=== PATIENT | male | born 1975 | race Caucasian/White ===

== ENCOUNTER → 2020-11-15 08:43 | Outpatient (BNVA) | payer OTHER, SELFPAY | PROVIDERS: PCP Internal Medicine Pulmonary Disease; Visit Provider Internal Medicine Gastroenterology | DX: Z76.89 Persons encountering health services in other specified circumstances (principal) ==

== ENCOUNTER → 2021-05-26 09:02 | Outpatient (BNVA) | payer OTHER, SELFPAY | PROVIDERS: PCP Internal Medicine Pulmonary Disease; Visit Provider Internal Medicine Gastroenterology ==

== ENCOUNTER 2021-06-03 08:49 | Outpatient (REF) | payer OTHER, SELFPAY ==
--- NOTE | ~2021-06-03 | US_ITS ---
EXAMINATION: US ABDOMEN LIMITED CLINICAL INFORMATION: Alcoholic cirrhosis of liver without ascites. COMPARISON: Ultrasound abdomen complete 08/09/2020 and 05/01/2017. CT abdomen 12/08/2019. TECHNIQUE: Real-time imaging of the right upper quadrant abdominal viscera. FINDINGS: PANCREAS: Pancreas appears echogenic. LIVER: Normal. The liver is normal in size. The liver contour is normal. Parenchymal echogenicity is normal. No focal hepatic lesion. There is no intrahepatic biliary duct dilatation seen. GALLBLADDER: Normal. The gallbladder is physiologically distended without evidence of stones, sludge, polyps, wall thickening or pericholecystic fluid. COMMON BILE DUCT: Normal in caliber measuring 0.3 cm in diameter. RIGHT KIDNEY: There is a 4 cm cyst in the midpole. There is a 2 mm echogenic focus with twinkle artifact in the midpole questionable for a small stone. No hydronephrosis or focal parenchymal lesions. The kidney measures 12.0 cm in maximum dimension. FREE FLUID: None. US/US abdomen limited IMPRESSION: Normal-appearing liver. Echogenic appearing pancreas questionable for fatty infiltration. Right renal cysts and question small right renal stone.
== END 2021-06-03 08:50 | disposition home or self-care (01) ==
LOC: HO.HMGCX 08:49
PROVIDERS: PCP Internal Medicine Pulmonary Disease; Visit Provider Internal Medicine Gastroenterology
DX: K70.30 Alcoholic cirrhosis of liver without ascites (principal)
CPT/HCPCS: 76705

== ENCOUNTER → 2021-08-11 08:20 | Outpatient (BNVA) | payer OTHER, SELFPAY | PROVIDERS: Referring Provider Internal Medicine Pulmonary Disease; Visit Provider Internal Medicine Gastroenterology | DX: Z12.11 Encounter for screening for malignant neoplasm of colon (principal); K70.30 Alcoholic cirrhosis of liver without ascites; K59.09 Other constipation; Z79.01 Long term (current) use of anticoagulants; Z80.0 Family history of malignant neoplasm of digestive organs | CPT/HCPCS: 99212 ==

== ENCOUNTER → 2021-09-20 10:12 | Outpatient (BNVA) | payer OTHER, SELFPAY | PROVIDERS: PCP Internal Medicine Pulmonary Disease; Visit Provider Internal Medicine | DX: Z95.2 Presence of prosthetic heart valve (principal); Z51.81 Encounter for therapeutic drug level monitoring; Z79.01 Long term (current) use of anticoagulants | CPT/HCPCS: 85610; 99202 ==

== ENCOUNTER → 2021-09-28 09:02 | Outpatient (BNVA) | payer OTHER, SELFPAY | PROVIDERS: PCP Internal Medicine Pulmonary Disease; Visit Provider Internal Medicine | DX: Z95.2 Presence of prosthetic heart valve (principal); Z51.81 Encounter for therapeutic drug level monitoring; Z79.01 Long term (current) use of anticoagulants | CPT/HCPCS: 85610; 99211 ==

== ENCOUNTER → 2021-10-03 09:17 | Outpatient (BNVA) | payer OTHER, SELFPAY | PROVIDERS: PCP Internal Medicine Pulmonary Disease; Visit Provider Internal Medicine | DX: Z95.2 Presence of prosthetic heart valve (principal); Z51.81 Encounter for therapeutic drug level monitoring; Z79.01 Long term (current) use of anticoagulants | CPT/HCPCS: 85610; 99211 ==

== ENCOUNTER → 2021-10-13 10:36 | Outpatient (BNVA) | payer OTHER, SELFPAY | PROVIDERS: PCP Internal Medicine Pulmonary Disease; Visit Provider Internal Medicine | DX: Z95.2 Presence of prosthetic heart valve (principal); Z51.81 Encounter for therapeutic drug level monitoring; Z79.01 Long term (current) use of anticoagulants | CPT/HCPCS: 85610; 99211 ==

== ENCOUNTER → 2021-10-19 08:28 | Outpatient (BNVA) | payer OTHER, SELFPAY | PROVIDERS: PCP Internal Medicine Pulmonary Disease; Visit Provider Internal Medicine | DX: Z95.2 Presence of prosthetic heart valve (principal); Z51.81 Encounter for therapeutic drug level monitoring; Z79.01 Long term (current) use of anticoagulants | CPT/HCPCS: 85610; 99211 ==

== ENCOUNTER → 2021-10-27 08:29 | Outpatient (BNVA) | payer OTHER, SELFPAY | PROVIDERS: PCP Internal Medicine Pulmonary Disease; Visit Provider Internal Medicine | DX: Z95.2 Presence of prosthetic heart valve (principal); Z51.81 Encounter for therapeutic drug level monitoring; Z79.01 Long term (current) use of anticoagulants | CPT/HCPCS: 85610; 99211 ==

== ENCOUNTER → 2021-11-03 08:24 | Outpatient (BNVA) | payer OTHER, SELFPAY | PROVIDERS: PCP Internal Medicine Pulmonary Disease; Visit Provider Internal Medicine | DX: Z95.2 Presence of prosthetic heart valve (principal); Z51.81 Encounter for therapeutic drug level monitoring; Z79.01 Long term (current) use of anticoagulants | CPT/HCPCS: 85610; 99211 ==

== ENCOUNTER → 2021-11-17 08:25 | Outpatient (BNVA) | payer OTHER, SELFPAY | PROVIDERS: PCP Internal Medicine Pulmonary Disease; Visit Provider Internal Medicine | DX: Z95.2 Presence of prosthetic heart valve (principal); Z51.81 Encounter for therapeutic drug level monitoring; Z79.01 Long term (current) use of anticoagulants | CPT/HCPCS: 85610; 99211 ==

== ENCOUNTER → 2021-12-01 08:38 | Outpatient (BNVA) | payer OTHER, SELFPAY | PROVIDERS: Visit Provider Internal Medicine | DX: Z95.2 Presence of prosthetic heart valve (principal); Z51.81 Encounter for therapeutic drug level monitoring; Z79.01 Long term (current) use of anticoagulants | CPT/HCPCS: 85610; 99211 ==

== ENCOUNTER → 2021-12-15 08:42 | Outpatient (BNVA) | payer OTHER, SELFPAY | PROVIDERS: Visit Provider Internal Medicine | DX: Z95.2 Presence of prosthetic heart valve (principal); Z51.81 Encounter for therapeutic drug level monitoring; Z79.01 Long term (current) use of anticoagulants | CPT/HCPCS: 85610; 99211 ==

== ENCOUNTER → 2022-01-05 08:39 | Outpatient (BNVA) | payer OTHER, SELFPAY | PROVIDERS: Visit Provider Internal Medicine | DX: Z95.2 Presence of prosthetic heart valve (principal); Z51.81 Encounter for therapeutic drug level monitoring; Z79.01 Long term (current) use of anticoagulants | CPT/HCPCS: 85610; 99211 ==

== ENCOUNTER → 2022-01-26 08:41 | Outpatient (BNVA) | payer OTHER, SELFPAY | PROVIDERS: PCP Registered Nurse; Visit Provider Internal Medicine | DX: Z95.2 Presence of prosthetic heart valve (principal); Z51.81 Encounter for therapeutic drug level monitoring; Z79.01 Long term (current) use of anticoagulants | CPT/HCPCS: 85610; 99211 ==

== ENCOUNTER → 2022-02-16 08:40 | Outpatient (BNVA) | payer OTHER, SELFPAY | PROVIDERS: PCP Registered Nurse; Visit Provider Internal Medicine | DX: Z95.2 Presence of prosthetic heart valve (principal); Z51.81 Encounter for therapeutic drug level monitoring; Z79.01 Long term (current) use of anticoagulants | CPT/HCPCS: 85610; 99211 ==

== ENCOUNTER → 2022-02-24 08:29 | Outpatient (BNVA) | payer OTHER, SELFPAY | PROVIDERS: PCP Registered Nurse; Visit Provider Internal Medicine | DX: Z95.2 Presence of prosthetic heart valve (principal); Z79.01 Long term (current) use of anticoagulants; Z51.81 Encounter for therapeutic drug level monitoring | CPT/HCPCS: 85610; 99211 ==

== ENCOUNTER → 2022-03-03 08:26 | Outpatient (BNVA) | payer OTHER, SELFPAY | PROVIDERS: PCP Registered Nurse; Visit Provider Internal Medicine | DX: Z95.2 Presence of prosthetic heart valve (principal); Z79.01 Long term (current) use of anticoagulants; Z51.81 Encounter for therapeutic drug level monitoring | CPT/HCPCS: 85610; 99211 ==

== ENCOUNTER → 2022-03-10 09:43 | Outpatient (BNVA) | payer OTHER, SELFPAY | PROVIDERS: PCP Registered Nurse; Visit Provider Internal Medicine | DX: Z95.2 Presence of prosthetic heart valve (principal); Z79.01 Long term (current) use of anticoagulants; Z51.81 Encounter for therapeutic drug level monitoring | CPT/HCPCS: 85610; 99211 ==

== ENCOUNTER → 2022-03-16 09:48 | Outpatient (BNVA) | payer OTHER, SELFPAY | PROVIDERS: PCP Registered Nurse; Visit Provider Internal Medicine | DX: Z95.2 Presence of prosthetic heart valve (principal); Z79.01 Long term (current) use of anticoagulants; Z51.81 Encounter for therapeutic drug level monitoring | CPT/HCPCS: 85610; 99211 ==

== ENCOUNTER → 2022-03-24 09:17 | Outpatient (BNVA) | payer OTHER, SELFPAY | PROVIDERS: PCP Registered Nurse; Visit Provider Internal Medicine | DX: Z95.2 Presence of prosthetic heart valve (principal); Z79.01 Long term (current) use of anticoagulants; Z51.81 Encounter for therapeutic drug level monitoring | CPT/HCPCS: 85610; 99211 ==

== ENCOUNTER → 2022-03-31 09:38 | Outpatient (BNVA) | payer OTHER, SELFPAY | PROVIDERS: PCP Internal Medicine Cardiovascular Disease; Visit Provider Internal Medicine | DX: Z95.2 Presence of prosthetic heart valve (principal); Z79.01 Long term (current) use of anticoagulants; Z51.81 Encounter for therapeutic drug level monitoring | CPT/HCPCS: 85610; 99211 ==

== ENCOUNTER → 2022-04-14 09:30 | Outpatient (BNVA) | payer OTHER, SELFPAY | PROVIDERS: PCP Internal Medicine Cardiovascular Disease; Visit Provider Internal Medicine | DX: Z95.2 Presence of prosthetic heart valve (principal); Z79.01 Long term (current) use of anticoagulants; Z51.81 Encounter for therapeutic drug level monitoring | CPT/HCPCS: 85610; 99211 ==

== ENCOUNTER → 2022-04-27 10:19 | Outpatient (BNVA) | payer OTHER, SELFPAY | PROVIDERS: Visit Provider Internal Medicine Gastroenterology | DX: K59.09 Other constipation (principal); K70.30 Alcoholic cirrhosis of liver without ascites; B19.20 Unspecified viral hepatitis C without hepatic coma; Z95.2 Presence of prosthetic heart valve; Z79.01 Long term (current) use of anticoagulants; Z80.0 Family history of malignant neoplasm of digestive organs | CPT/HCPCS: 99212 ==

== ENCOUNTER → 2022-04-28 09:31 | Outpatient (BNVA) | payer OTHER, SELFPAY | PROVIDERS: PCP Internal Medicine Cardiovascular Disease; Visit Provider Internal Medicine | DX: Z95.2 Presence of prosthetic heart valve (principal); Z79.01 Long term (current) use of anticoagulants; Z51.81 Encounter for therapeutic drug level monitoring | CPT/HCPCS: 85610; 99211 ==

== ENCOUNTER → 2022-05-19 09:40 | Outpatient (BNVA) | payer OTHER, SELFPAY | PROVIDERS: PCP Internal Medicine Cardiovascular Disease; Visit Provider Internal Medicine | DX: Z95.2 Presence of prosthetic heart valve (principal); Z79.01 Long term (current) use of anticoagulants; Z51.81 Encounter for therapeutic drug level monitoring | CPT/HCPCS: 85610; 99211 ==

== ENCOUNTER 2022-05-31 08:22 | Outpatient (REF) | payer OTHER, SELFPAY ==
--- NOTE | ~2022-05-31 | US_ITS ---
EXAMINATION: US ABDOMEN LIMITED CLINICAL INFORMATION: Alcoholic cirrhosis of liver without ascites. COMPARISON: Ultrasound abdomen limited dated 06/03/2021. Ultrasound abdomen complete dated 08/09/2020. CT abdomen without and with contrast dated 12/08/2019. TECHNIQUE: Real-time imaging of the right upper quadrant abdominal viscera. FINDINGS: PANCREAS: The pancreas mildly echogenic but no focal lesion seen.. LIVER: There is increased liver echogenicity The liver is normal in size. The liver contour is normal. No focal hepatic lesion. There is no intrahepatic biliary duct dilatation seen. There is no evidence of ascites. GALLBLADDER: Gallbladder wall thickness is 0.38 cm. The gallbladder is physiologically distended without evidence of stones, sludge, polyps, wall thickening or pericholecystic fluid. COMMON BILE DUCT: Normal in caliber measuring 0.36 cm in diameter. RIGHT KIDNEY: There is anechoic cyst in midpole measuring 4.6 x 4.1 x 4.6 cm No hydronephrosis or renal calculi. The kidney measures 10.9 cm in maximum dimension. FREE FLUID: None. US/US abdomen limited IMPRESSION: 4.6 cm cyst midpole right kidney. Previously it measured 4 cm Likely fatty infiltration of pancreas similar to previous study. Hepatic steatosis. New since previous study.
== END 2022-05-31 08:23 | disposition home or self-care (01) ==
LOC: HO.HMGCX 08:22
PROVIDERS: Visit Provider Internal Medicine Gastroenterology
DX: K70.30 Alcoholic cirrhosis of liver without ascites (principal)
CPT/HCPCS: 76705

== ENCOUNTER → 2022-06-02 09:21 | Outpatient (BNVA) | payer OTHER, SELFPAY | PROVIDERS: PCP Internal Medicine Cardiovascular Disease; Visit Provider Internal Medicine | DX: Z95.2 Presence of prosthetic heart valve (principal); Z51.81 Encounter for therapeutic drug level monitoring; Z79.01 Long term (current) use of anticoagulants | CPT/HCPCS: 85610; 99211 ==

== ENCOUNTER → 2022-06-14 09:20 | Outpatient (BNVA) | payer OTHER, SELFPAY | PROVIDERS: PCP Internal Medicine Cardiovascular Disease; Visit Provider Internal Medicine | DX: Z95.2 Presence of prosthetic heart valve (principal); Z79.01 Long term (current) use of anticoagulants; Z51.81 Encounter for therapeutic drug level monitoring | CPT/HCPCS: 85610; 99211 ==

== ENCOUNTER → 2022-07-14 09:29 | Outpatient (BNVA) | payer OTHER, SELFPAY | PROVIDERS: PCP Internal Medicine Cardiovascular Disease; Visit Provider Internal Medicine | DX: Z95.2 Presence of prosthetic heart valve (principal); Z51.81 Encounter for therapeutic drug level monitoring; Z79.01 Long term (current) use of anticoagulants | CPT/HCPCS: 85610; 99211 ==

== ENCOUNTER → 2022-08-04 09:33 | Outpatient (BNVA) | payer OTHER, SELFPAY | PROVIDERS: PCP Internal Medicine Cardiovascular Disease; Visit Provider Internal Medicine | DX: Z95.2 Presence of prosthetic heart valve (principal); Z51.81 Encounter for therapeutic drug level monitoring; Z79.01 Long term (current) use of anticoagulants | CPT/HCPCS: 85610; 99211 ==

== ENCOUNTER → 2022-08-14 09:19 | Outpatient (BNVA) | payer OTHER, SELFPAY | PROVIDERS: PCP Internal Medicine Cardiovascular Disease; Visit Provider Internal Medicine | DX: Z95.2 Presence of prosthetic heart valve (principal); Z79.01 Long term (current) use of anticoagulants; Z51.81 Encounter for therapeutic drug level monitoring | CPT/HCPCS: 85610; 99211 ==

== ENCOUNTER → 2022-08-29 09:34 | Outpatient (BNVA) | payer OTHER, SELFPAY | PROVIDERS: PCP Internal Medicine Cardiovascular Disease; Visit Provider Internal Medicine | DX: Z95.2 Presence of prosthetic heart valve (principal); Z79.01 Long term (current) use of anticoagulants; Z51.81 Encounter for therapeutic drug level monitoring | CPT/HCPCS: 85610; 99212 ==

== ENCOUNTER 2022-09-04 10:23 | Day surgery (SDC) | payer OTHER, SELFPAY ==
[2022-08-29 15:42] VITALS: BMI 27.2
--- NOTE | 2022-09-01 09:38 | HO.ANESPROP2 ---
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 s/p 2003 [facility] mechanical aortic valve, mitral repair, PFO closure (lovenox bridge preop) [facility] Active Problems Active Problems: All Active Problems (Updated 08/29/22 @ 15:35 by Sofia Luna, RN) Type 2 diabetes mellitus (Acute) Hepatitis C virus infection (Acute) Alcoholic cirrhosis of liver without ascites (Acute) Chronic anticoagulation (Acute) Family history of colon cancer (Acute) Colon cancer screening (Acute) Chronic constipation (Acute) Current use of anticoagulant therapy (Acute) Past Medical History Medical History (Updated 08/29/22 @ 15:35 by Sofia Luna, SHERRIE) Aortic valve insufficiency Cirrhosis Hepatitis C History of intravenous drug abuse Mitral valve stenosis, non-rheumatic On anticoagulant therapy On beta andreas at home Family History Family History Father Alive and well Mother Hx of type 2 diabetes mellitus Surgical History Surgical History (Updated 08/29/22 @ 15:33 by Sofia Luna RN) H/O aortic valve replacement H/O skin graft History of liver biopsy Social History Social History Alcohol intake: former Year quit: 2017 Substance Use Type: Marijuana Substance Use Type Other:: clean for 10 years Are you DNR?: No Advance Directives: No Advance Directives Information Provided: Yes Recently lost weight without trying: No Nutrition Risks: No Nutritional Risk Poor oral hygiene: No Meds Allergies Allergy/AdvReac Type Severity Reaction Status Date / Time No Known Allergies Allergy Verified 08/29/22 15:36 Home Medications Medication Instructions Recorded Confirmed Last Taken Type blood sugar diagnostic #10 ea 11/15/20 08/04/22 Unknown History metformin 500 mg tablet 500 mg PO BID 11/15/20 09/04/22 09/03/22 History metoprolol succinate 50 mg 50 mg PO DAILY 11/15/20 08/29/22 09/04/22 History tablet,extended release 24 hr simvastatin 40 mg tablet 40 mg PO BEDTIME 11/15/20 08/29/22 09/03/22 History warfarin 1 mg tablet 1 mg PO 2XW 11/15/20 08/29/22 08/29/22 History warfarin 4 mg tablet mg PO 11/15/20 08/29/22 08/29/22 History dulaglutide 1.5 mg/0.5 mL 1.5 mg subcut QWEEK 02/16/22 08/29/22 09/03/22 History subcutaneous pen injector (Trulicity) Exam Exam Date and Time: September 01, 2022 0938 Height,Weight and Vital Signs: Height 6 ft Weight 91.172 kg Narrative Narrative: EKG 04/2022 (per cardiology note) NSR with borderline LVH criteria good r wave progression and no ST-T wave changes ECHO 03/2022 LV systolic function is hyperdynamic with EF >70 Nml diastolic function LA size is normal RV systolic function is normal RA is nml size Mild AR Trace MR No pulmonary htn Asc aorta dilated to 3.5cm No change from 02/2021 Assessment and Plan Assessment Anesthesia Assessment: Chart Reviewed Documented by User: Danette Whittington MD 09/04/22 10:52 [facility] Past Medical History Medical History (Updated 08/29/22 @ 15:35 by Sofia Luna, RN) Aortic valve insufficiency Cirrhosis Hepatitis C History of intravenous drug abuse Mitral valve stenosis, non-rheumatic On anticoagulant therapy On beta andreas at home Family History Family History Father Alive and well Mother Hx of type 2 diabetes mellitus Family history of problems with anesthesia: No Surgical History Surgical History (Updated 08/29/22 @ 15:33 by Sofia Luna, RN) H/O aortic valve replacement H/O skin graft History of liver biopsy History of Problems with Anesthesia: No Social History Social History Alcohol intake: former Year quit: 2017 Substance Use Type: Marijuana Substance Use Type Other:: clean for 10 years Are you DNR?: No Advance Directives: No Advance Directives Information Provided: Yes Recently lost weight without trying: No Nutrition Risks: No Nutritional Risk Poor oral hygiene: No Meds Allergies Allergy/AdvReac Type Severity Reaction Status Date / Time No Known Allergies Allergy Verified 08/29/22 15:36 Home Medications Medication Instructions Recorded Confirmed Last Taken Type blood sugar diagnostic #10 ea 11/15/20 08/04/22 Unknown History metformin 500 mg tablet 500 mg PO BID 11/15/20 09/04/22 09/03/22 History metoprolol succinate 50 mg 50 mg PO DAILY 11/15/20 08/29/22 09/04/22 History tablet,extended release 24 hr simvastatin 40 mg tablet 40 mg PO BEDTIME 11/15/20 08/29/22 09/03/22 History warfarin 1 mg tablet 1 mg PO 2XW 11/15/20 08/29/22 08/29/22 History warfarin 4 mg tablet mg PO 11/15/20 08/29/22 08/29/22 History dulaglutide 1.5 mg/0.5 mL 1.5 mg subcut QWEEK 02/16/22 08/29/22 09/03/22 History subcutaneous pen injector (Trulicity) Exam Airway Mallampati Class: II TM Dist: >3cm Neck ROM: Full Heart: rrr Lungs: cta Assessment and Plan Assessment Anesthesia Assessment: Anesthesia Plan Discussed Final Anesthetic Review Family History of Problems with Anesthesia: No History of Problems with Anesthesia: No NPO: Yes ASA Class: III Final Preanesthetic Review: No Changes in Pt Med Stat, Meds/Allgs Chart Reviewed and Consent Obtained/Reviewed Patient Risk: Intermediate Procedure Risk: Intermediate Anesthetic Plan Anesthetic Plan: MAC: Disposition: Standard PACU
[2022-09-04 10:34] VITALS: BP 124/78; PULSE 91; RESP 18; TEMP 36.1; O2SAT 95
[2022-09-04 10:36] LABS: Glucose, Whole Blood 107 mg/dL (60-115)
[2022-09-04] MEDS: Sodium Phosphate,Mono-Dibasic 133 ML ENEMA PR (10:40)
--- NOTE | 2022-09-04 11:00 | MHC.SHP ---
Pre-Procedural Eval Section A Date of Service: 09/04/22 The patient is an INPATIENT: No Section B Chief Complaint: screening,constipation,hx malignant neoplasm Details of Present Illness: colon cancer screening, cirrhosis - screen for varices Relevant Family History (Specify if Yes): Yes Relevant Social History: Tobacco Use ( former smoker) Present Medications: see Short Stay Collaborative assessment Medical History: Significant History (H/O aortic valve replacement H/O skin graft History of liver biopsy) History of Previous Operations: Relevant previous surgery/procedure and date(s) ( history of aortic valve replaced, history of liver biopsy) Allergies: Allergies Allergy/AdvReac Type Severity Reaction Status Date / Time No Known Allergies Allergy Verified 08/29/22 15:36 Review of Systems Sugical H&P ROS: Negative: Constitution, Cardiovascular, Respiratory and Gastrointestinal Exam Surgical H&P Exam: Normal: Lungs and Normal: Abdomen and Significant Findings: Heart (Mechanical HS) Plan Diagnosis/Plan: Unchanged I have reviewed the history and physical and performed a pertinent physical examination on my patient. No changes have occurred unless specified.
--- NOTE | 2022-09-04 11:04 | PC.NURSE ---
garcia result from [facility]
[2022-09-04 11:05] LABS: Prothrombin Time 11.6 SEC (10.0-13.1)
[2022-09-04 11:06] LABS: Amphetamine Screen Urine Not Detected (Not Detect); Barbiturates, Urine Not Detected (Not Detect); Benzodiazepines Screen Urine Not Detected (Not Detect); Cannabinoid Screen Urine POSITIVE (Not Detect); Cocaine Screen Urine Not Detected (Not Detect); Fentanyl, urine Not Detected (Not Detect); Opiate Screen Urine Not Detected (Not Detect); Phencyclidine Screen Urine Not Detected (Not Detect)
[2022-09-04] MEDS: Lactated Ringers 1,000 ML 50 ML IVCONT (11:18)
--- NOTE | 2022-09-04 11:47 | PM.OP ---
Brief Operative Note Date of Service: 09/04/22 Pre-op diagnosis: colon cancer screening, cirrhosis screen for varices Post-op diagnosis: other (hiatal hernia, gastric polyps, gastritis, colon polyps, diverticulosis, hemorrhoids) Procedure: FLEXIBLE TRANSORAL UPPER GASTROINTESTINAL ENDOSCOPY WITH BIOPSIES AND COLONOSCOPY TILL CECUM WITH SNARE POLYPECTOMY UPPER ENDOSCOPY Consent: Indications for the procedure and potential complications of bleeding, perforation, reaction to medications and missed diagnosis were discussed with the patient and informed consent was obtained. Instrument: Olympus GIF H 190 mid size upper endoscope Monitoring: Vital signs and clinical assessment, continuous EKG monitoring, Pulse oximetry, Carbon Dioxide monitoring and blood pressure monitoring were done throughout the procedure. Procedure: The patient was placed in the left lateral decubitis position and pre-procedure medications were administered and a bite block was placed. The endoscope was inserted into the mouth and advanced under direct vision to the third part of duodenum. A careful inspection was made as the upper endoscope was withdrawn including a retroflexed examination of the proximal stomach; Findings and interventions are described below. Findings: Larynx: Normal Esophagus: GE junction at 36 cms, small hiatal hernia 36 to 38 cms. No varices, esophagitis or Saleem's. Stomach: Mild portal gastropathy and a few 5-8 mm benign appearing polyps in the body of the stomach - biopsied. Mild gastric erythema with a few superficial erosions - biopsies were obtained. Grade 2 flap valve and no gastric varices on retroflexed examination of the cardia. Duodenum: Normal bulb and descending duodenum Intervention: Biopsies as noted above COLONOSCOPY PROCEDURE NOTE Consent: Indications for the procedure and potential complications of bleeding, perforation, reaction to medications and missed diagnosis were discussed with the patient and informed consent was obtained. Instrument: Olympus PCF H 190 L variable stiffness pediatric colonoscope Monitoring: Vital signs and clinical assessment, intermittent blood pressure monitoring, continuous EKG monitoring, Pulse oximetry and Carbon Dioxide monitoring were done throughout the procedure. Colon withdrawl time was 25 minutes. Procedure: The patient was placed in the left lateral decubitis position and pre-procedure medications were administered. After a digital rectal examination of the ano-rectum, the video colonoscope was inserted into the rectum and advanced through the colon to the cecum. The colonoscope was slowly withdrawn in a retrograde panoramic fashion and the colon mucosa was carefully examined including a retroflexed view of the rectum. Findings and interventions are described below. Procedure Difficulty: : Without difficulty Findings: Terminal Ileum: Not evaluated Cecum: Normal Ascending Colon: Normal Transverse Colon: A 10 mm sessile polyp removed with a cold snare. Descending Colon: Normal Sigmoid Colon: Moderate diverticulosis Rectum: Normal Ano-rectum: Moderate internal hemorrhoids Colon preparation: Good after copious irrigation Impression and Post Procedure Diagnosis: Endoscopy Findings: ESOPHAGUS: GE junction at 36 cms, small hiatal hernia 36 to 38 cms. No varices, esophagitis or Saleem's. STOMACH: Mild portal gastropathy and a few 5-8 mm benign appearing polyps in the body of the stomach - biopsied. Mild gastric erythema with a few superficial erosions - biopsies were obtained. Grade 2 flap valve and no gastric varices on retroflexed examination of the cardia. Colonoscopy Findings: One medium sized polyp removed Moderate diverticulosis seen in the sigmoid colon Moderate hemorrhoids on retroflexed exam. Plan: Await pathology results Patient has an appointment on 10/19/22 in the GI Clinic with Gary Soliman M.D.. Repeat Colonoscopy interval based on path results - in 3-5 years if polyps are adenomatous and 10 years if polyps are hyperplastic. Above findings were reviewed with the patient and Gastric Polyps, colon polyps and diverticulosis handouts were given in the discharge area Surgeon: Gary Soliman MD Anesthesia: MAC Was an Typewriters Functional Tester used for this Procedure?: Yes Typewriters Functional Tester: Bob Ken Estimated blood loss (mL): 0 Pathology: other (A. Gastric antrum, B. gastric polyp, C. transverse colon polyp) Condition: stable Disposition: PACU
--- NOTE | 2022-09-04 11:47 | W.PM.OPN ---
Operative Note Operative Note Date of Service: 09/04/22 Narrative: Pre-op diagnosis: colon cancer screening, cirrhosis screen for varices Post-op diagnosis:?other (hiatal hernia, gastric polyps, gastritis, colon polyps, diverticulosis, hemorrhoids) Procedure: FLEXIBLE TRANSORAL UPPER GASTROINTESTINAL ENDOSCOPY WITH BIOPSIES AND COLONOSCOPY TILL CECUM WITH SNARE POLYPECTOMY UPPER ENDOSCOPY Consent:?Indications for the procedure and potential complications of bleeding, perforation, reaction to medications and missed diagnosis were discussed with the patient and informed consent was obtained. Instrument:?Olympus GIF H 190 mid size upper endoscope Monitoring: Vital signs and clinical assessment, continuous EKG monitoring, Pulse oximetry, Carbon Dioxide monitoring and blood pressure monitoring were done throughout the procedure. Procedure:?The patient was placed in the left lateral decubitis position and pre-procedure medications were administered and a bite block was placed. The endoscope was inserted into the mouth and advanced under direct vision to the third part of duodenum. A careful inspection was made as the upper endoscope was withdrawn including a retroflexed examination of the proximal stomach; Findings and interventions are described below. Findings: Larynx:? Normal Esophagus:?GE junction at 36 cms, small hiatal hernia 36 to 38 cms. No varices, esophagitis or Saleem's. Stomach:?Mild portal gastropathy and a few 5-8 mm benign appearing polyps in the body of the stomach - biopsied. Mild gastric erythema with a few superficial erosions - biopsies were obtained. Grade 2 flap valve and no gastric varices on retroflexed examination of the cardia. Duodenum:?Normal bulb and descending duodenum Intervention:?Biopsies as noted above COLONOSCOPY PROCEDURE NOTE Consent:?Indications for the procedure and potential complications of bleeding, perforation, reaction to medications and missed diagnosis were discussed with the patient and informed consent was obtained. Instrument:?Olympus PCF H 190 L variable stiffness pediatric colonoscope Monitoring:?Vital signs and clinical assessment, intermittent blood pressure monitoring, continuous EKG monitoring, Pulse oximetry and Carbon Dioxide monitoring were done throughout the procedure. Colon withdrawl time was 25 minutes. Procedure:?The patient was placed in the left lateral decubitis position and pre-procedure medications were administered. After a digital rectal examination of the ano-rectum, the video colonoscope was inserted into the rectum and advanced through the colon to the cecum. The colonoscope was slowly withdrawn in a retrograde panoramic fashion and the colon mucosa was carefully examined including a retroflexed view of the rectum. Findings and interventions are described below. Procedure Difficulty:?: Without difficulty Findings: Terminal Ileum: Not evaluated Cecum:? Normal Ascending Colon:??Normal Transverse Colon:??A 10 mm sessile polyp removed with a cold snare. Descending Colon:? Normal Sigmoid Colon:??Moderate diverticulosis Rectum:??Normal Ano-rectum:??Moderate internal hemorrhoids Colon preparation:? Good after copious irrigation Impression and Post Procedure Diagnosis: Endoscopy Findings: ESOPHAGUS: GE junction at 36 cms, small hiatal hernia 36 to 38 cms. No varices, esophagitis or Saleem's. STOMACH: Mild portal gastropathy and a few 5-8 mm benign appearing polyps in the body of the stomach - biopsied. Mild gastric erythema with a few superficial erosions - biopsies were obtained. Grade 2 flap valve and no gastric varices on retroflexed examination of the cardia. Colonoscopy Findings: One medium sized polyp removed Moderate diverticulosis seen in the sigmoid colon Moderate hemorrhoids on retroflexed exam. Plan: Await pathology results Patient has an appointment on 10/19/22 in the GI Clinic with Gary Soliman M.D.. Repeat Colonoscopy interval based on path results - in 3-5 years if polyps are adenomatous and 10 years if polyps are hyperplastic. Above findings were reviewed with the patient and Gastric Polyps, colon polyps and diverticulosis handouts were given in the discharge area Post procedure bridge therapy plan: ?? Restart Warfarin on Tuesday 09/04 after colonoscopy - to take 12mg on Sunday and Sunday then resume usual dosing Start Lovenox Wednesday 09/05 7pm dose Nutritional guidance given: no greens after colonoscopy F/U INR:Saturday 09/08 Surgeon: Gary Soliman MD Anesthesia:?MAC Was an Drill Sharpener used for this Procedure?:?Yes Drill Sharpener:?Bob Ken Estimated blood loss (mL):?0 Pathology:?other (A.? Gastric antrum, B.? gastric polyp, C. transverse colon polyp) Condition:?stable Disposition:?PACU
[2022-09-04 12:46] VITALS: BP 101/64; PULSE 87; RESP 16; TEMP 36.7; O2SAT 95
[2022-09-04 13:01] VITALS: BP 102/65; PULSE 84; RESP 16; TEMP 36.7; O2SAT 96
== END 2022-09-04 13:35 | disposition home or self-care (01) ==
PROVIDERS: Nurse Practitioner; PCP Registered Nurse; Visit Provider Internal Medicine Gastroenterology
PROC: (CPT 45385; principal; 2022-09-04 12:00)
DX: Z12.11 Encounter for screening for malignant neoplasm of colon (principal); K63.5 Polyp of colon; K57.30 Diverticulosis of large intestine without perforation or abscess without bleeding; K64.8 Other hemorrhoids; K59.09 Other constipation; K74.60 Unspecified cirrhosis of liver; K44.9 Diaphragmatic hernia without obstruction or gangrene; K31.7 Polyp of stomach and duodenum; K29.50 Unspecified chronic gastritis without bleeding; Z95.2 Presence of prosthetic heart valve; Z79.01 Long term (current) use of anticoagulants; Z79.899 Other long term (current) drug therapy; Z87.891 Personal history of nicotine dependence
CPT/HCPCS: 45385; 43239; 36415; 80307; 82947; 85610; 88305; 88342

== ENCOUNTER → 2022-09-08 09:49 | Outpatient (BNVA) | payer OTHER, SELFPAY | PROVIDERS: PCP Registered Nurse; Visit Provider Internal Medicine | DX: Z95.2 Presence of prosthetic heart valve (principal); Z79.01 Long term (current) use of anticoagulants; Z51.81 Encounter for therapeutic drug level monitoring | CPT/HCPCS: 85610; 99211 ==

== ENCOUNTER → 2022-09-11 08:51 | Outpatient (BNVA) | payer OTHER, SELFPAY | PROVIDERS: PCP Registered Nurse; Visit Provider Internal Medicine | DX: Z95.2 Presence of prosthetic heart valve (principal); Z79.01 Long term (current) use of anticoagulants; Z51.81 Encounter for therapeutic drug level monitoring | CPT/HCPCS: 85610; 99211 ==

== ENCOUNTER → 2022-09-19 08:26 | Outpatient (BNVA) | payer OTHER, SELFPAY | PROVIDERS: PCP Registered Nurse; Visit Provider Internal Medicine | DX: Z95.2 Presence of prosthetic heart valve (principal); Z79.01 Long term (current) use of anticoagulants; Z51.81 Encounter for therapeutic drug level monitoring | CPT/HCPCS: 85610; 99211 ==

== ENCOUNTER → 2022-10-02 09:19 | Outpatient (BNVA) | payer OTHER, SELFPAY | PROVIDERS: PCP Registered Nurse; Visit Provider Internal Medicine | DX: Z95.2 Presence of prosthetic heart valve (principal); Z79.01 Long term (current) use of anticoagulants; Z51.81 Encounter for therapeutic drug level monitoring | CPT/HCPCS: 85610; 99211 ==

== ENCOUNTER → 2022-10-19 10:50 | Outpatient (BNVA) | payer OTHER, SELFPAY | PROVIDERS: PCP Registered Nurse; Visit Provider Internal Medicine Gastroenterology | DX: K70.30 Alcoholic cirrhosis of liver without ascites (principal); K59.09 Other constipation; Z80.0 Family history of malignant neoplasm of digestive organs | CPT/HCPCS: 99212 ==

== ENCOUNTER → 2022-10-23 09:19 | Outpatient (BNVA) | payer OTHER, SELFPAY | PROVIDERS: PCP Registered Nurse; Visit Provider Internal Medicine | DX: Z95.2 Presence of prosthetic heart valve (principal); Z51.81 Encounter for therapeutic drug level monitoring; Z79.01 Long term (current) use of anticoagulants | CPT/HCPCS: 85610; 99211 ==

== ENCOUNTER → 2022-11-10 09:19 | Outpatient (BNVA) | payer OTHER, SELFPAY | PROVIDERS: PCP Registered Nurse; Visit Provider Internal Medicine | DX: Z95.2 Presence of prosthetic heart valve (principal); Z79.01 Long term (current) use of anticoagulants; Z51.81 Encounter for therapeutic drug level monitoring | CPT/HCPCS: 85610; 99211 ==

== ENCOUNTER 2022-11-27 08:17 | Outpatient (REF) | payer OTHER, SELFPAY ==
--- NOTE | ~2022-11-27 | US_ITS ---
EXAMINATION: US ABDOMEN COMPLETE CLINICAL INFORMATION: Alcoholic cirrhosis without ascites. Screen for HCC and ascites. COMPARISON: Ultrasound abdomen limited 05/31/2022. CT abdomen without and with contrast 12/08/2019. TECHNIQUE: Real-time imaging of the abdominal viscera. FINDINGS: PANCREAS: Normal. ABDOMINAL AORTA: The proximal, mid, and distal segments are normal in caliber. INFERIOR VENA CAVA: Visualized portions are normal. LIVER: The liver is normal in size. The liver contour is normal. Mildly increased hepatic echogenicity and sound attenuation suggesting mild hepatic steatosis. No focal hepatic lesion. There is no intrahepatic biliary duct dilatation seen. GALLBLADDER: Normal. The gallbladder is physiologically distended without evidence of stones, sludge, polyps, wall thickening or pericholecystic fluid. COMMON BILE DUCT: Normal in caliber measuring 0.3 cm in diameter. RIGHT KIDNEY: 5 cm simple cyst of the right mid kidney. No hydronephrosis or renal calculi. The kidney measures 11.4 cm in maximum dimension. LEFT KIDNEY: Several anechoic simple renal cortical cysts are present the largest 1.8 cm in diameter. No hydronephrosis or renal calculi. The kidney measures 11.3 cm in maximum dimension. SPLEEN: The spleen is borderline enlarged. The spleen measures 13.4 cm in maximum dimension. FREE FLUID: None. US/US abdomen complete IMPRESSION: Sonographic appearance suggests mild hepatic steatosis. No focal liver lesions seen. Borderline splenomegaly.
== END 2022-11-27 08:18 | disposition home or self-care (01) ==
LOC: HO.HMGCX 08:17
PROVIDERS: PCP Registered Nurse; Visit Provider Internal Medicine Gastroenterology
DX: K70.30 Alcoholic cirrhosis of liver without ascites (principal)
CPT/HCPCS: 76700

== ENCOUNTER → 2022-12-08 09:20 | Outpatient (BNVA) | payer OTHER, SELFPAY | PROVIDERS: PCP Registered Nurse; Visit Provider Internal Medicine | DX: Z95.2 Presence of prosthetic heart valve (principal); Z79.01 Long term (current) use of anticoagulants; Z51.81 Encounter for therapeutic drug level monitoring | CPT/HCPCS: 85610; 99211 ==

== ENCOUNTER → 2023-01-08 09:41 | Outpatient (BNVA) | payer OTHER, SELFPAY | PROVIDERS: PCP Registered Nurse; Visit Provider Internal Medicine | DX: Z95.2 Presence of prosthetic heart valve (principal); Z79.01 Long term (current) use of anticoagulants; Z51.81 Encounter for therapeutic drug level monitoring | CPT/HCPCS: 85610; 99211 ==

== ENCOUNTER → 2023-02-05 09:29 | Outpatient (BNVA) | payer OTHER, SELFPAY | PROVIDERS: PCP Student in an Organized Health Care Education/Training Program; Visit Provider Internal Medicine | DX: Z95.2 Presence of prosthetic heart valve (principal); Z79.01 Long term (current) use of anticoagulants; Z51.81 Encounter for therapeutic drug level monitoring | CPT/HCPCS: 85610; 99211 ==

== ENCOUNTER → 2023-02-12 09:24 | Outpatient (BNVA) | payer OTHER, SELFPAY | PROVIDERS: PCP Student in an Organized Health Care Education/Training Program; Visit Provider Internal Medicine | DX: Z95.2 Presence of prosthetic heart valve (principal); Z79.01 Long term (current) use of anticoagulants; Z51.81 Encounter for therapeutic drug level monitoring | CPT/HCPCS: 85610; 99211 ==

== ENCOUNTER → 2023-03-12 09:32 | Outpatient (BNVA) | payer OTHER, SELFPAY | PROVIDERS: PCP Student in an Organized Health Care Education/Training Program; Visit Provider Internal Medicine | DX: Z95.2 Presence of prosthetic heart valve (principal); Z79.01 Long term (current) use of anticoagulants; Z51.81 Encounter for therapeutic drug level monitoring | CPT/HCPCS: 85610; 99211 ==

== ENCOUNTER → 2023-04-10 09:17 | Outpatient (BNVA) | payer OTHER, SELFPAY | PROVIDERS: PCP Student in an Organized Health Care Education/Training Program; Visit Provider Internal Medicine | DX: Z95.2 Presence of prosthetic heart valve (principal); Z79.01 Long term (current) use of anticoagulants; Z51.81 Encounter for therapeutic drug level monitoring | CPT/HCPCS: 85610; 99211 ==

== ENCOUNTER → 2023-04-26 09:19 | Outpatient (BNVA) | payer OTHER, SELFPAY | PROVIDERS: PCP Student in an Organized Health Care Education/Training Program; Visit Provider Internal Medicine Gastroenterology | DX: K70.30 Alcoholic cirrhosis of liver without ascites (principal); K59.09 Other constipation; Z79.01 Long term (current) use of anticoagulants; Z80.0 Family history of malignant neoplasm of digestive organs | CPT/HCPCS: 99212 ==

== ENCOUNTER → 2023-05-07 09:20 | Outpatient (BNVA) | payer OTHER, SELFPAY | PROVIDERS: PCP Student in an Organized Health Care Education/Training Program; Visit Provider Internal Medicine | DX: Z95.2 Presence of prosthetic heart valve (principal); Z51.81 Encounter for therapeutic drug level monitoring; Z79.01 Long term (current) use of anticoagulants | CPT/HCPCS: 85610; 99211 ==

== ENCOUNTER → 2023-05-14 09:30 | Outpatient (BNVA) | payer OTHER, SELFPAY | PROVIDERS: PCP Student in an Organized Health Care Education/Training Program; Visit Provider Internal Medicine | DX: Z95.2 Presence of prosthetic heart valve (principal); Z79.01 Long term (current) use of anticoagulants; Z51.81 Encounter for therapeutic drug level monitoring | CPT/HCPCS: 85610; 99211 ==

== ENCOUNTER 2023-05-18 08:21 | Outpatient (REF) | payer OTHER, SELFPAY ==
--- NOTE | ~2023-05-18 | US_ITS ---
EXAMINATION: US ABDOMEN LIMITED WITH LIVER ELASTOGRAPHY CLINICAL INFORMATION: Alcoholic cirrhosis COMPARISON: Ultrasound of November 27, [address] of December 08, 2019 TECHNIQUE: Real-time imaging of the abdominal viscera. Noninvasive ultrasound liver fibrosis assessment is performed using Raji ElastPQ point quantification shear wave elastography (2D-SWE) with a C5-2 MHz transducer. Multiple elastography samples are obtained. FINDINGS: PANCREAS: Normal. The visualized pancreatic head and body are normal in appearance. The remainder of the pancreas is obscured from visualization by the overlying bowel gas. LIVER: Hepatomegaly is present by my measuring of the imaging and not from worksheet. There is homogeneously increased echogenicity consistent with fatty infiltration or hepatocellular disease of other etiology. No focal mass is seen. No intrahepatic bile duct dilatation. The right lobe measures 21 cm in length. The left lobe measures 8 cm in length. Portal flow is hepatopedal Shear wave liver elastography median stiffness is 1.80 m/s (reference: normal median stiffness is 1.3 m/s or less). IQR/median stiffness to assess sampling precision is 0.08 (reference: good quality data set is IQR/median stiffness of 0.15 or less). GALLBLADDER: Normal. The gallbladder is physiologically distended without evidence of stones, sludge, polyps, wall thickening or pericholecystic fluid. COMMON BILE DUCT: Normal in caliber measuring 0.2 cm in diameter. RIGHT KIDNEY: Normal. No hydronephrosis. No renal calculi or focal solid parenchymal lesions. There is a simple appearing upper pole cyst measuring approximately 5.1 x 4.2 x 5.2 cm in size which does not require follow-up. The kidney measures 12.2 cm in maximum dimension. FREE FLUID: None. US/US abdomen ribeiro w elastography IMPRESSION: 1. Hepatomegaly with increased echogenicity consistent with fatty infiltration/hepatocellular disease of other etiology. 2. Liver elastography: Measurements are suggestive of compensated advanced chronic liver disease but need further test for confirmation. REFERENCE: Society of Radiologists in Ultrasound Liver Stiffness Thresholds (2020): LIVER STIFFNESS THRESHOLDS: *Liver Stiffness equal or less than 1.3 m/s: High probability of being normal. *Liver Stiffness less than 1.7 m/s: In the absence of other known clinical signs, rules out compensated advanced chronic liver disease. *Liver Stiffness 1.7-2.1 m/s: Suggestive of compensated advanced chronic liver disease but need further test for confirmation. *Liver Stiffness over 2.1 m/s: Rules in compensated advanced chronic liver disease. *Liver Stiffness over 2.4 m/s: Suggestive of clinically significant portal hypertension. QUALITY OF DATA SET: *IQR/Median value equal or less than 0.15 implies a quality data set. *IQR/Median value over 0.15 implies a poor quality data set. SIGNIFICANT CHANGE FROM PRIOR EXAM: Significant change if liver stiffness measurement is 10% or greater from prior exam. OTHER CONSIDERATIONS: The stage of liver fibrosis may be overestimated in the setting of acute hepatitis, liver inflammation, elevated liver function tests, hepatic vascular congestion, obstructive cholestasis, non-fasting state, and infiltrative diseases such as amyloidosis and lymphoma. In some patients with NAFLD, the liver stiffness thresholds for compensated advanced chronic liver disease may be lower. In causes other than viral hepatitis and NAFLD, liver stiffness thresholds are not well established.
== END 2023-05-18 08:22 | disposition home or self-care (01) ==
LOC: HO.US 08:21
PROVIDERS: PCP Student in an Organized Health Care Education/Training Program; Visit Provider Internal Medicine Gastroenterology
DX: K70.30 Alcoholic cirrhosis of liver without ascites (principal)
CPT/HCPCS: 76705; 76981

== ENCOUNTER 2023-06-11 09:20 | Outpatient (AMB) | payer OTHER, SELFPAY ==
[2023-06-11 09:31] LABS: Prothrombin Time Whole Bld POC 42.1 sec (11.1-13.5); ~PT, ~INR - Anti Coag Clinic 3.5 (0.9-1.1)
--- NOTE | 2023-06-11 09:36 | MHC.OFFVISCO ---
Intake Intake Visit Reasons: Anticoagulation Allergies No Known Allergies Allergy (Verified 06/11/23 09:31) Medication List - Last Reconciled 06/11/23 by Jacqui Mendoza RN blood sugar diagnostic As directed dulaglutide (Trulicity) 1.5 mg subcut QWEEK metformin 500 mg PO BID metoprolol succinate ER 50 mg PO DAILY psyllium 1 tbsp PO BID 90 days sennosides-docusate sodium 8.6-50 mg (Senna Plus) 1 tab-cap PO BEDTIME 90 days simvastatin 40 mg PO BEDTIME warfarin mg See Protocol PO Nursing Note INR: 3.5 in therapeutic range Medications and supplements reviewed No changes in medications, or supplements, PT TOTALLY QUIT DRINKING Denies any signs and symptoms of bleeding or bruising or clotting. 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
== END 2023-06-11 09:38 | disposition home or self-care (01) ==
LOC: HO.ACS 09:20
PROVIDERS: PCP Student in an Organized Health Care Education/Training Program; Visit Provider Internal Medicine
DX: Z79.01 Long term (current) use of anticoagulants (principal)

== ENCOUNTER → 2023-06-11 09:20 | Outpatient (BNVA) | payer OTHER, SELFPAY | PROVIDERS: PCP Student in an Organized Health Care Education/Training Program; Visit Provider Internal Medicine | DX: Z95.2 Presence of prosthetic heart valve (principal); Z79.01 Long term (current) use of anticoagulants; Z51.81 Encounter for therapeutic drug level monitoring | CPT/HCPCS: 85610; 99211 ==

== ENCOUNTER 2023-07-12 09:30 | Outpatient (AMB) | payer OTHER, SELFPAY ==
[2023-07-12 09:38] LABS: Prothrombin Time Whole Bld POC 24.6 sec (11.1-13.5); ~PT, ~INR - Anti Coag Clinic 2.1 (0.9-1.1)
--- NOTE | 2023-07-12 09:40 | MHC.OFFVISCO ---
Intake Intake Visit Reasons: Anticoagulation Allergies No Known Allergies Allergy (Verified 07/12/23 09:31) Medication List - Last Reconciled 07/12/23 by Jacqui Mendoza RN amoxicillin 2,000 mg PO ONCE blood sugar diagnostic As directed dulaglutide (Trulicity) 1.5 mg subcut QWEEK metformin 500 mg PO BID metoprolol succinate ER 50 mg PO DAILY psyllium 1 tbsp PO BID 90 days sennosides-docusate sodium 8.6-50 mg (Senna Plus) 1 tab-cap PO BEDTIME 90 days simvastatin 40 mg PO BEDTIME tadalafil 10 mg PO DAILY warfarin mg See Protocol PO Nursing Note INR: 2.1 in therapeutic range Medications and supplements reviewed New med tadalafil no warfarin interaction, pt going to start B12 Denies any signs and symptoms of bleeding or bruising or clotting. 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
== END 2023-07-12 09:46 | disposition home or self-care (01) ==
LOC: HO.ACS 09:30
PROVIDERS: PCP Student in an Organized Health Care Education/Training Program; Visit Provider Internal Medicine
DX: Z79.01 Long term (current) use of anticoagulants (principal)

== ENCOUNTER → 2023-07-12 09:30 | Outpatient (BNVA) | payer OTHER, SELFPAY | PROVIDERS: PCP Student in an Organized Health Care Education/Training Program; Visit Provider Internal Medicine | DX: Z95.2 Presence of prosthetic heart valve (principal); Z79.01 Long term (current) use of anticoagulants; Z51.81 Encounter for therapeutic drug level monitoring | CPT/HCPCS: 85610; 99211 ==

== ENCOUNTER 2023-08-06 09:30 | Outpatient (AMB) | payer OTHER, SELFPAY ==
--- NOTE | 2023-08-06 09:38 | MHC.OFFVISCO ---
Intake Intake Visit Reasons: Anticoagulation Allergies No Known Allergies Allergy (Verified 08/06/23 09:34) Medication List - Last Reconciled 08/06/23 by Alba Farris RN amoxicillin 2,000 mg PO ONCE blood sugar diagnostic As directed cyanocobalamin (vitamin B-12) PO DAILY dulaglutide (Trulicity) 1.5 mg subcut QWEEK metformin 500 mg PO BID metoprolol succinate ER 50 mg PO DAILY psyllium 1 tbsp PO BID 90 days sennosides-docusate sodium 8.6-50 mg (Senna Plus) 1 tab-cap PO BEDTIME 90 days simvastatin 40 mg PO BEDTIME tadalafil 10 mg PO DAILY warfarin mg See Protocol PO Nursing Note INR: 3.3- in therapeutic range Medications and supplements reviewed- pt cont on vit B12 without niacin No changes in health, diet, medications, or supplements, Denies any signs and symptoms of bleeding or bruising or clotting. Bleeding, bruising, clotting discussed Nutritional guidance given Dose: 8mg x 7 F/U INR: 4 weeks Patient verbalizes understanding of instructions given Anti-Coag Initial Assessment Social Hx alcohol intake: former Alcohol intake frequency: holidays/special occasions only Coding Level of Care Code Est Patient Level 1 Diagnoses Current use of anticoagulant therapy Z79.01 Results AMB INR Fingerstick AMB INR Fingerstick 3.3 Last Edit by Alba Farris RN on 08/06/23 09:39 Assessment & Plan Assessment & Plan (1) Current use of anticoagulant therapy: Code(s): Z79.01 - longterm (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
[2023-08-06 09:39] LABS: Prothrombin Time Whole Bld POC 39.6 sec (11.1-13.5); ~PT, ~INR - Anti Coag Clinic 3.3 (0.9-1.1)
== END 2023-08-06 09:43 | disposition home or self-care (01) ==
LOC: HO.ACS 09:31
PROVIDERS: PCP Student in an Organized Health Care Education/Training Program; Visit Provider Internal Medicine
DX: Z79.01 Long term (current) use of anticoagulants (principal)

== ENCOUNTER → 2023-08-06 09:30 | Outpatient (BNVA) | payer OTHER, SELFPAY | PROVIDERS: PCP Student in an Organized Health Care Education/Training Program; Visit Provider Internal Medicine | DX: Z95.2 Presence of prosthetic heart valve (principal); Z79.01 Long term (current) use of anticoagulants; Z51.81 Encounter for therapeutic drug level monitoring | CPT/HCPCS: 85610; 99211 ==

== ENCOUNTER 2023-09-05 09:35 | Outpatient (AMB) | payer OTHER, SELFPAY ==
--- NOTE | 2023-09-05 09:39 | MHC.OFFVISCO ---
Intake Intake Visit Reasons: Anticoagulation Allergies No Known Allergies Allergy (Verified 09/05/23 09:35) Nursing Note INR: 3.5- in therapeutic range of 2.5-3.5 Medications and supplements reviewed No changes in health, diet, medications, or supplements, Denies any signs and symptoms of bleeding or bruising or clotting. Bleeding, bruising, clotting discussed Nutritional guidance given - eat a green today Dose: 8mg x 7 F/U INR: pt req 4 weeks Patient verbalizes understanding of instructions given Anti-Coag Initial Assessment Social Hx alcohol intake: former Alcohol intake frequency: holidays/special occasions only Coding Level of Care Code Est Patient Level 1 Diagnoses Current use of anticoagulant therapy Z79.01 Assessment & Plan Assessment & Plan (1) Current use of anticoagulant therapy: Code(s): Z79.01 - senior care (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
[2023-09-05 09:40] LABS: ~PT, ~INR - Anti Coag Clinic 3.5 (0.9-1.1)
== END 2023-09-05 09:43 | disposition home or self-care (01) ==
LOC: HO.ACS 09:35
PROVIDERS: PCP Student in an Organized Health Care Education/Training Program; Visit Provider Internal Medicine
DX: Z79.01 Long term (current) use of anticoagulants (principal)

== ENCOUNTER → 2023-09-05 09:35 | Outpatient (BNVA) | payer OTHER, SELFPAY | PROVIDERS: PCP Student in an Organized Health Care Education/Training Program; Visit Provider Internal Medicine | DX: Z95.2 Presence of prosthetic heart valve (principal); Z79.01 Long term (current) use of anticoagulants; Z51.81 Encounter for therapeutic drug level monitoring | CPT/HCPCS: 85610; 99211 ==

== ENCOUNTER 2023-10-03 09:20 | Outpatient (AMB) | payer OTHER, SELFPAY ==
--- NOTE | 2023-10-03 09:40 | MHC.OFFVISCO ---
Intake Intake Visit Reasons: Anticoagulation Allergies No Known Allergies Allergy (Verified 10/03/23 09:37) Medication List - Last Reconciled 10/03/23 by Alba Farris RN amoxicillin 2,000 mg PO ONCE blood sugar diagnostic As directed cyanocobalamin (vitamin B-12) PO DAILY dulaglutide (Trulicity) 1.5 mg subcut QWEEK metformin 500 mg PO BID metoprolol succinate ER 50 mg PO DAILY psyllium 1 tbsp PO BID 90 days sennosides-docusate sodium 8.6-50 mg (Senna Plus) 1 tab-cap PO BEDTIME 90 days simvastatin 40 mg PO BEDTIME tadalafil 10 mg PO DAILY warfarin mg See Protocol PO Nursing Note INR 2.0-?? out of therapeutic range of 2.5-3.5, unsure if missed a dose Medications and supplements reviewed Patient status: no c.o Medications or supplements: no changes Diet: ate a lot of cabbage Denies any signs and symptoms of bleeding or clotting or unusual bruising Bleeding, bruising, clotting discussed Nutritional guidance given: no greens for 3 days, eat reds to raise inr Dose: 12mg today then 8mg x 7 F/U INR Date : sun10/08/23?? Patient verbalizing understanding of instructions given. pcp office/[facility] called with low inr/dosing and f/u appt, ? lyndsaynox, spoke to henry at [phone] awaiting call back to report - return call from Robi, she will report inr/dosing and f/u appt to pcp. ? anthony Anti-Coag Initial Assessment Social Hx alcohol intake: former Alcohol intake frequency: holidays/special occasions only Coding Level of Care Code Est Patient Level 1
[2023-10-03 09:42] LABS: Prothrombin Time Whole Bld POC 24.4 sec (11.1-13.5)
== END 2023-10-03 10:15 | disposition home or self-care (01) ==
LOC: HO.ACS 09:20
PROVIDERS: PCP Student in an Organized Health Care Education/Training Program; Visit Provider Internal Medicine
DX: Z79.01 Long term (current) use of anticoagulants (principal)

== ENCOUNTER → 2023-10-03 09:20 | Outpatient (BNVA) | payer OTHER, SELFPAY | PROVIDERS: PCP Student in an Organized Health Care Education/Training Program; Visit Provider Internal Medicine | DX: Z95.2 Presence of prosthetic heart valve (principal); Z79.01 Long term (current) use of anticoagulants; Z51.81 Encounter for therapeutic drug level monitoring | CPT/HCPCS: 85610; 99211 ==

== ENCOUNTER 2023-10-08 09:14 | Outpatient (AMB) | payer OTHER, SELFPAY ==
[2023-10-08 09:21] LABS: Prothrombin Time Whole Bld POC 38.5 sec (11.1-13.5); ~PT, ~INR - Anti Coag Clinic 3.2 (0.9-1.1)
--- NOTE | 2023-10-08 09:22 | MHC.OFFVISCO ---
Intake Intake Visit Reasons: Anticoagulation Allergies No Known Allergies Allergy (Verified 10/08/23 09:16) Medication List - Last Reconciled 10/08/23 by Jacqui Mendoza RN amoxicillin 2,000 mg PO ONCE blood sugar diagnostic As directed cyanocobalamin (vitamin B-12) PO DAILY dulaglutide (Trulicity) 1.5 mg subcut QWEEK metformin 500 mg PO BID metoprolol succinate ER 50 mg PO DAILY psyllium 1 tbsp PO BID 90 days sennosides-docusate sodium 8.6-50 mg (Senna Plus) 1 tab-cap PO BEDTIME 90 days simvastatin 40 mg PO BEDTIME tadalafil 10 mg PO DAILY warfarin mg See Protocol PO Nursing Note INR: 3.2 in therapeutic range Medications and supplements reviewed No changes in health, diet, medications, or supplements, Denies any signs and symptoms of bleeding or bruising or clotting. Bleeding, bruising, clotting discussed Nutritional guidance given Dose:SAME F/U INR: 4WEEKS atient verbalizes understanding of instructions given Anti-Coag Initial Assessment Social Hx alcohol intake: former Alcohol intake frequency: holidays/special occasions only Coding Level of Care Code Est Patient Level 1
== END 2023-10-08 09:24 | disposition home or self-care (01) ==
LOC: HO.ACS 09:14
PROVIDERS: PCP Student in an Organized Health Care Education/Training Program; Visit Provider Internal Medicine
DX: Z79.01 Long term (current) use of anticoagulants (principal)

== ENCOUNTER → 2023-10-08 09:14 | Outpatient (BNVA) | payer OTHER, SELFPAY | PROVIDERS: PCP Student in an Organized Health Care Education/Training Program; Visit Provider Internal Medicine | DX: Z95.2 Presence of prosthetic heart valve (principal); Z79.01 Long term (current) use of anticoagulants; Z51.81 Encounter for therapeutic drug level monitoring | CPT/HCPCS: 85610; 99211 ==

== ENCOUNTER 2023-10-25 09:45 | Outpatient (AMB) | payer OTHER, SELFPAY ==
--- NOTE | 2023-10-25 09:52 | MHC.OFFVIS ---
Vital Signs 10/25/23 09:54 Height 6 ft Weight 198 lb BMI 26.9 BP 97/70 Blood Pressure Location Lt brachial Position Sitting Pulse 82 Intake Visit Reasons: 6 mnth follow up Intake Note: Patient 6 month follow up for Alcoholic Cirrhosis of liver and US results. Patient cc: constipation and denies any other GI issues. Thread Clipper Required: No Accompanied by: Self / Same As Patient Allergies No Known Allergies Allergy (Verified 01/02/24 09:37) Medication List - Last Reconciled 10/25/23 by Gary Soliman MD blood sugar diagnostic As directed cyanocobalamin (vitamin B-12) PO DAILY dulaglutide (Trulicity) 1.5 mg subcut QWEEK metformin 500 mg PO BID metoprolol succinate ER 50 mg PO DAILY psyllium husk (with sugar) 3.4 gram/7 gram (Daily Fiber (psyllium-sucrose)) 1 tsp PO BID 90 days sennosides-docusate sodium 8.6-50 mg (Senna Plus) 1 tab-cap PO BEDTIME 90 days simvastatin 40 mg PO BEDTIME tadalafil 10 mg PO DAILY warfarin mg See Protocol PO HPI HPI 6 mnth follow up: Details: GI Clinic visit for this 48 YM for FU of alcoholic cirrhosis and chronic hepatitis-C - no viral load detected in 06/2018 and Nov, 2019. ? CHRONIC ILLNESSES:?type II diabetes, S/P AVR (aortic valve replacement) on longwall foreman anticoagulation with warfarin, Hepatitis C virus infection, unspecified chronicity ?[facility] [facility] [place] ? 11/17/19 normal CBC with platelet count of 168, INR 2.1, normal LFTs, albumin 4.9. ? Liver fibrosis score of 0.69, liver fibrosis stage F3, necroinflammatory score 0.13 ?IMAGING STUDIES: 11/2022 ABD US SHOWED: Sonographic appearance suggests mild hepatic steatosis. No focal liver lesions seen. ? Borderline splenomegaly. 06/03/21 05/18/23 ABD US WITH ELASTOGRAPHY SHOWED: 1. Hepatomegaly with increased echogenicity consistent with fatty infiltration/hepatocellular disease of other etiology. 2. Liver elastography: Measurements are suggestive of compensated advanced chronic liver disease but need further test for confirmation. ABD US SHOWED: Normal-appearing liver. Echogenic appearing pancreas questionable for fatty infiltration. Right renal cysts and question small right renal stone. 12/08/[address] scan showed: ? IMPRESSION: ? 1. There is hepatic steatosis. ? 2. Previously identified of enhancing right hepatic lobe lesions are now not demonstrated with certainty. No new mass or biliary dilatation is seen. ? 3. Multiple bilateral renal cysts are redemonstrated, consistent with prior ultrasound findings. ? 01/[address] scan showed: ? IMPRESSION: Three peripheral arterial enhancing lesions in the posterior segment of the right lobe of the liver. One of these lesions demonstrates washout. The larger 6 mm lesion is similar to most recent exam ? July 2018 and the 2 adjacent more lateral smaller lesions are similar to earliest CT January 2018. Continued attention on follow-up recommended. Slightly enlarged spleen. Question small stable left ? adrenal nodule. Stable bilateral renal cysts. ENDOSCOPIC STUDIES:? 09/06/22 EGD AND COLONOSCOPY SHOWED: Endoscopy Findings: ESOPHAGUS: GE junction at 36 cms, small hiatal hernia 36 to 38 cms. No varices, esophagitis or Saleem's. STOMACH: Mild portal gastropathy and a few 5-8 mm benign appearing polyps in the body of the stomach - biopsied. Mild gastric erythema with a few superficial erosions - biopsies were obtained. Grade 2 flap valve and no gastric varices on retroflexed examination of the cardia. Colonoscopy Findings: One medium sized hyperplastic polyp removed Moderate diverticulosis seen in the sigmoid colon Moderate hemorrhoids on retroflexed exam. Plan:? Patient has an appointment on 10/19/22 in the GI Clinic with Gary Soliman M.D.. Repeat Colonoscopy interval based on path results - in 3-5 years if polyps are adenomatous and 10 years if polyps are hyperplastic. TODAY'S VISIT Complains of ch constipation BM once every 3-4 days with hard stools Taking Senna 1 tab three nights a week and not working very well PAST VISITS: Can wake up with a little nausea sometimes Requesting a refill for Senna. Can have hard stools one week and diarrhea the following week - advised to increase the fibre supplement to twice a day. EGD and colon results reviewed with the patient. Denies having any problems after endoscopic procedures Complains of intermittent LLQ cramps associated with constipation - advised to start a fibre supplement PAST VISIT: Had a new PCP in Dec (Monalisa Dejesus NP) and practice was closed. Now she has opened a new practice in [place] on May 12 and he will set up an appt to see her. Warfarin is managed by [facility] and they do not give prescriptions. Hot Room Attendant is Dr Rojas in [place]. Switched to Trulicity and noted abdominal pain and decreased appetite. Constipation is better - has a BM every 2 days. Complains of constipation - has a BM every 4 days with hard stools. ? Doing fine without symptoms - denies fatigue, abdominal distension, black stools or rectal bleeding ? Wt has been stable. ? Abd US results were reviewed with the patient. Taking warfarin 10 mg daily and 5 mg 1 day a week. Interested in establishing care with the Antico[place] clinic at [facility] [place]. Due for FU labs - [place] [facility] [place] ? Treated with Harvoni x 12 weeks for Hepatitis C in 2017 - follow-up hepatitis-C viral load was negative . ? Denies fatigue, jaundice, abdominal distension. ? Denies abdominal pain, dysphagia, heartburn, nausea or vomiting, change in appetite or weight. ? Patient denies change in bowel habits, black stools or rectal bleeding ? Positive family history of colon cancer in his paternal grandfather in his late 70's/early 80's [facility] Medical History (Updated 02/28/24 @ 15:54 by Gary Soliman MD) Aortic valve insufficiency Mitral valve stenosis, non-rheumatic History of intravenous drug abuse On beta andreas at home Hepatitis C On anticoagulant therapy Cirrhosis Hepatitis C virus infection Surgical History Hx of colonoscopy History of esophagogastroduodenoscopy (EGD) H/O skin graft History of liver biopsy H/O aortic valve replacement Family History Father Alive and well Mother Hx of type 2 diabetes mellitus Social History Alcohol intake: former Year quit: 2018 Substance Use Type: Marijuana Review of Systems Const All systems reviewed & are unremarkable except as noted in HPI and below Physical Exam Vital Signs: Last Vital Signs Pulse 82 10/25/23 09:54 BP 97/70 10/25/23 09:54 BMI result Body Mass Index 26.9 Const General: healthy appearing and no acute distress Nutritional Appearance: overweight Orientation/consciousness: patient oriented x3 Limitations: no limitations HEENT Head: Yes normal to inspection Ears: hearing grossly normal bilaterally Eyes Sclerae: sclerae normal Pupils: Equal, round and reactive pupils present Neck Neck: Yes normal visual inspection Chest Chest palpation & inspection: normal inspection of the chest Resp Effort & Inspection: normal respiratory effort Auscultation: clear to auscultation bilaterally Cardio Palpation: normal PMI Rate: regular rate Rhythm: regular rhythm Heart sounds: S1 normal heart sound present, S2 normal heart sound present and no murmurs GI Palpation (GI): Soft to palpation, nontender and No hepatosplenomegaly present Auscultation: normal bowel sounds Rectal Exam - Male: Yes deferred Skin General skin exam: no rashes or lesions noted Neuro General: patient oriented x3, gait normal and moves all extremities Cranial nerves: Yes Equal, round and reactive pupils present Psych Appearance: grossly normal Mental Status: mental status grossly normal Assessment & Plan Assessment & Plan (1) Alcoholic cirrhosis of liver without ascites: Code(s): K70.30 - Alcoholic cirrhosis of liver without ascites Category: Medical (2) Family history of colon cancer: Comment: Paternal grandfather had colon cancer in his late 70s/early 80s. Patient was advised to start colon cancer screening with colonoscopy at age 45-50 years. 09/02 One medium sized hyperplastic polyp removed during colonoscopy Repeat colonoscopy advised in 5 years due to positive family history (due 08/2027). Code(s): Z80.0 - Family history of malignant neoplasm of digestive organs Category: Medical (3) Chronic constipation: Code(s): K59.09 - Other constipation Category: Medical Plan 48 YM with type II diabetes, S/P AVR (aortic valve replacement) followed in GI for compensated cirrhosis likely due to past hepatitis C which was treated in 2016. Patient denies regular EtOH use. Liver fibrosis test showed F3 fibrosis. MELD score is 18 due to INR of 2.7 (pt is on warfarin for aortic valve replacement) Abdominal CT scan in January 2019 showed three small hepatic lesions which were stable. 12/01 no hepatic lesions noted on repeat CT scan. Course and prognosis of cirrhosis was discussed with the patient during his past visit and he was given patient handout from up-to-date on cirrhosis. Pt states he had Hep B immunization several yrs ago. Recent Hep B serologies showed negative Hep B surface and core ab. 08/2022 EGD and colonoscopy were performed and findings as noted above. 04/26/23 Can have hard stools one week and diarrhea the following week - advised to increase the fibre supplement to twice a day. 10/25/23 Complains of ch constipation BM once every 3-4 days with hard stools Taking Senna 1 tab three nights a week and not working very well Pt advised to increase Senna to 2 tabs at bedtime for constipation FU in 6 months Orders: Orders Vitamin D 25-OH Total 10/25/23 K70.30 - Alcoholic cirrhosis of liver without ascites Zinc 10/25/23 K70.30 - Alcoholic cirrhosis of liver without ascites US abdomen limited 10/25/23 K70.30 - Alcoholic cirrhosis of liver without ascites Complete Blood Count Auto Diff 10/25/23 K70.30 - Alcoholic cirrhosis of liver without ascites Comprehensive Met. Panel 10/25/23 K70.30 - Alcoholic cirrhosis of liver without ascites Vitamin B12 and Folate 10/25/23 K70.30 - Alcoholic cirrhosis of liver without ascites Prothrombin Time INR 10/25/23 K70.30 - Alcoholic cirrhosis of liver without ascites Medications: Changed From sennosides-docusate sodium 8.6-50 mg 1 tab-cap PO BEDTIME 90 days 90 caps 1RF K59.09 - Other constipation To sennosides-docusate sodium 8.6-50 mg (Senna Plus) 2 tab-caps (2 x 8.6-50 mg) PO BEDTIME 180 caps 1RF 90 days K59.09 - Other constipation
[2023-10-25 09:54] VITALS: BP 97/70; PULSE 82; BMI 26.9
== END 2023-10-25 10:40 | disposition home or self-care (01) ==
PROVIDERS: PCP Student in an Organized Health Care Education/Training Program; Visit Provider Internal Medicine Gastroenterology
DX: K70.30 Alcoholic cirrhosis of liver without ascites (principal); Z80.0 Family history of malignant neoplasm of digestive organs; K59.09 Other constipation
CPT/HCPCS: 99499

== ENCOUNTER → 2023-10-25 09:45 | Outpatient (BNVA) | payer OTHER, SELFPAY | PROVIDERS: PCP Student in an Organized Health Care Education/Training Program; Visit Provider Internal Medicine Gastroenterology ==

== ENCOUNTER 2023-11-06 09:19 | Outpatient (AMB) | payer OTHER, SELFPAY ==
[2023-11-06 09:44] LABS: Prothrombin Time Whole Bld POC 47.3 sec (11.1-13.5); ~PT, ~INR - Anti Coag Clinic 3.9 (0.9-1.1)
--- NOTE | 2023-11-06 09:50 | MHC.OFFVISCO ---
Intake Intake Visit Reasons: Anticoagulation Allergies No Known Allergies Allergy (Verified 11/06/23 09:29) Medication List - Last Reconciled 11/06/23 by Hawa Cullen RN blood sugar diagnostic As directed cyanocobalamin (vitamin B-12) PO DAILY dulaglutide (Trulicity) 1.5 mg subcut QWEEK metformin 500 mg PO BID metoprolol succinate ER 50 mg PO DAILY psyllium husk (with sugar) 3.4 gram/7 gram (Daily Fiber (psyllium-sucrose)) 1 tsp PO BID 90 days sennosides-docusate sodium 8.6-50 mg (Senna Plus) 2 tab-caps (2 x 8.6-50 mg) PO BEDTIME 90 days simvastatin 40 mg PO BEDTIME tadalafil 10 mg PO DAILY warfarin mg See Protocol PO Nursing Note Amb to [facility] feeling well Medications and supplements reviewed, pt sts he no longer drinks alcohol just not worth it No changes in health, diet, medications, or supplements Denies any unusual signs and symptoms of bruising, bleeding Denies any new Chest pain, SOB, or clotting INR: 3.9 above range (2.5-3.5) Nutritional guidance given: have a good green today then balance greens and reds in diet Dose: decrease dose today 6mg then resume usual dosing; 8mg daily F/U INR: 2 weeks Patient verbalizes understanding of instructions given with accurate read back/ teach back of dosing Anti-Coag Initial Assessment Social Hx alcohol intake: former Alcohol intake frequency: holidays/special occasions only Questionnaires HAS-BLED Does the patient had uncontrolled Hypertension?: No Does the patient have renal disease?: No Does the patient have liver disease?: Yes Does the patient have a history of stroke?: No Has the patient had major bleeding or predisposition to bleeding?: No Does the patient have labile INRs?: No Is the patient over 65 years of age?: No Is the patient on medications that gives them a predisposition to bleeding?: Yes Does the patient use alcohol?: No HAS-BLED Score: 2 CHADSVASC Age: <65 Gender: Male Does the patient have a history of CHF?: No Does the patient have a history of Stroke/TIA/Thromboembolism?: No Does the patient have a history of Vascular Disease (prior SD, PAD or aortic plaque)?: Yes Does the patient have a history of Diabetes?: Yes CHADS VACS Score: 2 Shane Prediction Score Rsk VTE Active Cancer: No Previous VTE, excluding superficial vein thrombosis: No Reduced mobility: No Already known Thrombophilic Condition: Yes With-in last month Trauma and/or Surgery: No Elderly 70 year or older: No Heart and/or Respiratory Failure: No Acute Myocardial infarction and/or Ischemic Stroke: No Acute Infection and/or Rheumatologic Disorder: No Obesity (BMI 30 or greater): No Ongoing Hormonal Treatment: No Score: 3 Shane Score less than 4; Low Risk of VTE Shane Score 4 or greater; High Risk of VTE Coding Level of Care Code Est Patient Level 1 Diagnoses Current use of anticoagulant therapy Z79.01 Time Spent (min) 15 Results AMB INR Fingerstick AMB INR Fingerstick 3.9 Last Edit by Hawa Cullen RN on 11/06/23 09:47 interface failure AMB INR Fingerstick AMB INR Fingerstick 3.9 Last Edit by Hawa Cullen RN on 11/06/23 09:48 interface failure Assessment & Plan Assessment & Plan (1) Current use of anticoagulant therapy: Code(s): 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
== END 2023-11-06 11:21 | disposition home or self-care (01) ==
LOC: HO.ACS 09:19
PROVIDERS: PCP Student in an Organized Health Care Education/Training Program; Visit Provider Internal Medicine
DX: Z79.01 Long term (current) use of anticoagulants (principal)

== ENCOUNTER → 2023-11-06 09:19 | Outpatient (BNVA) | payer OTHER, SELFPAY | PROVIDERS: PCP Student in an Organized Health Care Education/Training Program; Visit Provider Internal Medicine | DX: Z95.2 Presence of prosthetic heart valve (principal); Z79.01 Long term (current) use of anticoagulants; Z51.81 Encounter for therapeutic drug level monitoring | CPT/HCPCS: 85610; 99211 ==

== ENCOUNTER 2023-11-13 08:48 | Outpatient (REF) | payer OTHER, SELFPAY | END 2023-11-13 08:49 | disposition home or self-care (01) | LOC: HO.HMGCX 08:48 | PROVIDERS: PCP Student in an Organized Health Care Education/Training Program; Visit Provider Internal Medicine Gastroenterology | DX: K70.30 Alcoholic cirrhosis of liver without ascites (principal) | CPT/HCPCS: 76705 ==

== ENCOUNTER 2023-11-15 09:19 | Outpatient (AMB) | payer OTHER, SELFPAY ==
--- NOTE | 2023-11-15 09:54 | MHC.OFFVISCO ---
Intake Intake Visit Reasons: Anticoagulation Allergies No Known Allergies Allergy (Verified 11/15/23 09:43) Medication List - Last Reconciled 11/15/23 by Tianna Barry RN blood sugar diagnostic As directed cyanocobalamin (vitamin B-12) PO DAILY dulaglutide (Trulicity) 1.5 mg subcut QWEEK metformin 500 mg PO BID metoprolol succinate ER 50 mg PO DAILY psyllium husk (with sugar) 3.4 gram/7 gram (Daily Fiber (psyllium-sucrose)) 1 tsp PO BID 90 days sennosides-docusate sodium 8.6-50 mg (Senna Plus) 2 tab-caps (2 x 8.6-50 mg) PO BEDTIME 90 days simvastatin 40 mg PO BEDTIME tadalafil 10 mg PO DAILY warfarin mg See Protocol PO Nursing Note NO CP,SOB,DIET/MED CHANGES,FALLS OR SX OF BLEEDING. CONTINUE 8MGM DAILY AND FOLLOW-UP IN 4 WEEKS. GOOD UNDERSTANDING OF DOSING INSTR. Anti-Coag Initial Assessment Social Hx alcohol intake: former Alcohol intake frequency: holidays/special occasions only Coding Level of Care Code Est Patient Level 1 Diagnoses Current use of anticoagulant therapy Z79.01 Results AMB INR Fingerstick AMB INR Fingerstick 3.6 Last Edit by Tianna Barry RN on 11/15/23 09:51 Assessment & Plan Assessment & Plan (1) Current use of anticoagulant therapy: Code(s): Z79.01 - USP (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
== END 2023-11-15 09:56 | disposition home or self-care (01) ==
LOC: HO.ACS 09:19
PROVIDERS: PCP Student in an Organized Health Care Education/Training Program; Visit Provider Internal Medicine
DX: Z79.01 Long term (current) use of anticoagulants (principal)

== ENCOUNTER → 2023-11-15 09:19 | Outpatient (BNVA) | payer OTHER, SELFPAY | PROVIDERS: PCP Student in an Organized Health Care Education/Training Program; Visit Provider Internal Medicine | DX: Z95.2 Presence of prosthetic heart valve (principal); Z79.01 Long term (current) use of anticoagulants; Z51.81 Encounter for therapeutic drug level monitoring | CPT/HCPCS: 85610; 99211 ==

== ENCOUNTER 2023-12-18 09:19 | Outpatient (AMB) | payer OTHER, SELFPAY ==
[2023-12-18 09:44] LABS: ~PT, ~INR - Anti Coag Clinic 3.5 (0.9-1.1)
--- NOTE | 2023-12-18 09:48 | MHC.OFFVISCO ---
Intake Intake Visit Reasons: Anticoagulation Allergies No Known Allergies Allergy (Verified 12/18/23 09:33) Medication List - Last Reconciled 12/18/23 by Hawa Diaz RN blood sugar diagnostic As directed cyanocobalamin (vitamin B-12) PO DAILY dulaglutide (Trulicity) 1.5 mg subcut QWEEK hydroxyzine HCl 25 mg PO TID metformin 500 mg PO BID metoprolol succinate ER 50 mg PO DAILY psyllium husk (with sugar) 3.4 gram/7 gram (Daily Fiber (psyllium-sucrose)) 1 tsp PO BID 90 days sennosides-docusate sodium 8.6-50 mg (Senna Plus) 2 tab-caps (2 x 8.6-50 mg) PO BEDTIME 90 days sertraline 50 mg PO DAILY simvastatin 40 mg PO BEDTIME tadalafil 10 mg PO DAILY trazodone 150 mg PO BEDTIME warfarin mg See Protocol PO Nursing Note INR: 3.5 in therapeutic range Medications and supplements reviewed new meds reviewed and pt states started 1 month ago reviewed with pt how 2 of the new meds can raise the INR No changes in health, diet, medications, or supplements, Denies any signs and symptoms of bleeding or bruising or clotting. Bleeding, bruising, clotting discussed Nutritional guidance given Dose: 8mg daily F/U INR: 2 weeks Patient verbalizes understanding of instructions given Anti-Coag Initial Assessment Social Hx alcohol intake: former Alcohol intake frequency: holidays/special occasions only Coding Level of Care Code Est Patient Level 1 Diagnoses Current use of anticoagulant therapy Z79.01 Assessment & Plan Assessment & Plan (1) Current use of anticoagulant therapy: Code(s): Z79.01 - manager terminal (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
== END 2023-12-18 09:52 | disposition home or self-care (01) ==
LOC: HO.ACS 09:19
PROVIDERS: PCP Student in an Organized Health Care Education/Training Program; Visit Provider Internal Medicine
DX: Z79.01 Long term (current) use of anticoagulants (principal)

== ENCOUNTER → 2023-12-18 09:19 | Outpatient (BNVA) | payer OTHER, SELFPAY | PROVIDERS: PCP Student in an Organized Health Care Education/Training Program; Visit Provider Internal Medicine | DX: Z95.2 Presence of prosthetic heart valve (principal); Z79.01 Long term (current) use of anticoagulants; Z51.81 Encounter for therapeutic drug level monitoring | CPT/HCPCS: 85610; 99211 ==

== ENCOUNTER 2024-01-02 09:21 | Outpatient (AMB) | payer OTHER, SELFPAY ==
[2024-01-02 09:40] LABS: Prothrombin Time Whole Bld POC 36.4 sec (11.1-13.5)
--- NOTE | 2024-01-02 09:44 | MHC.OFFVISCO ---
Intake Intake Visit Reasons: Anticoagulation Allergies No Known Allergies Allergy (Verified 01/02/24 09:37) Medication List - Last Reconciled 01/02/24 by Tianna Barry RN blood sugar diagnostic As directed cyanocobalamin (vitamin B-12) PO DAILY dulaglutide (Trulicity) 1.5 mg subcut QWEEK hydroxyzine HCl 25 mg PO TID metformin 500 mg PO BID metoprolol succinate ER 50 mg PO DAILY psyllium husk (with sugar) 3.4 gram/7 gram (Daily Fiber (psyllium-sucrose)) 1 tsp PO BID 90 days sennosides-docusate sodium 8.6-50 mg (Senna Plus) 2 tab-caps (2 x 8.6-50 mg) PO BEDTIME 90 days sertraline 50 mg PO DAILY simvastatin 40 mg PO BEDTIME tadalafil 10 mg PO DAILY trazodone 150 mg PO BEDTIME warfarin mg See Protocol PO Nursing Note NO CP,SOB,DIET/MED CHANGES,FALLS OR SX OF BLEEDING. CONTINUE 8MGM DAILY AND FOLLOW-UP IN 4 WEEKS. GOOD UNDERSTANDING OF DOSING INSTR. Anti-Coag Initial Assessment Social Hx alcohol intake: former Alcohol intake frequency: holidays/special occasions only Coding Level of Care Code Est Patient Level 1 Diagnoses Current use of anticoagulant therapy Z79.01 Assessment & Plan Assessment & Plan (1) Current use of anticoagulant therapy: Code(s): Z79.01 - long-term (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
== END 2024-01-02 09:45 | disposition home or self-care (01) ==
LOC: HO.ACS 09:21
PROVIDERS: PCP Student in an Organized Health Care Education/Training Program; Visit Provider Internal Medicine
DX: Z79.01 Long term (current) use of anticoagulants (principal)

== ENCOUNTER → 2024-01-02 09:21 | Outpatient (BNVA) | payer OTHER, SELFPAY | PROVIDERS: PCP Student in an Organized Health Care Education/Training Program; Visit Provider Internal Medicine | DX: Z95.2 Presence of prosthetic heart valve (principal); Z79.01 Long term (current) use of anticoagulants; Z51.81 Encounter for therapeutic drug level monitoring | CPT/HCPCS: 85610; 99211 ==

== ENCOUNTER 2024-02-01 09:30 | Outpatient (AMB) | payer OTHER, SELFPAY ==
[2024-02-01 09:42] LABS: Prothrombin Time Whole Bld POC 38.7 sec (11.1-13.5); ~PT, ~INR - Anti Coag Clinic 3.2 (0.9-1.1)
--- NOTE | 2024-02-01 09:46 | MHC.OFFVISCO ---
Intake Intake Visit Reasons: Anticoagulation Allergies No Known Allergies Allergy (Verified 01/02/24 09:37) Nursing Note INR: 3.2 in therapeutic range Medications and supplements reviewed No changes in health, diet, medications, or supplements, Denies any signs and symptoms of bleeding or bruising or clotting. Bleeding, bruising, clotting discussed Nutritional guidance given - REVIEW FOOD LIST WEEKLY Dose: 8MG DAILY F/U INR: 4 WEEKS Patient verbalizes understanding of instructions given Anti-Coag Initial Assessment Social Hx alcohol intake: former Alcohol intake frequency: holidays/special occasions only Coding Level of Care Code Est Patient Level 1 Diagnoses Current use of anticoagulant therapy Z79.01 Assessment & Plan Assessment & Plan (1) Current use of anticoagulant therapy: Code(s): Z79.01 - nursing home (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
== END 2024-02-01 09:48 | disposition home or self-care (01) ==
LOC: HO.ACS 09:30
PROVIDERS: PCP Student in an Organized Health Care Education/Training Program; Visit Provider Internal Medicine
DX: Z79.01 Long term (current) use of anticoagulants (principal)

== ENCOUNTER → 2024-02-01 09:30 | Outpatient (BNVA) | payer OTHER, SELFPAY | PROVIDERS: PCP Student in an Organized Health Care Education/Training Program; Visit Provider Internal Medicine | DX: Z95.2 Presence of prosthetic heart valve (principal); Z79.01 Long term (current) use of anticoagulants; Z51.81 Encounter for therapeutic drug level monitoring | CPT/HCPCS: 85610; 99211 ==

== ENCOUNTER 2024-02-29 09:28 | Outpatient (AMB) | payer OTHER, SELFPAY ==
[2024-02-29 09:44] LABS: Prothrombin Time Whole Bld POC 38.4 sec (11.1-13.5); ~PT, ~INR - Anti Coag Clinic 3.2 (0.9-1.1)
--- NOTE | 2024-02-29 09:46 | MHC.OFFVISCO ---
Intake Intake Visit Reasons: Anticoagulation Allergies No Known Allergies Allergy (Verified 02/29/24 09:38) Medication List - Last Reconciled 02/29/24 by Hawa Diaz RN blood sugar diagnostic As directed cyanocobalamin (vitamin B-12) PO DAILY dulaglutide (Trulicity) 1.5 mg subcut QWEEK hydroxyzine HCl 25 mg PO TID metformin 500 mg PO BID metoprolol succinate ER 50 mg PO DAILY omeprazole magnesium 20 mg PO DAILY 30 days psyllium husk (with sugar) 3.4 gram/7 gram (Daily Fiber (psyllium-sucrose)) 1 tsp PO BID 90 days sennosides-docusate sodium 8.6-50 mg (Senna Plus) 2 tab-caps (2 x 8.6-50 mg) PO BEDTIME 90 days sertraline 50 mg PO DAILY simvastatin 40 mg PO BEDTIME tadalafil 10 mg PO DAILY trazodone 150 mg PO BEDTIME warfarin mg See Protocol PO Nursing Note INR: 3.2 in therapeutic range of 2.5-3.5 Medications and supplements reviewed: no changes No changes in health, diet, medications, or supplements, Denies any signs and symptoms of bleeding or bruising or clotting. 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
== END 2024-02-29 09:48 | disposition home or self-care (01) ==
LOC: HO.ACS 09:28
PROVIDERS: PCP Student in an Organized Health Care Education/Training Program; Visit Provider Internal Medicine
DX: Z79.01 Long term (current) use of anticoagulants (principal)

== ENCOUNTER → 2024-02-29 09:28 | Outpatient (BNVA) | payer OTHER, SELFPAY | PROVIDERS: PCP Student in an Organized Health Care Education/Training Program; Visit Provider Internal Medicine | DX: I35.1 Nonrheumatic aortic (valve) insufficiency (principal); Z95.2 Presence of prosthetic heart valve; Z79.01 Long term (current) use of anticoagulants; Z51.81 Encounter for therapeutic drug level monitoring | CPT/HCPCS: 85610; 99211 ==

== ENCOUNTER 2024-03-28 09:24 | Outpatient (AMB) | payer OTHER, SELFPAY ==
[2024-03-28 09:33] LABS: Prothrombin Time Whole Bld POC 36.3 sec (11.1-13.5)
--- NOTE | 2024-03-28 09:41 | MHC.OFFVISCO ---
Intake Intake Visit Reasons: Anticoagulation Allergies No Known Allergies Allergy (Verified 03/28/24 09:25) Medication List - Last Reconciled 03/28/24 by Jacqui Mendoza RN blood sugar diagnostic As directed bupropion HCl XL 300 mg PO DAILY buspirone mg PO cyanocobalamin (vitamin B-12) PO DAILY dulaglutide (Trulicity) 1.5 mg subcut QWEEK dulaglutide (Trulicity) mg subcut hydroxyzine HCl 25 mg PO TID metformin 500 mg PO BID metoprolol succinate ER 50 mg PO DAILY omeprazole magnesium 20 mg PO DAILY 30 days psyllium husk (with sugar) 3.4 gram/7 gram (Daily Fiber (psyllium-sucrose)) 1 tsp PO BID 90 days sennosides-docusate sodium 8.6-50 mg (Senna Plus) 2 tabs PO BEDTIME sennosides-docusate sodium 8.6-50 mg (Senna Plus) 2 tab-caps (2 x 8.6-50 mg) PO BEDTIME 90 days sertraline mg PO simvastatin 40 mg PO BEDTIME tadalafil 10 mg PO DAILY trazodone 150 mg PO BEDTIME warfarin mg See Protocol PO Nursing Note INR: 3.0 in therapeutic range Medications and supplements reviewed- prn Zantac 150 mg for heart burn- x 2 weeks- can have delayed onset in raising the INR and explained to pt to increase greens a little, make sure he is moving his bowels regularly, and to discuss with MD Denies any signs and symptoms of bleeding or bruising or clotting. Bleeding, bruising, clotting discussed Nutritional guidance given - increase greens while taking zantac - eat healthier - maybe avoid fried food ,chocolate, coffee, onion garlic for a few days Dose: 8mg daily F/U INR: 1 month per pt request It was explained Zantac can raise the INR and to increase greens while taking - should he take it for more than 2 weeks - he should have INR checked due to risk of bleeding Patient verbalizes understanding of instructions given Anti-Coag Initial Assessment Social Hx alcohol intake: former Alcohol intake frequency: holidays/special occasions only Coding Level of Care Code Est Patient Level 1 Diagnoses Current use of anticoagulant therapy Z79.01 Assessment & Plan Assessment & Plan (1) Current use of anticoagulant therapy: Code(s): Z79.01 - intermediate (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 Medications: New ranitidine HCl PO
== END 2024-03-28 09:50 | disposition home or self-care (01) ==
LOC: HO.ACS 09:24
PROVIDERS: PCP Student in an Organized Health Care Education/Training Program; Visit Provider Internal Medicine
DX: Z79.01 Long term (current) use of anticoagulants (principal)

== ENCOUNTER → 2024-03-28 09:24 | Outpatient (BNVA) | payer OTHER, SELFPAY | PROVIDERS: PCP Student in an Organized Health Care Education/Training Program; Visit Provider Internal Medicine | DX: Z95.2 Presence of prosthetic heart valve (principal); Z51.81 Encounter for therapeutic drug level monitoring; Z79.01 Long term (current) use of anticoagulants | CPT/HCPCS: 85610; 99211 ==

== ENCOUNTER 2024-04-23 08:31 | Outpatient (REF) | payer OTHER, SELFPAY ==
[2024-04-23 08:45] LABS: MANUAL DIFF FLAG NO
[2024-04-23 08:54] LABS: Basophils Absolute Auto 0.1 X10*3/uL (0.0-0.2); Eosinophils Absolute Auto 0.1 X10*3/uL (0.0-0.4); Eosinophils Percent Auto 1.9 % (0-4); Hematocrit 45.2 % (42.0-52.0); Hemoglobin 15.5 g/dl (14.0-18.0); Imm Gran Abs Auto 0.03 X10*3/uL (0.00-0.03); Imm Gran Pct Auto 0.4 % (0.0-0.4); Lymphocytes Absolute Auto 1.7 X10*3/uL (1.2-4.9); Lymphocytes Percent Auto 23.6 % (20-40); Mean Corpuscular HGB Conc 34.3 g/dl (31.0-36.0); Mean Corpuscular Hemoglobin 29.5 pg (27.0-33.0); Mean Corpuscular Volume 85.9 fL (80.0-98.0); Mean Platelet Volume 9.8 fL (9.4-12.4); Monocytes Absolute Auto 0.5 X10*3/uL (0.1-1.2); Monocytes Percent Auto 6.4 % (2-11); Neutrophils Absolute Auto 4.7 x10*3/uL (2.0-8.3); Neutrophils Percent Auto 66.7 % (45-73); Platelet Count 155 X10*3/uL (160-400); Red Blood Count 5.26 X10*6/uL (4.60-5.80); Red Cell Distribution Width 13.5 % (11.0-16.0)
[2024-04-23 09:03] LABS: Prothrombin Time 36.9 SEC (11.1-13.3)
[2024-04-23 09:25] LABS: Alanine Aminotransferase 23 U/L (0-40); Albumin Level 4.5 g/dL (3.5-5.0); Alkaline Phosphatase 51 U/L (39-117); Anion Gap 11 (12-20); Aspartate Amino Transferase 16 U/L (5-37); Bilirubin Total 0.4 mg/dL (0.0-1.0); Blood Urea Nitrogen 21 mg/dL (9-16); Calcium 9.4 mg/dL (8.4-10.2); Carbon Dioxide 29 mmol/L (22-29); Chloride 105 mmol/L (96-108); Estimated Glomerular Filt Rate > 60; Glucose Random 138 mg/dL (60-115); Potassium 4.5 mmol/L (3.3-5.1); Sodium 140 mmol/L (135-145); Total Protein 7.1 g/dL (6.5-8.0)
[2024-04-23 09:43] LABS: Vitamin D 25-OH Total 82.8 ng/mL (>30)
[2024-04-23 09:56] LABS: Folate 10.6 ng/mL (> or = 4.0); Vitamin B12 470 pg/mL (200-900)
[2024-04-28 12:49] LABS: Zinc 89 mcg/dL (60-130)
== END 2024-04-23 08:32 | disposition home or self-care (01) ==
LOC: HO.LAB 08:31
PROVIDERS: PCP Student in an Organized Health Care Education/Training Program; Visit Provider Internal Medicine Gastroenterology
DX: K70.30 Alcoholic cirrhosis of liver without ascites (principal); Z95.2 Presence of prosthetic heart valve; Z51.81 Encounter for therapeutic drug level monitoring; Z79.01 Long term (current) use of anticoagulants
CPT/HCPCS: 36415; 80053; 82306; 82607; 82746; 84630; 85025; 85610; 99211

== ENCOUNTER 2024-04-23 08:45 | Outpatient (AMB) | payer OTHER, SELFPAY ==
--- NOTE | 2024-04-23 08:53 | MHC.OFFVISCO ---
Intake Intake Visit Reasons: Anticoagulation Allergies No Known Allergies Allergy (Verified 04/23/24 08:50) Medication List - Last Reconciled 04/23/24 by Alba Farris RN blood sugar diagnostic As directed bupropion HCl XL 300 mg PO DAILY buspirone mg PO cyanocobalamin (vitamin B-12) PO DAILY dulaglutide (Trulicity) 1.5 mg subcut QWEEK dulaglutide (Trulicity) mg subcut hydroxyzine HCl 25 mg PO TID metformin 500 mg PO BID metoprolol succinate ER 50 mg PO DAILY omeprazole magnesium 20 mg PO DAILY 30 days psyllium husk (with sugar) 3.4 gram/7 gram (Daily Fiber (psyllium-sucrose)) 1 tsp PO BID 90 days ranitidine HCl mg PO sennosides-docusate sodium 8.6-50 mg (Senna Plus) 2 tabs PO BEDTIME sennosides-docusate sodium 8.6-50 mg (Senna Plus) 2 tab-caps (2 x 8.6-50 mg) PO BEDTIME 90 days sertraline mg PO simvastatin 40 mg PO BEDTIME tadalafil 10 mg PO DAILY trazodone 150 mg PO BEDTIME warfarin mg See Protocol PO Nursing Note INR 3.6-?? out of therapeutic range of 2.5-3.5 Medications and supplements reviewed Patient status: no c.o, labs today Medications or supplements: occ zantac- aware will raise inr Diet: same Denies any signs and symptoms of bleeding or clotting or unusual bruising Bleeding, bruising, clotting discussed Nutritional guidance given: eat a green today Dose: 8mg x 7 F/U INR Date : pt req 4 weeks Patient verbalizing understanding of instructions given. Anti-Coag Initial Assessment Social Hx alcohol intake: former Alcohol intake frequency: holidays/special occasions only Coding Level of Care Code Est Patient Level 1 Diagnoses Current use of anticoagulant therapy Z79.01 Assessment & Plan Assessment & Plan (1) Current use of anticoagulant therapy: Code(s): Z79.01 - [facility]DC (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
[2024-04-23 08:54] LABS: Prothrombin Time Whole Bld POC 42.8 sec (11.1-13.5); ~PT, ~INR - Anti Coag Clinic 3.6 (0.9-1.1)
== END 2024-04-23 09:00 | disposition home or self-care (01) ==
LOC: HO.ACS 08:45
PROVIDERS: PCP Student in an Organized Health Care Education/Training Program; Visit Provider Internal Medicine
DX: Z79.01 Long term (current) use of anticoagulants (principal)

== ENCOUNTER 2024-04-24 09:19 | Outpatient (AMB) | payer OTHER, SELFPAY ==
--- NOTE | 2024-04-24 09:31 | MHC.OFFVIS ---
Vital Signs 04/24/24 09:33 Height 6 ft Weight 207 lb BMI 28.1 BP 92/64 Blood Pressure Location Lt brachial Position Sitting Pulse 75 Intake Visit Reasons: Cirrhosis Intake Note: Patient follow up for cirrhosis and lab results. Patient cc: Nauseas, acid reflex with burning sensation and no a good appetite. 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 Accompanied by: Self / Same As Patient Allergies No Known Allergies Allergy (Verified 04/24/24 09:27) Medication List - Last Reconciled 04/24/24 by Gary Soliman MD blood sugar diagnostic As directed bupropion HCl XL 300 mg PO DAILY buspirone mg PO cyanocobalamin (vitamin B-12) PO DAILY dulaglutide (Trulicity) 1.5 mg subcut QWEEK dulaglutide (Trulicity) mg subcut hydroxyzine HCl 25 mg PO TID metformin 500 mg PO BID metoprolol succinate ER 50 mg PO DAILY psyllium husk (with sugar) 3.4 gram/7 gram (Daily Fiber (psyllium-sucrose)) 1 tsp PO BID 90 days ranitidine HCl mg PO sennosides-docusate sodium 8.6-50 mg (Senna Plus) 2 tabs PO BEDTIME sennosides-docusate sodium 8.6-50 mg (Senna Plus) 2 tab-caps (2 x 8.6-50 mg) PO BEDTIME 90 days sertraline mg PO simvastatin 40 mg PO BEDTIME tadalafil 10 mg PO DAILY trazodone 150 mg PO BEDTIME warfarin mg See Protocol PO HPI HPI Cirrhosis: Details: GI Clinic visit for this 48 YM for FU of alcoholic cirrhosis and chronic hepatitis-C - no viral load detected in 06/2018 and Nov, 2019. ? CHRONIC ILLNESSES:?type II diabetes, S/P AVR (aortic valve replacement) on chcf anticoagulation with warfarin, Hepatitis C virus infection, unspecified chronicity ?LABS [place] [facility]:[place] [facility] [place] ? 11/17/19 normal CBC with platelet count of 168, INR 2.1, normal LFTs, albumin 4.9. ? Liver fibrosis score of 0.69, liver fibrosis stage F3, necroinflammatory score 0.13 ?IMAGING STUDIES: 11/2023 ABD US SHOWED: Mildly increased hepatic echogenicity which can be seen in the setting of hepatic steatosis or underlying liver disease. No hepatic mass. 11/2022 ABD US SHOWED: Sonographic appearance suggests mild hepatic steatosis. No focal liver lesions seen. ? Borderline splenomegaly. 06/03/21 05/18/23 ABD US WITH ELASTOGRAPHY SHOWED: 1. Hepatomegaly with increased echogenicity consistent with fatty infiltration/hepatocellular disease of other etiology. 2. Liver elastography: Measurements are suggestive of compensated advanced chronic liver disease but need further test for confirmation. ABD US SHOWED: Normal-appearing liver. Echogenic appearing pancreas questionable for fatty infiltration. Right renal cysts and question small right renal stone. 12/08/[address] scan showed: ? IMPRESSION: ? 1. There is hepatic steatosis. ? 2. Previously identified of enhancing right hepatic lobe lesions are now not demonstrated with certainty. No new mass or biliary dilatation is seen. ? 3. Multiple bilateral renal cysts are redemonstrated, consistent with prior ultrasound findings. ? 01/[address] scan showed: ? IMPRESSION: Three peripheral arterial enhancing lesions in the posterior segment of the right lobe of the liver. One of these lesions demonstrates washout. The larger 6 mm lesion is similar to most recent exam ? July 2018 and the 2 adjacent more lateral smaller lesions are similar to earliest CT January 2018. Continued attention on follow-up recommended. Slightly enlarged spleen. Question small stable left ? adrenal nodule. Stable bilateral renal cysts. ENDOSCOPIC STUDIES:? 09/06/22 EGD AND COLONOSCOPY SHOWED: Endoscopy Findings: ESOPHAGUS: GE junction at 36 cms, small hiatal hernia 36 to 38 cms. No varices, esophagitis or Saleem's. STOMACH: Mild portal gastropathy and a few 5-8 mm benign appearing polyps in the body of the stomach - biopsied. Mild gastric erythema with a few superficial erosions - biopsies were obtained. Grade 2 flap valve and no gastric varices on retroflexed examination of the cardia. Colonoscopy Findings: One medium sized hyperplastic polyp removed Moderate diverticulosis seen in the sigmoid colon Moderate hemorrhoids on retroflexed exam. Plan:? Patient has an appointment on 10/19/22 in the GI Clinic with Gary Soliman M.D.. Repeat Colonoscopy interval based on path results - in 3-5 years if polyps are adenomatous and 10 years if polyps are hyperplastic. TODAY'S VISIT Patient cc: Nauseas, acid reflex with burning sensation and no a good appetite. No appetite for the past 2 weeks (started Trulicity a year ago) DM since age 20 yrs Complains of ch constipation BM once every 3-4 days with hard stools Taking Senna 1 tab three nights a week and not working very well PAST VISITS: Can wake up with a little nausea sometimes Requesting a refill for Senna. Can have hard stools one week and diarrhea the following week - advised to increase the fibre supplement to twice a day. EGD and colon results reviewed with the patient. Denies having any problems after endoscopic procedures Complains of intermittent LLQ cramps associated with constipation - advised to start a fibre supplement PAST VISIT: Had a new PCP in Dec (Monalisa Dejesus NP) and practice was closed. Now she has opened a new practice in [place] on May 12 and he will set up an appt to see her. Warfarin is managed by [facility] and they do not give prescriptions. Glaze Mixer is Dr Rojas in [place]. Switched to Trulicity and noted abdominal pain and decreased appetite. Constipation is better - has a BM every 2 days. Complains of constipation - has a BM every 4 days with hard stools. ? Doing fine without symptoms - denies fatigue, abdominal distension, black stools or rectal bleeding ? Wt has been stable. ? Abd US results were reviewed with the patient. Taking warfarin 10 mg daily and 5 mg 1 day a week. Interested in [place] [facility] [place] Due for FU labs - would like to go to [facility] for labs ? Treated with Harvoni x 12 weeks for Hepatitis C in 2017 - follow-up hepatitis-C viral load was negative . ? Denies fatigue, jaundice, abdominal distension. ? Denies abdominal pain, dysphagia, heartburn, nausea or vomiting, change in appetite or weight. ? Patient denies change in bowel habits, black stools or rectal bleeding ? Positive family history of colon cancer in his paternal grandfather in his late 70's/early 80's [facility] Medical History (Updated 04/24/24 @ 09:56 by Gary Soliman MD) Aortic valve insufficiency Mitral valve stenosis, non-rheumatic History of intravenous drug abuse On beta andreas at home Hepatitis C On anticoagulant therapy Cirrhosis Hepatitis C virus infection Surgical History Hx of colonoscopy History of esophagogastroduodenoscopy (EGD) H/O skin graft History of liver biopsy H/O aortic valve replacement Family History Father Alive and well Mother Hx of type 2 diabetes mellitus Social History Alcohol intake: former Year quit: 2018 Substance Use Type: Marijuana Review of Systems Const All systems reviewed & are unremarkable except as noted in HPI and below Physical Exam Vital Signs: Last Vital Signs Pulse 75 04/24/24 09:33 BP 92/64 04/24/24 09:33 BMI result Body Mass Index 28.1 Const General: healthy appearing and no acute distress Nutritional Appearance: overweight Orientation/consciousness: patient oriented x3 Limitations: no limitations HEENT Head: Yes normal to inspection Ears: hearing grossly normal bilaterally Eyes Sclerae: sclerae normal Pupils: Equal, round and reactive pupils present Neck Neck: Yes normal visual inspection Chest Chest palpation & inspection: normal inspection of the chest Resp Effort & Inspection: normal respiratory effort Auscultation: clear to auscultation bilaterally Cardio Palpation: normal PMI Rate: regular rate Rhythm: regular rhythm Heart sounds: S1 normal heart sound present, S2 normal heart sound present and no murmurs GI Palpation (GI): Soft to palpation, nontender and No hepatosplenomegaly present Auscultation: normal bowel sounds Rectal Exam - Male: Yes deferred Skin General skin exam: no rashes or lesions noted Neuro General: patient oriented x3, gait normal and moves all extremities Cranial nerves: Yes Equal, round and reactive pupils present Psych Appearance: grossly normal Mental Status: mental status grossly normal Assessment & Plan Assessment & Plan (1) GERD (gastroesophageal reflux disease): Code(s): K21.9 - Gastro-esophageal reflux disease without esophagitis Category: Medical (2) Hepatitis C virus infection: Code(s): B19.20 - Unspecified viral hepatitis C without hepatic coma Category: Medical (3) Alcoholic cirrhosis of liver without ascites: Code(s): K70.30 - Alcoholic cirrhosis of liver without ascites Category: Medical (4) Family history of colon cancer: Comment: Paternal grandfather had colon cancer in his late 70s/early 80s. Patient was advised to start colon cancer screening with colonoscopy at age 45-50 years. 09/02 One medium sized hyperplastic polyp removed during colonoscopy Repeat colonoscopy advised in 5 years due to positive family history (due 08/2027). Code(s): Z80.0 - Family history of malignant neoplasm of digestive organs Category: Medical (5) Chronic constipation: Code(s): K59.09 - Other constipation Category: Medical (6) Nausea: Code(s): R11.0 - Nausea Category: Medical Plan 48 YM with type II diabetes, S/P AVR (aortic valve replacement) followed in GI for compensated cirrhosis likely due to past hepatitis C which was treated in 2017. Patient denies regular EtOH use. Liver fibrosis test showed F3 fibrosis. MELD score is 18 due to INR of 2.7 (pt is on warfarin for aortic valve replacement) Abdominal CT scan in January 2019 showed three small hepatic lesions which were stable. 12/01 no hepatic lesions noted on repeat CT scan. Course and prognosis of cirrhosis was discussed with the patient during his past visit and he was given patient handout from up-to-date on cirrhosis. Pt states he had Hep B immunization several yrs ago. Recent Hep B serologies showed negative Hep B surface and core ab. 08/2022 EGD and colonoscopy were performed and findings as noted above. 04/26/23 Can have hard stools one week and diarrhea the following week - advised to increase the fibre supplement to twice a day. 10/25/23 Complains of ch constipation BM once every 3-4 days with hard stools Taking Senna 1 tab three nights a week and not working very well Pt advised to increase Senna to 2 tabs at bedtime for constipation 04/24/24 schedule Abd US - FU of cirrhosis Gastric emptying study for evaluation of nausea FU in 3 month Orders: Orders NM gastric emptying study Today R11.0 - Nausea US abdomen limited Today K70.30 - Alcoholic cirrhosis of liver without ascites Medications: New ondansetron 4 mg PO Q8H PRN 40 tabs 2RF nausea and vomiting 30 days R11.0 - Nausea Coding Level of Care Code Est Pt Level 3 (70322) Diagnoses GERD (gastroesophageal reflux disease) K21.9 Hepatitis C virus infection B19.20 Alcoholic cirrhosis of liver without ascites K70.30 Family history of colon cancer Z80.0 Chronic constipation K59.09 Nausea R11.0 Time Spent (min) 19
[2024-04-24 09:33] VITALS: BP 92/64; PULSE 75; BMI 28.1
== END 2024-04-24 10:14 | disposition home or self-care (01) ==
PROVIDERS: PCP Student in an Organized Health Care Education/Training Program; Visit Provider Internal Medicine Gastroenterology
DX: K21.9 Gastro-esophageal reflux disease without esophagitis (principal); B19.20 Unspecified viral hepatitis C without hepatic coma; K70.30 Alcoholic cirrhosis of liver without ascites; Z80.0 Family history of malignant neoplasm of digestive organs; K59.09 Other constipation; R11.0 Nausea
CPT/HCPCS: 99213

== ENCOUNTER → 2024-04-24 09:19 | Outpatient (BNVA) | payer OTHER, SELFPAY | PROVIDERS: PCP Student in an Organized Health Care Education/Training Program; Visit Provider Internal Medicine Gastroenterology | DX: K21.9 Gastro-esophageal reflux disease without esophagitis (principal); K70.30 Alcoholic cirrhosis of liver without ascites; K59.09 Other constipation; R11.0 Nausea; B19.20 Unspecified viral hepatitis C without hepatic coma; Z80.0 Family history of malignant neoplasm of digestive organs | CPT/HCPCS: 99212 ==

== ENCOUNTER 2024-05-02 08:24 | Outpatient (REF) | payer OTHER, SELFPAY ==
--- NOTE | ~2024-05-02 | US_ITS ---
EXAMINATION: US ABDOMEN LIMITED CLINICAL INFORMATION: Alcoholic cirrhosis of liver without ascites. Screening for HCC and ascites. COMPARISON: Ultrasound abdomen limited 11/13/2023 and 05/18/2023. CT abdomen 12/08/2019. TECHNIQUE: Real-time imaging of the right upper quadrant abdominal viscera. Limited visualization due to bowel gas. FINDINGS: PANCREAS: Limited visualization of pancreatic tail and head. Imaged portion of pancreatic body is unremarkable. LIVER: Increased hepatic parenchymal heterogeneity and echogenicity could be associated with hepatocellular disease/hepatic steatosis and substantially limits visualization. Correlation with liver function tests and clinical exam recommended to determine further management. GALLBLADDER: No gallstones. No gallbladder wall thickening. COMMON BILE DUCT: Normal in caliber measuring 0.35 cm in diameter. RIGHT KIDNEY: No hydronephrosis. No renal calculi. Limited visualization. Redemonstration of a 6.1 x 4.9 x 5.3 cm lower pole cyst with benign features. There is no indication for additional imaging at this time. The kidney measures 12.3 cm in maximum dimension. FREE FLUID: None. US/US abdomen limited IMPRESSION: Increased hepatic parenchymal heterogeneity and echogenicity could be associated with hepatocellular disease/hepatic steatosis and substantially limits visualization. Correlation with liver function tests and clinical exam recommended to determine further management.
== END 2024-05-02 08:25 | disposition home or self-care (01) ==
LOC: HO.HMGCX 08:24
PROVIDERS: PCP Student in an Organized Health Care Education/Training Program; Visit Provider Internal Medicine Gastroenterology
DX: K70.30 Alcoholic cirrhosis of liver without ascites (principal)
CPT/HCPCS: 76705

== ENCOUNTER → 2024-05-22 08:16 | Outpatient (REF) | payer OTHER, SELFPAY ==
--- NOTE | ~2024-05-22 | NM_ITS ---
EXAMINATION: MN RADIONUCLIDE SOLID FOOD GASTRIC EMPTYING 4-HOUR STUDY CLINICAL INFORMATION: Nausea. Diabetes mellitus for 30 years. Suspected gastroparesis. COMPARISON: None TECHNIQUE: A standard meal consisting of 4 oz of Egg Beaters brand tagged with 820 microcuries Tc-99m Sulfur Colloid, 8 oz water and 2 slices of toast with jelly was administered orally to the patient. Images were obtained using a dual head gamma camera in the anterior and posterior projections over of the stomach immediately post ingestion and at hourly intervals up to 4 hours post ingestion. The anterior and posterior counts at each time interval were averaged using the geometric mean and expressed as percentage of the immediate post ingestion counts. FINDINGS: There is good visualization of activity in the stomach immediately post ingestion. As the study progresses, there is good clearance of activity from the stomach and visualization of progressively increasing small bowel activity. By the end of the study, there is almost no retention noted in the stomach. Retention in the stomach at each time interval was: 1 hour 52% (normal 37%-90%) 2 hours 29% (normal 30%-60%) 3 hours 14% 4 hours 9% (normal 0%-10%) MN/MN gastric emptying study IMPRESSION: Normal 4-hour solid food gastric emptying study. For solid meal, rapid gastric emptying is less than 30% at 60 minutes. Delayed gastric emptying criteria is more than 60% remaining at 120 minutes or more than 10% at 240 minutes. The 4-hour value is the best discriminator of a normal or abnormal result). Gastric emptying study grading per JNMT Consensus Recommendations in 2008 (https://tech.snmjournals.org/content/36/44) Grade 1 (mild retention): 11-20% at 4h Grade 2 (moderate retention): 21-35% at 4h Grade 3 (severe retention): 36-50% at 4h Grade 4 (very severe retention): >50% retention at 4h
== END ==
LOC: HO.NUCMED 08:16
PROVIDERS: PCP Student in an Organized Health Care Education/Training Program; Visit Provider Internal Medicine Gastroenterology
DX: R11.0 Nausea (principal)
CPT/HCPCS: 78264; A9541

== ENCOUNTER 2024-05-23 09:18 | Outpatient (AMB) | payer OTHER, SELFPAY ==
--- NOTE | 2024-05-23 09:45 | MHC.OFFVISCO ---
Intake Intake Visit Reasons: Anticoagulation Allergies No Known Allergies Allergy (Verified 05/23/24 09:35) Medication List - Last Reconciled 05/23/24 by Hawa Diaz RN blood sugar diagnostic As directed bupropion HCl XL 300 mg PO DAILY buspirone mg PO cyanocobalamin (vitamin B-12) PO DAILY dulaglutide (Trulicity) 1.5 mg subcut QWEEK dulaglutide (Trulicity) mg subcut hydroxyzine HCl 25 mg PO TID metformin 500 mg PO BID metoprolol succinate ER 50 mg PO DAILY ondansetron 4 mg PO Q8H PRN 30 days psyllium husk (with sugar) 3.4 gram/7 gram (Daily Fiber (psyllium-sucrose)) 1 tsp PO BID 90 days ranitidine HCl mg PO sennosides-docusate sodium 8.6-50 mg (Senna Plus) 2 tabs PO BEDTIME sennosides-docusate sodium 8.6-50 mg (Senna Plus) 2 tab-caps (2 x 8.6-50 mg) PO BEDTIME 90 days sertraline mg PO simvastatin 40 mg PO BEDTIME tadalafil 10 mg PO DAILY trazodone 150 mg PO BEDTIME warfarin mg See Protocol PO Nursing Note INR: 3.0 in therapeutic range of 2.5-3.5 Medications and supplements reviewed No changes in health, diet, medications, or supplements, Denies any signs and symptoms of bleeding or bruising or clotting. 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
[2024-05-23 09:50] LABS: Prothrombin Time Whole Bld POC 35.7 sec (11.1-13.5)
== END 2024-05-23 09:49 | disposition home or self-care (01) ==
LOC: HO.ACS 09:18
PROVIDERS: PCP Student in an Organized Health Care Education/Training Program; Visit Provider Internal Medicine
DX: Z79.01 Long term (current) use of anticoagulants (principal)

== ENCOUNTER → 2024-05-23 09:18 | Outpatient (BNVA) | payer OTHER, SELFPAY | PROVIDERS: PCP Student in an Organized Health Care Education/Training Program; Visit Provider Internal Medicine | DX: Z95.2 Presence of prosthetic heart valve (principal); Z79.01 Long term (current) use of anticoagulants; Z51.81 Encounter for therapeutic drug level monitoring | CPT/HCPCS: 85610; 99211 ==

== ENCOUNTER 2024-06-23 09:24 | Outpatient (AMB) | payer OTHER, SELFPAY ==
--- NOTE | 2024-06-23 09:28 | MHC.OFFVISCO ---
Intake Intake Visit Reasons: Anticoagulation Allergies No Known Allergies Allergy (Verified 06/23/24 09:24) Medication List - Last Reconciled 06/23/24 by Alba Farris RN blood sugar diagnostic As directed bupropion HCl XL 300 mg PO DAILY buspirone mg PO cyanocobalamin (vitamin B-12) PO DAILY dulaglutide (Trulicity) 1.5 mg subcut QWEEK dulaglutide (Trulicity) mg subcut hydroxyzine HCl 25 mg PO TID metformin 500 mg PO BID metoprolol succinate ER 50 mg PO DAILY ondansetron 4 mg PO Q8H PRN 30 days psyllium husk (with sugar) 3.4 gram/7 gram (Daily Fiber (psyllium-sucrose)) 1 tsp PO BID 90 days ranitidine HCl mg PO sennosides-docusate sodium 8.6-50 mg (Senna Plus) 2 tabs PO BEDTIME sennosides-docusate sodium 8.6-50 mg (Senna Plus) 2 tab-caps (2 x 8.6-50 mg) PO BEDTIME 90 days sertraline mg PO simvastatin 40 mg PO BEDTIME tadalafil 10 mg PO DAILY trazodone 150 mg PO BEDTIME warfarin mg See Protocol PO Nursing Note INR: 3.0 in therapeutic range of 2.5-3.5 Medications and supplements reviewed No changes in health, diet, medications, or supplements, Denies any signs and symptoms of bleeding or bruising or clotting. Bleeding, bruising, clotting discussed Nutritional guidance given Dose: 8mg x 7 F/U INR: 4 weeks Patient verbalizes understanding of instructions given Anti-Coag Initial Assessment Social Hx alcohol intake: former Alcohol intake frequency: holidays/special occasions only Coding Level of Care Code Est Patient Level 1 Diagnoses Current use of anticoagulant therapy Z79.01 Results AMB INR Fingerstick AMB INR Fingerstick 3.0 Last Edit by Alba Farris RN on 06/23/24 09:29 interface delay Assessment & Plan Assessment & Plan (1) Current use of anticoagulant therapy: Code(s): Z79.01 - lotteries agent (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
[2024-06-23 09:29] LABS: Prothrombin Time Whole Bld POC 35.7 sec (11.1-13.5)
== END 2024-06-23 09:35 | disposition home or self-care (01) ==
LOC: HO.ACS 09:24
PROVIDERS: PCP Student in an Organized Health Care Education/Training Program; Visit Provider Internal Medicine
DX: Z79.01 Long term (current) use of anticoagulants (principal)

== ENCOUNTER → 2024-06-23 09:24 | Outpatient (BNVA) | payer OTHER, SELFPAY | PROVIDERS: PCP Student in an Organized Health Care Education/Training Program; Visit Provider Internal Medicine | DX: Z95.2 Presence of prosthetic heart valve (principal); Z79.01 Long term (current) use of anticoagulants; Z51.81 Encounter for therapeutic drug level monitoring | CPT/HCPCS: 85610; 99211 ==

== ENCOUNTER 2024-07-25 09:21 | Outpatient (AMB) | payer OTHER, SELFPAY ==
[2024-07-25 09:29] LABS: Prothrombin Time Whole Bld POC 33.4 sec (11.1-13.5); ~PT, ~INR - Anti Coag Clinic 2.8 (0.9-1.1)
--- NOTE | 2024-07-25 09:31 | MHC.OFFVISCO ---
Intake Intake Visit Reasons: Anticoagulation Allergies No Known Allergies Allergy (Verified 07/25/24 09:23) Medication List - Last Reconciled 07/25/24 by Hawa Diaz RN blood sugar diagnostic As directed bupropion HCl XL 300 mg PO DAILY buspirone mg PO cyanocobalamin (vitamin B-12) PO DAILY dulaglutide (Trulicity) 1.5 mg subcut QWEEK dulaglutide (Trulicity) mg subcut hydroxyzine HCl 25 mg PO TID metformin 500 mg PO BID metoprolol succinate ER 50 mg PO DAILY ondansetron 4 mg PO Q8H PRN 30 days psyllium husk (with sugar) 3.4 gram/7 gram (Daily Fiber (psyllium-sucrose)) 1 tsp PO BID 90 days ranitidine HCl mg PO sennosides-docusate sodium 8.6-50 mg (Senna Plus) 2 tabs PO BEDTIME sennosides-docusate sodium 8.6-50 mg (Senna Plus) 2 tab-caps (2 x 8.6-50 mg) PO BEDTIME 90 days sertraline mg PO simvastatin 40 mg PO BEDTIME tadalafil 10 mg PO DAILY trazodone 150 mg PO BEDTIME warfarin mg See Protocol PO Nursing Note INR: 2.8 in therapeutic range of 2.5-3.5 Medications and supplements reviewed No changes in health, diet, medications, or supplements, Denies any signs and symptoms of bleeding or bruising or clotting. 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
== END 2024-07-25 09:32 | disposition home or self-care (01) ==
LOC: HO.ACS 09:21
PROVIDERS: PCP Student in an Organized Health Care Education/Training Program; Visit Provider Internal Medicine
DX: Z79.01 Long term (current) use of anticoagulants (principal)

== ENCOUNTER → 2024-07-25 09:21 | Outpatient (BNVA) | payer OTHER, SELFPAY | PROVIDERS: PCP Student in an Organized Health Care Education/Training Program; Visit Provider Internal Medicine | DX: Z95.2 Presence of prosthetic heart valve (principal); Z79.01 Long term (current) use of anticoagulants; Z51.81 Encounter for therapeutic drug level monitoring | CPT/HCPCS: 85610; 99211 ==

== ENCOUNTER 2024-08-22 09:28 | Outpatient (AMB) | payer OTHER, SELFPAY ==
[2024-08-22 09:50] LABS: Prothrombin Time Whole Bld POC 39.6 sec (11.1-13.5); ~PT, ~INR - Anti Coag Clinic 3.3 (0.9-1.1)
--- NOTE | 2024-08-22 09:55 | MHC.OFFVISCO ---
Intake Intake Visit Reasons: Anticoagulation Allergies No Known Allergies Allergy (Verified 08/22/24 09:38) Medication List - Last Reconciled 08/22/24 by Jacqui Mendoza RN blood sugar diagnostic As directed bupropion HCl XL 300 mg PO DAILY buspirone 15 mg PO BID clonazepam 1 mg PO BEDTIME PRN cyanocobalamin (vitamin B-12) PO DAILY dulaglutide (Trulicity) 1.5 mg subcut QWEEK dulaglutide (Trulicity) mg subcut hydroxyzine HCl 25 mg PO TID metformin 500 mg PO BID metoprolol succinate ER 50 mg PO DAILY ondansetron 4 mg PO Q8H PRN prazosin 1 mg PO BEDTIME psyllium husk (with sugar) 3.4 gram/7 gram (Daily Fiber (psyllium-sucrose)) 1 tsp PO BID 90 days ranitidine HCl mg PO sennosides-docusate sodium 8.6-50 mg (Senna Plus) 2 tabs PO BEDTIME sennosides-docusate sodium 8.6-50 mg (Senna Plus) 2 tab-caps (2 x 8.6-50 mg) PO BEDTIME 90 days sertraline mg PO simvastatin 40 mg PO BEDTIME tadalafil 10 mg PO DAILY trazodone 150 mg PO BEDTIME warfarin mg See Protocol PO Nursing Note INR: 3.3 in therapeutic range 2.5-3.5 Medications and supplements reviewed- ON NEW MEDS FOR ANXIETY/PTSD- ENC SLOW DEEP BREATHING AM AND PM ALSO No changes in health, diet, supplements, Denies any signs and symptoms of bleeding or bruising or clotting. Bleeding, bruising, clotting discussed Nutritional guidance given Dose: 8MG DAILY F/U INR: 1 MONTH Patient verbalizes understanding of instructions given Anti-Coag Initial Assessment Social Hx alcohol intake: former Alcohol intake frequency: holidays/special occasions only Coding Level of Care Code Est Patient Level 1 Diagnoses Current use of anticoagulant therapy Z79.01 Results AMB INR Fingerstick AMB INR Fingerstick 3.2 Last Edit by Jacqui Mendoza RN on 08/22/24 09:50 manual entry AMB INR Fingerstick AMB INR Fingerstick 3.3 Last Edit by Jacqui Mendoza RN on 08/22/24 09:51 MANUAL ENTRY Assessment & Plan Assessment & Plan (1) Current use of anticoagulant therapy: Code(s): Z79.01 - FPC (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
== END 2024-08-22 09:56 | disposition home or self-care (01) ==
LOC: HO.ACS 09:28
PROVIDERS: PCP Student in an Organized Health Care Education/Training Program; Visit Provider Internal Medicine
DX: Z79.01 Long term (current) use of anticoagulants (principal)

== ENCOUNTER → 2024-08-22 09:28 | Outpatient (BNVA) | payer OTHER, SELFPAY | PROVIDERS: PCP Student in an Organized Health Care Education/Training Program; Visit Provider Internal Medicine | DX: Z95.2 Presence of prosthetic heart valve (principal); Z79.01 Long term (current) use of anticoagulants; Z51.81 Encounter for therapeutic drug level monitoring | CPT/HCPCS: 85610; 99211 ==

== ENCOUNTER 2024-09-19 09:21 | Outpatient (AMB) | payer OTHER, SELFPAY ==
--- NOTE | 2024-09-19 09:34 | MHC.OFFVISCO ---
Intake Intake Visit Reasons: Anticoagulation Allergies No Known Allergies Allergy (Verified 09/19/24 09:27) Medication List - Last Reconciled 09/19/24 by Hawa Diaz RN blood sugar diagnostic As directed bupropion HCl XL 300 mg PO DAILY buspirone 15 mg PO BID clonazepam 1 mg PO BEDTIME PRN cyanocobalamin (vitamin B-12) PO DAILY dulaglutide (Trulicity) 1.5 mg subcut QWEEK dulaglutide (Trulicity) mg subcut hydroxyzine HCl 25 mg PO TID metformin 500 mg PO BID metoprolol succinate ER 50 mg PO DAILY ondansetron 4 mg PO Q8H PRN prazosin 1 mg PO BEDTIME psyllium husk (with sugar) 3.4 gram/7 gram (Daily Fiber (psyllium-sucrose)) 1 tsp PO BID 90 days ranitidine HCl mg PO sennosides-docusate sodium 8.6-50 mg (Senna Plus) 2 tabs PO BEDTIME sennosides-docusate sodium 8.6-50 mg (Senna Plus) 2 tab-caps (2 x 8.6-50 mg) PO BEDTIME 90 days sertraline mg PO simvastatin 40 mg PO BEDTIME tadalafil 10 mg PO DAILY trazodone 150 mg PO BEDTIME warfarin mg See Protocol PO Nursing Note INR: 3.3 in therapeutic range of 2.5-3.5 Medications and supplements reviewed No changes in health, diet, medications, or supplements, Denies any signs and symptoms of bleeding or bruising or clotting. Bleeding, bruising, clotting discussed Nutritional guidance given Dose: 8mg daily F/U INR: 4 weeks Patient verbalizes understanding of instructions given Anti-Coag Initial Assessment Social Hx alcohol intake: former Alcohol intake frequency: holidays/special occasions only Coding Level of Care Code Est Patient Level 1 Diagnoses Current use of anticoagulant therapy Z79.01 Results AMB INR Fingerstick AMB INR Fingerstick 3.3 Last Edit by Hawa Diaz RN on 09/19/24 09:31 interface delay Assessment & Plan Assessment & Plan (1) Current use of anticoagulant therapy: Code(s): Z79.01 - emt intermediate (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
[2024-09-19 09:41] LABS: Prothrombin Time Whole Bld POC 40.2 sec (11.1-13.5); ~PT, ~INR - Anti Coag Clinic 3.3 (0.9-1.1)
== END 2024-09-19 09:36 | disposition home or self-care (01) ==
LOC: HO.ACS 09:21
PROVIDERS: PCP Student in an Organized Health Care Education/Training Program; Visit Provider Internal Medicine
DX: Z79.01 Long term (current) use of anticoagulants (principal)

== ENCOUNTER → 2024-09-19 09:21 | Outpatient (BNVA) | payer OTHER, SELFPAY | PROVIDERS: PCP Student in an Organized Health Care Education/Training Program; Visit Provider Internal Medicine | DX: Z95.2 Presence of prosthetic heart valve (principal); Z79.01 Long term (current) use of anticoagulants; Z51.81 Encounter for therapeutic drug level monitoring | CPT/HCPCS: 85610; 99211 ==

== ENCOUNTER 2024-10-17 09:41 | Outpatient (AMB) | payer OTHER, SELFPAY ==
[2024-10-17 09:46] LABS: Prothrombin Time Whole Bld POC 32.8 sec (11.1-13.5); ~PT, ~INR - Anti Coag Clinic 2.7 (0.9-1.1)
--- NOTE | 2024-10-17 09:46 | MHC.OFFVISCO ---
Intake Intake Visit Reasons: Anticoagulation Allergies No Known Allergies Allergy (Verified 10/17/24 09:41) Medication List - Last Reconciled 10/17/24 by Hawa Diaz RN blood sugar diagnostic As directed bupropion HCl XL 300 mg PO DAILY buspirone 15 mg PO BID clonazepam 1 mg PO BEDTIME PRN cyanocobalamin (vitamin B-12) PO DAILY dulaglutide (Trulicity) 1.5 mg subcut QWEEK dulaglutide (Trulicity) mg subcut hydroxyzine HCl 25 mg PO TID metformin 500 mg PO BID metoprolol succinate ER 50 mg PO DAILY ondansetron 4 mg PO Q8H PRN prazosin 1 mg PO BEDTIME psyllium husk (with sugar) 3.4 gram/7 gram (Daily Fiber (psyllium-sucrose)) 1 tsp PO BID 90 days ranitidine HCl mg PO sennosides-docusate sodium 8.6-50 mg (Senna Plus) 2 tabs PO BEDTIME sennosides-docusate sodium 8.6-50 mg (Senna Plus) 2 tab-caps (2 x 8.6-50 mg) PO BEDTIME 90 days sertraline mg PO simvastatin 40 mg PO BEDTIME tadalafil 10 mg PO DAILY trazodone 150 mg PO BEDTIME warfarin mg See Protocol PO Nursing Note INR: 2.7 in therapeutic range of 2.5-3.5 Medications and supplements reviewed No changes in health, diet, medications, or supplements, Denies any signs and symptoms of bleeding or bruising or clotting. Bleeding, bruising, clotting discussed Nutritional guidance given Dose: 8mg daily F/U INR: 4 weeks Patient verbalizes understanding of instructions given Anti-Coag Initial Assessment Social Hx alcohol intake: former Alcohol intake frequency: holidays/special occasions only Coding Level of Care Code Est Patient Level 1 Diagnoses Current use of anticoagulant therapy Z79.01 Assessment & Plan Assessment & Plan (1) Current use of anticoagulant therapy: Code(s): Z79.01 - detention (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
--- OUTSIDE RECORDS SUMMARY | 2024-10-22 07:05 | XMS_ITS | Continuity of Care Document ---
Author Organization [facility] Adult Address [address] [place] [id number]- Care Team Providers Care Percolator Operator Name Role Phone Sean ALEMAN, Vandana Timmons Primary Care P scotty Encounter [facility] Date(s): 09/15/24 - 10/15/[address] [id number] Encounter Type: Triage Allergies, Adverse Reactions, Alerts No Known Allergies Immunizations Given and Recorded Vaccine Date Status Refusal Reason influenza virus vaccine, inactivated 07/31/24 Obinna rded influenza virus vaccine, inactivated 10/31/23 Give n influenza virus vaccine, inactivated 11/10/22 Obinna rded influenza virus vaccine, inactivated 09/02/21 Obinna rded influenza virus vaccine, inactivated 07/29/20 Obinna rded influenza virus vaccine, inactivated 08/02/18 Obinna rded influenza virus vaccine, inactivated 11/23/17 Obinna rded influenza virus vaccine, inactivated 1 02/24/06 Gi rito SARS-CoV-2(COVID-19)mRNA-LNP vac([id number]) 07/31/24 Recorded tetanus/diphtheria/pertussis, acel(Tdap) 2 01/18/23 Given [id number] bivalent booster vax 10/26/22 Recorded SARS-CoV-2 (COVID-19) mRNA-1273 vaccine 09/14/21 R ecorded SARS-CoV-2 (COVID-19) mRNA-1273 vaccine 03/10/21 R ecorded SARS-CoV-2 (COVID-19) mRNA-1273 vaccine 02/09/21 R ecorded hepatitis B adult vaccine 11/17/19 Recorded pneumococcal 23-valent vaccine 11/23/17 Recorded Pneumococcal Vaccine (oldterm) 3 02/24/06 Given 1Result Comment: [id number] exp 02/25/06 2Result Comment: [facility] [id number] 3Result Comment: [id number] exp 04/13/07 Medications busPIRone 15 mg oral tablet TAKE 1 TABLET BY MOUTH TWICE A DAY DIRECTED FOR ANXIETY Start Date: 05/01/24 Status: Ordered Repeat number: 1 Cialis 10 mg oral tablet 1 tablet = 10 mg, By Mouth, Daily, 1 hour before sexual activity, # 30 tablet, 0 Refills, Maintenance, 07/06/23 12:46:00 PM EDT, Tablet, [id number], Partial fill upon patient request if the prescription is for a schedule II opioid drug., 182, cm, 06/29/23 8:13:00 EDT, Height Start Date: 07/06/23 Stop Date: 08/05/23 Status: Ordered Quantity: 30.0 Unit: tablet Repeat number: 1 FREESTYLE LITE TEST STRIP FREESTYLE LITE TEST STRIP, See Instructions, # 200 Unknown, 1 Refills, Maintenance, USE DIRECTEDTWICE DAILY FOR TYPE 2 DIABETES MELLITUS, 07/04/24 1:36:00 PM EDT, 182, cm, 07/03/24 9:35:00 EDT, Height Start Date: 07/04/24 Status: Ordered Quantity: 200.0 Unit: Unknown Repeat number: 1 Freestyle Lite Test Strips See Instructions, # 200 each, Refills 5, Tot. Refills 5, Maintenance, use as directed twice daily for Type 2 Diabetes Mellitus, 06/29/23 8:27:00 AM EDT, Supply, 182, cm, 06/29/23 8:13:00 EDT, Height Start Date: 06/29/23 Stop Date: 12/26/23 Status: Ordered Quantity: 200.0 Unit: each Repeat number: 6 Jardiance 25 mg oral tablet 1 tablet = 25 mg, By Mouth, Daily in AM, # 90 tablet, 1 Refills, Maintenance, 07/03/24 10:04:00 AM EDT, Tablet, [id number], Partial fill upon patient request if the prescription is for a schedule II opioid drug., 182, cm, 07/03/24 9:35:00 EDT, Height Start Date: 07/03/24 Status: Ordered Quantity: 90.0 Unit: tablet Repeat number: 2 metFORMIN 500 mg oral tablet 1 tablet = 500 mg, By Mouth, 2 times a day, # 180 tablet, 3 Refills, Maintenance, 07/03/24 10:04:00 AM EDT, Tablet, [id number], Partial fill upon patient request if the prescription is for a schedule II opioid drug., 182, cm, 07/03/24 9:35:00 EDT, Height Start Date: 07/03/24 Status: Ordered Quantity: 180.0 Unit: tablet Repeat number: 4 Metoprolol Succinate ER 50 mg oral tablet, extended release 1 tablet, By Mouth, Daily, # 90 tablet, 1 Refills, Maintenance, 04/02/24 9:23:00 AM EDT, [id number], 182, cm, 10/31/23 10:55:00 EST, Height Start Date: 04/02/24 Status: Ordered Quantity: 90.0 Unit: tablet Repeat number: 1 ondansetron 4 mg oral tablet, disintegrating DISSOLVE 1 TABLET ORALLY EVERY 8 HOURS NEEDED FOR NAUSEA AND VOMITING FOR 30 DAYS Start Date: 05/01/24 Status: Ordered Repeat number: 1 sertraline 100 mg oral tablet TAKE 2 TABLETS BY MOUTH EVERY MORNING DEPRESSION, ANXIETY Start Date: 05/01/24 Status: Ordered Repeat number: 1 simvastatin 40 mg oral tablet 1, tablet, By Mouth, Daily in PM, # 90 tablet, Refills 1, Maintenance, 08/14/24 12:05:00 PM EDT, Route to Pharmacy Electronically, [id number], 182, cm, 07/03/24 9:35:00 EDT, Height Start Date: 08/14/24 Status: Ordered Quantity: 90.0 Unit: tablet Repeat number: 1 Trulicity Pen 0.75 mg/0.5 mL subcutaneous solution See Instructions, INJECT 0.5ML SUBCUTANEOUS EVERY WEEK ROTATE INJECTION SITES, # 2 Unknown, 5 Refills, Maintenance, 07/04/24 1:36:00 PM EDT, [id number], 182, cm, 07/03/24 9:35:00 EDT, Height Start Date: 07/04/24 Status: Ordered Quantity: 2.0 Unit: Unknown Repeat number: 1 warfarin 4 mg oral tablet 1 TO 2 TABLETS, By Mouth, Daily, DIRECTED., # 60 tablet, 5 Refills, Maintenance, 07/24/24 2:52:00PM EDT, [id number], 182, cm, 07/03/24 9:35:00 EDT, Height Start Date: 07/24/24 Status: Ordered Quantity: 60.0 Unit: tablet Repeat number: 1 Problem List Condition Confirmation Course Effective Dates Status H ealth Status Informant Cirrhosis of liver Confirmed Active KUSUM (generalized anxiety disorder) Confirmed Active History of alcohol abuse Confirmed Active Aortic valve replaced Confirmed Active History of substance use Confirmed Active Hyperlipidemia Confirmed Active Major depression Confirmed Active Low testosterone Confirmed Active Type II diabetes mellitus Confirmed Active Social History Social History Type Response Tobacco Use: quit smoking , smoked a pack a day for 20 years . Sex Sex Representation Male (finding) Patient Care team information Care Team Personnel Name: Manjinder Pastrana RN Position: [facility] RN Member Role: Primary Care Nurse Name: Sean ALEMAN, Vandana Timmons Position: [facility] PCO Associate Professional Member Role: PCP Address: [address] [place] [address]. [address] [place] [address]- Telecom: Name: Grisel Hardy RN Position: [facility] RN Member Role: Primary Care Nurse Care Team Related Persons Name: ANASTACIO MALIK Name: KATHY MALIK Name: BUCK JANE Insurance Providers Guarantor name: STACEY MALIK Health Plan Information #: 1 Payer: [facility] Member Number: NA Policy Number: NA Group Number: NA
== END 2024-10-17 09:46 | disposition home or self-care (01) ==
LOC: HO.ACS 09:41
PROVIDERS: PCP Student in an Organized Health Care Education/Training Program; Visit Provider Internal Medicine
DX: Z79.01 Long term (current) use of anticoagulants (principal)

== ENCOUNTER → 2024-10-17 09:41 | Outpatient (BNVA) | payer OTHER, SELFPAY | PROVIDERS: PCP Student in an Organized Health Care Education/Training Program; Visit Provider Internal Medicine | DX: Z95.2 Presence of prosthetic heart valve (principal); Z79.01 Long term (current) use of anticoagulants; Z51.81 Encounter for therapeutic drug level monitoring | CPT/HCPCS: 85610; 99211 ==

== ENCOUNTER 2024-11-06 08:24 | Outpatient (AMB) | payer OTHER, SELFPAY ==
--- NOTE | 2024-11-06 08:39 | MHC.OFFVIS ---
Vital Signs 11/06/24 08:41 Height 6 ft Weight 210 lb BMI 28.5 BP 105/70 Blood Pressure Location Lt brachial Position Sitting Pulse 85 Intake Visit Reasons: 3 month follow up Intake Note: Patient 3 months follow up for Alcoholic cirrhosis of liver without ascites, GES/US results. Patient cc: constipation on and off. Formula Weigher Required: No Accompanied by: Self / Same As Patient Allergies No Known Allergies Allergy (Verified 11/14/24 09:42) Medication List - Last Reconciled 11/06/24 by Gary Soliman MD blood sugar diagnostic As directed bupropion HCl XL 300 mg PO DAILY buspirone 15 mg PO BID clonazepam 1 mg PO BEDTIME PRN cyanocobalamin (vitamin B-12) PO DAILY dulaglutide (Trulicity) mg subcut metformin 500 mg PO BID metoprolol succinate ER 50 mg PO DAILY ondansetron 4 mg PO Q8H PRN prazosin 1 mg PO BEDTIME psyllium husk (with sugar) 3.4 gram/7 gram (Daily Fiber (psyllium-sucrose)) 1 tsp PO BID 90 days sennosides-docusate sodium 8.6-50 mg (Senna Plus) 2 tabs PO BEDTIME sertraline mg PO simvastatin 40 mg PO BEDTIME tadalafil 10 mg PO DAILY trazodone 150 mg PO BEDTIME warfarin mg See Protocol PO HPI HPI 3 month follow up: Details: GI Clinic visit for this 49 YM for FU of alcoholic cirrhosis and chronic hepatitis-C - no viral load detected in 06/2018 and Nov, 2019. ? CHRONIC ILLNESSES:?type II diabetes, S/P AVR (aortic valve replacement) on health unit coordinator anticoagulation with warfarin, Hepatitis C virus infection, unspecified chronicity Medication List - Last Reconciled 04/24/24 by Gary Soliman MD blood sugar diagnostic As directed bupropion HCl XL 300 mg PO DAILY buspirone mg PO cyanocobalamin (vitamin B-12) PO DAILY dulaglutide (Trulicity) 1.5 mg subcut QWEEK dulaglutide (Trulicity) mg subcut hydroxyzine HCl 25 mg PO TID metformin 500 mg PO BID metoprolol succinate ER 50 mg PO DAILY psyllium husk (with sugar) 3.4 gram/7 gram (Daily Fiber (psyllium-sucrose)) 1 tsp PO BID 90 days ranitidine HCl mg PO sennosides-docusate sodium 8.6-50 mg (Senna Plus) 2 tabs PO BEDTIME sennosides-docusate sodium 8.6-50 mg (Senna Plus) 2 tab-caps (2 x 8.6-50 mg) PO BEDTIME 90 days sertraline mg PO simvastatin 40 mg PO BEDTIME tadalafil 10 mg PO DAILY trazodone 150 mg PO BEDTIME warfarin mg See Protocol PO HPI HPI Cirrhosis: Details: GI Clinic visit for this 48 YM for FU of alcoholic cirrhosis and chronic hepatitis-C - no viral load detected in 06/2018 and Nov, 2019. ? CHRONIC ILLNESSES:?type II diabetes, S/P AVR (aortic valve replacement) on snf anticoagulation with warfarin, Hepatitis C virus infection, unspecified chronicity TODAY'S VISIT Abdominal ultrasound and gastric emptying study results were reviewed with the patient. Nausea is a little better. Appetite is up and down - some days he is hungry and other days he is not Denies HB, dysphagia or abd pain. Constipation comes and goes. Takes Senna 2 tab at bedtime 3 times a week with good results PAST VISITS: No appetite for the past 2 weeks (started Trulicity a year ago) DM since age 20 yrs Complains of ch constipation BM once every 3-4 days with hard stools Taking Senna 1 tab three nights a week and not working very well Can wake up with a little nausea sometimes Requesting a refill for Senna. Can have hard stools one week and diarrhea the following week - advised to increase the fibre supplement to twice a day. EGD and colon results reviewed with the patient. Denies having any problems after endoscopic procedures Complains of intermittent LLQ cramps associated with constipation - advised to start a fibre supplement Had a new PCP in Dec (Monalisa Dejesus NP) and practice was closed. Now she has opened a new practice in [place] on May 12 and he will set up an appt to see her. Warfarin is managed by [facility] and they do not give prescriptions. Enchilada Maker is Dr Rojas in [place]. Switched to Trulicity and noted abdominal pain and decreased appetite. Constipation is better - has a BM every 2 days. Complains of constipation - has a BM every 4 days with hard stools. ? Doing fine without symptoms - denies fatigue, abdominal distension, black stools or rectal bleeding ? Wt has been stable. ? Abd US results were reviewed with the patient. Taking warfarin 10 mg daily and 5 mg 1 day a week. Interested in establishing care with the Anticoagulation clinic at [facility]. Due for FU labs - would like to go to [facility] for labs ? Treated with Harvoni x 12 weeks for Hepatitis C in 2017 - follow-up hepatitis-C viral load was negative . ? Denies fatigue, jaundice, abdominal distension. ? Denies abdominal pain, dysphagia, heartburn, nausea or vomiting, change in appetite or weight. ? Patient denies change in bowel habits, black stools or rectal bleeding ? Positive family history of colon cancer in his paternal grandfather in his late 70's/early 80's ?LABS IN [employer]?11/2020 done at [facility] and scanned into pt's chart ? 11/17/19 normal CBC with platelet count of 168, INR 2.1, normal LFTs, albumin 4.9. ? Liver fibrosis score of 0.69, liver fibrosis stage F3, necroinflammatory score 0.13 ?IMAGING STUDIES: 11/2023 ABD US SHOWED: Mildly increased hepatic echogenicity which can be seen in the setting of hepatic steatosis or underlying liver disease. No hepatic mass. 11/2022 ABD US SHOWED: Sonographic appearance suggests mild hepatic steatosis. No focal liver lesions seen. ? Borderline splenomegaly. 06/03/21 05/18/23 ABD US WITH ELASTOGRAPHY SHOWED: 1. Hepatomegaly with increased echogenicity consistent with fatty infiltration/hepatocellular disease of other etiology. 2. Liver elastography: Measurements are suggestive of compensated advanced chronic liver disease but need further test for confirmation. ABD US SHOWED: Normal-appearing liver. Echogenic appearing pancreas questionable for fatty infiltration. Right renal cysts and question small right renal stone. 12/08/[address] scan showed: ? IMPRESSION: ? 1. There is hepatic steatosis. ? 2. Previously identified of enhancing right hepatic lobe lesions are now not demonstrated with certainty. No new mass or biliary dilatation is seen. ? 3. Multiple bilateral renal cysts are redemonstrated, consistent with prior ultrasound findings. ? 01/[address] scan showed: ? IMPRESSION: Three peripheral arterial enhancing lesions in the posterior segment of the right lobe of the liver. One of these lesions demonstrates washout. The larger 6 mm lesion is similar to most recent exam ? July 2018 and the 2 adjacent more lateral smaller lesions are similar to earliest CT January 2018. Continued attention on follow-up recommended. Slightly enlarged spleen. Question small stable left ? adrenal nodule. Stable bilateral renal cysts. ENDOSCOPIC STUDIES:? 09/06/22 EGD AND COLONOSCOPY SHOWED: Endoscopy Findings: ESOPHAGUS: GE junction at 36 cms, small hiatal hernia 36 to 38 cms. No varices, esophagitis or Saleem's. STOMACH: Mild portal gastropathy and a few 5-8 mm benign appearing polyps in the body of the stomach - biopsied. Mild gastric erythema with a few superficial erosions - biopsies were obtained. Grade 2 flap valve and no gastric varices on retroflexed examination of the cardia. Colonoscopy Findings: One medium sized hyperplastic polyp removed Moderate diverticulosis seen in the sigmoid colon Moderate hemorrhoids on retroflexed exam. Plan:? Patient has an appointment on 10/19/22 in the GI Clinic with Gary Soliman M.D.. Repeat Colonoscopy interval based on path results - in 3-5 years if polyps are adenomatous and 10 years if polyps are hyperplastic. [facility] Medical History (Updated 04/24/24 @ 09:56 by Gary Soliman MD) Aortic valve insufficiency Mitral valve stenosis, non-rheumatic History of intravenous drug abuse On beta andreas at home Hepatitis C On anticoagulant therapy Cirrhosis Hepatitis C virus infection Surgical History Hx of colonoscopy History of esophagogastroduodenoscopy (EGD) H/O skin graft History of liver biopsy H/O aortic valve replacement Family History Father Alive and well Mother Hx of type 2 diabetes mellitus Social History Alcohol intake: former Year quit: 2017 Substance Use Type: Marijuana Review of Systems Const All systems reviewed & are unremarkable except as noted in HPI and below Physical Exam Vital Signs: Last Vital Signs Pulse 85 11/06/24 08:41 BP 105/70 11/06/24 08:41 BMI result Body Mass Index 28.5 Const General: healthy appearing and no acute distress Nutritional Appearance: overweight Orientation/consciousness: patient oriented x3 Limitations: no limitations HEENT Head: Yes normal to inspection Ears: hearing grossly normal bilaterally Eyes Sclerae: sclerae normal Pupils: Equal, round and reactive pupils present Neck Neck: Yes normal visual inspection Chest Chest palpation & inspection: normal inspection of the chest Resp Effort & Inspection: normal respiratory effort Auscultation: clear to auscultation bilaterally Cardio Palpation: normal PMI Rate: regular rate Rhythm: regular rhythm Heart sounds: S1 normal heart sound present, S2 normal heart sound present and no murmurs GI Palpation (GI): Soft to palpation, nontender and No hepatosplenomegaly present Auscultation: normal bowel sounds Rectal Exam - Male: Yes deferred Skin General skin exam: no rashes or lesions noted Neuro General: patient oriented x3, gait normal and moves all extremities Cranial nerves: Yes Equal, round and reactive pupils present Psych Appearance: grossly normal Mental Status: mental status grossly normal Assessment & Plan Assessment & Plan (1) Alcoholic cirrhosis of liver without ascites: Code(s): K70.30 - Alcoholic cirrhosis of liver without ascites Category: Medical (2) Colon cancer screening: Code(s): Z12.11 - Encounter for screening for malignant neoplasm of colon Category: Medical (3) Chronic constipation: Code(s): K59.09 - Other constipation Category: Medical (4) GERD (gastroesophageal reflux disease): Code(s): K21.9 - Gastro-esophageal reflux disease without esophagitis Category: Medical (5) Nausea: Code(s): R11.0 - Nausea Category: Medical Plan 49 YM with type II diabetes, S/P AVR (aortic valve replacement) followed in GI for compensated cirrhosis likely due to past hepatitis C which was treated in 2016. Patient denies regular EtOH use. Liver fibrosis test showed F3 fibrosis. MELD score is 18 due to INR of 2.7 (pt is on warfarin for aortic valve replacement) Abdominal CT scan in January 2019 showed three small hepatic lesions which were stable. 12/01 no hepatic lesions noted on repeat CT scan. Course and prognosis of cirrhosis was discussed with the patient during his past visit and he was given patient handout from up-to-date on cirrhosis. Pt states he had Hep B immunization several yrs ago. Recent Hep B serologies showed negative Hep B surface and core ab. 08/2022 EGD and colonoscopy were performed and findings as noted above. 04/26/23 Can have hard stools one week and diarrhea the following week - advised to increase the fibre supplement to twice a day. 10/25/23 Complains of ch constipation BM once every 3-4 days with hard stools Taking Senna 1 tab three nights a week and not working very well Pt advised to increase Senna to 2 tabs at bedtime for constipation Gastric emptying study for evaluation of nausea - normal 11/01/24 patient advised to schedule a triple phase CT scan for HCC surveillance (due to limited visualization of the liver on ultrasound) Patient will be referred to [facility] liver transplant [facility] for pre transplant evaluation (MELD score is 18 - higher due to oral anticoagulation with warfarin) FU in 6 months - scheduled 05/07/25 Orders: Orders Comprehensive Met. Panel 11/06/24 K70.30 - Alcoholic cirrhosis of liver without ascites Vitamin D 25-OH Total 11/06/24 K70.30 - Alcoholic cirrhosis of liver without ascites CT liver 3 phase 11/06/24 K74.60 - Unspecified cirrhosis of liver Complete Blood Count no Diff 11/06/24 K70.30 - Alcoholic cirrhosis of liver without ascites Prothrombin Time INR 11/06/24 K70.30 - Alcoholic cirrhosis of liver without ascites Referrals Gastroenterology Referral K70.30 - Alcoholic cirrhosis of liver without ascites Coding Level of Care Code Est Pt Level 4 (91472) Complex EM visit Add On G2211 Diagnoses Alcoholic cirrhosis of liver without ascites K70.30 Colon cancer screening Z12.11 Chronic constipation K59.09 GERD (gastroesophageal reflux disease) K21.9 Nausea R11.0 Time Spent (min) 21
[2024-11-06 08:41] VITALS: BP 105/70; PULSE 85; BMI 28.5
== END 2024-11-06 14:05 | disposition home or self-care (01) ==
PROVIDERS: PCP Student in an Organized Health Care Education/Training Program; Visit Provider Internal Medicine Gastroenterology
DX: K70.30 Alcoholic cirrhosis of liver without ascites (principal); K59.09 Other constipation; K21.9 Gastro-esophageal reflux disease without esophagitis; R11.0 Nausea
CPT/HCPCS: 99214; G2211

== ENCOUNTER → 2024-11-06 08:24 | Outpatient (BNVA) | payer OTHER, SELFPAY | PROVIDERS: PCP Student in an Organized Health Care Education/Training Program; Visit Provider Internal Medicine Gastroenterology | DX: K70.30 Alcoholic cirrhosis of liver without ascites (principal); K59.09 Other constipation; K21.9 Gastro-esophageal reflux disease without esophagitis; R11.0 Nausea; Z86.19 Personal history of other infectious and parasitic diseases | CPT/HCPCS: 99212 ==

== ENCOUNTER 2024-11-14 09:21 | Outpatient (REF) | payer OTHER, SELFPAY ==
[2024-11-14 10:36] LABS: Hematocrit 46.7 % (42.0-52.0); Hemoglobin 15.6 g/dl (14.0-18.0); Mean Corpuscular HGB Conc 33.4 g/dl (31.0-36.0); Mean Corpuscular Hemoglobin 28.9 pg (27.0-33.0); Mean Corpuscular Volume 86.6 fL (80.0-98.0); Mean Platelet Volume 10.4 fL (9.4-12.4); Platelet Count 174 X10*3/uL (160-400); Red Blood Count 5.39 X10*6/uL (4.60-5.80); Red Cell Distribution Width 13.6 % (11.0-16.0); White Blood Count 9.3 X10*3/uL (4.8-10.8)
[2024-11-14 10:43] LABS: INTERNATIONAL NORM RATIO 2.8 (0.9-1.1); Prothrombin Time 32.5 SEC (10.9-12.4)
[2024-11-14 11:22] LABS: Alanine Aminotransferase 23 U/L (0-40); Albumin Level 4.4 g/dL (3.5-5.0); Alkaline Phosphatase 61 U/L (39-117); Anion Gap 13 (12-20); Aspartate Amino Transferase 17 U/L (5-37); Bilirubin Total 0.3 mg/dL (0.0-1.0); Blood Urea Nitrogen 23 mg/dL (9-16); Calcium 9.2 mg/dL (8.4-10.2); Carbon Dioxide 25 mmol/L (22-29); Chloride 106 mmol/L (96-108); Estimated Glomerular Filt Rate > 60; Glucose Random 175 mg/dL (60-115); Potassium 4.3 mmol/L (3.3-5.1); Sodium 140 mmol/L (135-145); Total Protein 7.4 g/dL (6.5-8.0)
[2024-11-14 11:28] LABS: Vitamin D 25-OH Total 45.9 ng/mL (>30)
== END 2024-11-14 09:22 | disposition home or self-care (01) ==
LOC: HO.LAB 09:21
PROVIDERS: PCP Student in an Organized Health Care Education/Training Program; Visit Provider Internal Medicine Gastroenterology
DX: K70.30 Alcoholic cirrhosis of liver without ascites (principal); Z79.01 Long term (current) use of anticoagulants
CPT/HCPCS: 36415; 80053; 82306; 85027; 85610; 99211

== ENCOUNTER 2024-11-14 09:29 | Outpatient (AMB) | payer OTHER, SELFPAY ==
[2024-11-14 09:47] LABS: Prothrombin Time Whole Bld POC 39.4 sec (11.1-13.5); ~PT, ~INR - Anti Coag Clinic 3.3 (0.9-1.1)
--- NOTE | 2024-11-14 09:55 | MHC.OFFVISCO ---
Intake Intake Visit Reasons: Anticoagulation Allergies No Known Allergies Allergy (Verified 11/14/24 09:42) Medication List - Last Reconciled 11/14/24 by Hawa Diaz RN blood sugar diagnostic As directed bupropion HCl XL 300 mg PO DAILY buspirone 15 mg PO BID clonazepam 1 mg PO BEDTIME PRN cyanocobalamin (vitamin B-12) PO DAILY dulaglutide (Trulicity) mg subcut metformin 500 mg PO BID metoprolol succinate ER 50 mg PO DAILY ondansetron 4 mg PO Q8H PRN prazosin 1 mg PO BEDTIME psyllium husk (with sugar) 3.4 gram/7 gram (Daily Fiber (psyllium-sucrose)) 1 tsp PO BID 90 days sennosides-docusate sodium 8.6-50 mg (Senna Plus) 2 tabs PO BEDTIME sertraline mg PO simvastatin 40 mg PO BEDTIME tadalafil 10 mg PO DAILY trazodone 150 mg PO BEDTIME warfarin mg See Protocol PO Nursing Note INR: 3.3 in therapeutic range of 2.5-3.5 Medications and supplements reviewed No changes in health, diet, medications, or supplements, Denies any signs and symptoms of bleeding or bruising or clotting. Bleeding, bruising, clotting discussed Nutritional guidance given Dose: 8mg daily F/U INR: 5 weeks Patient verbalizes understanding of instructions given Anti-Coag Initial Assessment Social Hx alcohol intake: former Alcohol intake frequency: holidays/special occasions only Coding Level of Care Code Est Patient Level 1 Diagnoses Current use of anticoagulant therapy Z79.01 Results AMB INR Fingerstick AMB INR Fingerstick 3.3 Last Edit by Hawa Diaz RN on 11/14/24 09:48 interface delay Assessment & Plan Assessment & Plan (1) Current use of anticoagulant therapy: Code(s): Z79.01 - long term care social worker (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
== END 2024-11-14 09:56 | disposition home or self-care (01) ==
LOC: HO.ACS 09:29
PROVIDERS: PCP Student in an Organized Health Care Education/Training Program; Visit Provider Internal Medicine
DX: Z79.01 Long term (current) use of anticoagulants (principal)

== ENCOUNTER 2024-11-25 08:30 | Outpatient (REF) | payer OTHER, SELFPAY ==
--- NOTE | ~2024-11-25 | US_ITS ---
CLINICAL HISTORY: ALCOHOLIC CIRRHOSIS OF LIVER WITHOUT ASCITES SCREEN FOR HCC ASCITES US abdomen limited Comparison: None Findings: The visualized pancreas is normal. The aorta and inferior vena cava are normal caliber. The liver is enlarged at 19.5 cm and heterogeneously echogenic. There is no intrahepatic bile duct dilatation. The common duct is four mm in diameter. The gallbladder is normal. There is no sonographic Duong sign. The main portal vein is antegrade. The right kidney is 12.8 cm in length. 6.5 cm cyst. No suspicious lesion. No ascites. IMPRESSION: Heterogeneously echogenic hepatic parenchyma without focal lesion. Mild hepatomegaly. No ascites. This document has been electronically signed by: Kobi Gore MD on 11/26/2024 12:06:22
== END 2024-11-25 08:31 | disposition home or self-care (01) ==
LOC: HO.HMGCX 08:30
PROVIDERS: PCP Student in an Organized Health Care Education/Training Program; Visit Provider Internal Medicine Gastroenterology
DX: K70.30 Alcoholic cirrhosis of liver without ascites (principal)
CPT/HCPCS: 76705

== ENCOUNTER → 2024-11-25 08:32 | Outpatient (BNV) | payer OTHER, SELFPAY | PROVIDERS: PCP Student in an Organized Health Care Education/Training Program; Visit Provider Radiology Vascular & Interventional Radiology | DX: K70.30 Alcoholic cirrhosis of liver without ascites (principal) | CPT/HCPCS: 76705 ==

== ENCOUNTER 2024-12-05 09:11 | Outpatient (REF) | payer OTHER, SELFPAY ==
[2024-12-05 12:31] LABS: Blood Urea Nitrogen 26 mg/dL (9-16); Estimated Glomerular Filt Rate > 60
== END 2024-12-05 09:12 | disposition home or self-care (01) ==
LOC: HO.LAB 09:11
PROVIDERS: PCP Student in an Organized Health Care Education/Training Program; Visit Provider Internal Medicine Gastroenterology
DX: K70.30 Alcoholic cirrhosis of liver without ascites (principal)
CPT/HCPCS: 36415; 82565; 84520

== ENCOUNTER 2024-12-26 09:27 | Outpatient (AMB) | payer OTHER, SELFPAY ==
--- NOTE | 2024-12-26 09:36 | MHC.OFFVISCO ---
Intake Intake Visit Reasons: Anticoagulation Allergies No Known Allergies Allergy (Verified 12/26/24 09:32) Medication List - Last Reconciled 12/26/24 by Alba Farris RN blood sugar diagnostic As directed bupropion HCl XL 300 mg PO DAILY buspirone 15 mg PO BID clonazepam 1 mg PO BEDTIME PRN cyanocobalamin (vitamin B-12) PO DAILY dulaglutide (Trulicity) mg subcut metformin 500 mg PO BID metoprolol succinate ER 50 mg PO DAILY ondansetron 4 mg PO Q8H PRN prazosin 1 mg PO BEDTIME psyllium husk (with sugar) 3.4 gram/7 gram (Daily Fiber (psyllium-sucrose)) 1 tsp PO BID 90 days sennosides-docusate sodium 8.6-50 mg (Senna Plus) 2 tabs PO BEDTIME sertraline mg PO simvastatin 40 mg PO BEDTIME tadalafil 10 mg PO DAILY trazodone 150 mg PO BEDTIME warfarin mg See Protocol PO Nursing Note INR 3.7-?? out of therapeutic range of 2.5-3.5 Medications and supplements reviewed Patient status: no c.o, denies etoh Medications or supplements: no changes Diet: same Denies any signs and symptoms of bleeding or clotting or unusual bruising Bleeding, bruising, clotting discussed Nutritional guidance given: eat greens to lower Dose: 6mg today only, then 8mg x 7 F/U INR Date : pt req 3 weeks? Patient verbalizing understanding of instructions given. Anti-Coag Initial Assessment Social Hx alcohol intake: former Alcohol intake frequency: holidays/special occasions only Coding Level of Care Code Est Patient Level 1 Diagnoses Current use of anticoagulant therapy Z79.01 Results AMB INR Fingerstick AMB INR Fingerstick 3.7 Last Edit by Alba Farris RN on 12/26/24 09:39 interface delay Assessment & Plan Assessment & Plan (1) Current use of anticoagulant therapy: Code(s): Z79.01 - snf (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
[2024-12-27 09:33] LABS: Prothrombin Time Whole Bld POC 44.3 sec (11.1-13.5); ~PT, ~INR - Anti Coag Clinic 3.7 (0.9-1.1)
== END 2024-12-26 09:44 | disposition home or self-care (01) ==
LOC: HO.ACS 09:27
PROVIDERS: PCP Student in an Organized Health Care Education/Training Program; Visit Provider Internal Medicine
DX: Z79.01 Long term (current) use of anticoagulants (principal)

== ENCOUNTER → 2024-12-26 09:27 | Outpatient (BNVA) | payer OTHER, SELFPAY | PROVIDERS: PCP Student in an Organized Health Care Education/Training Program; Visit Provider Internal Medicine | DX: Z95.2 Presence of prosthetic heart valve (principal); Z79.01 Long term (current) use of anticoagulants; Z51.81 Encounter for therapeutic drug level monitoring | CPT/HCPCS: 85610; 99211 ==

== ENCOUNTER 2024-12-30 08:22 | Outpatient (REF) | payer OTHER, SELFPAY ==
--- NOTE | ~2024-12-30 | CT_ITS ---
CLINICAL HISTORY: K74.60 - Unspecified cirrhosis of liver CT abdomen with and without contrast Comparison: None Findings: Mild bibasilar atelectasis and scarring of the imaged lung bases. No hypervascular liver mass by CT with liver partially imaged on the arterial phase imaging. Mild liver surface nodularity as can be seen with reported cirrhosis. Mild fat deposition of the liver noted adjacent to the falciform ligament. Mild/borderline splenomegaly. Mild adrenal hyperplasia. Mild-moderate volume loss of the pancreas. Gallbladder is unremarkable for CT. No suspicious features of the exophytic 5 cm cyst of the right kidney. No hydronephrosis. No suspicious features of the additional bilateral small renal cystic lesions. Nonenlarged lymphadenopathy. No small bowel obstruction. Imaged appendix is within normal limits. Severe stool burden in the [id number]. Calcified and noncalcified plaque involving the imaged aorta and its branches. No free intraperitoneal air in the imaged abdomen. Mild vertebral height loss of the T12 appears old/chronic and accentuated by upper endplate Schmorl's node. Facet arthropathy is noted in the [id number]. IMPRESSION: 1. No hyper vascular liver mass by CT. 2. Borderline splenomegaly. 3. Severe stool burden in the [id number]. No small bowel obstruction in the [id number]. This document has been electronically signed by: Gomez Ponce MD on 12/31/2024 03:01:29
--- OUTSIDE RECORDS SUMMARY | 2024-12-30 08:36 | XMS_ITS | Continuity of Care Document ---
Author Organization [facility] (formerly [facility]) Adult Address [address] [place] [id number] Care Team Providers Care Envelope Maker Name Role Phone Sean ALEMAN, Vandana Timmons Primary Care P scotty Encounter [facility] Date(s): 11/28/24 - 12/28/[address] [id number] [[email or web address]] Encounter Type: Triage Allergies, Adverse Reactions, Alerts [...] vaccine, inactivated 1 02/24/06 Gi r[facility] SARS-CoV-2(COVID-19)mRNA-LNP vac([id number]) 07/31/24 Recorded tetanus/diphtheria/pertussis, acel(Tdap) 2 01/18/23 Given [id number] bivalent booster vax 10/26/22 Recorded SARS-CoV-2 (COVID-19) mRNA-1273 vaccine 09/14/21 R ecorded SARS-CoV-2 (COVID-19) mRNA-1273 vaccine 03/10/21 R ecorded SARS-CoV-2 (COVID-19) mRNA-1273 vaccine 02/09/21 R ecorded hepatitis B adult vaccine 11/17/19 Recorded pneumococcal 23-valent vaccine 11/23/17 Recorded Pneumococcal Vaccine (oldterm) 3 02/24/06 Given 1Result Comment: [id number] exp 02/25/06 2Result Comment: [facility] [id number] 3Result Comment: [id number] exp 04/13/07 Medications busPIRone 15 mg oral tablet TAKE 1 TABLET BY MOUTH TWICE A DAY DIRECTED FOR ANXIETY Start Date: 05/01/24 Status: Ordered Repeat number: 1 Cialis 10 mg oral tablet 1 tablet = 10 mg, By Mouth, Daily, 1 hour before sexual activity, # 30 tablet, 0 Refills, Maintenance, 07/06/23 12:46:00 PM EDT, Tablet, [id number], Partial fill upon patient request if the [...] 6 Jardiance 25 mg oral tablet 1 tablet, By Mouth, Daily in AM, # 30 tablet, 5 Refills, Maintenance, 12/11/24 3:59:00 PM EST, [id number], 182, cm, 07/03/24 9:35:00 EDT, Height Start Date: 12/11/24 Status: Ordered Quantity: 30.0 Unit: tablet Repeat number: 1 metFORMIN 500 mg oral tablet 2 tablet = 1,000 mg, By Mouth, 2 times a day, with meals, # 360 tablet, 3 Refills, Maintenance, 12/04/24 9:27:00 AM EST, Tablet, [id number], Partial fill upon patient request if the prescription is for a schedule II opioid drug., 182, cm, 07/03/24 9:35:00 EDT, Height Start Date: 12/04/24 Stop Date: 11/29/25 Status: Ordered Quantity: 360.0 Unit: tablet Repeat number: 4 Metoprolol Succinate ER 50 mg oral tablet, extended release 1 tablet, By Mouth, Daily, # 90 tablet, 1 Refills, Maintenance, 04/02/24 9:23:00 AM EDT, [id number], 182, cm, 10/31/23 10:55:00 EST, Height Start [...] 12:05:00 PM EDT, Route to Pharmacy Electronically, [id number], 182, cm, 07/03/24 9:35:00 EDT, Height Start Date: 08/14/24 Status: Ordered Quantity: 90.0 Unit: tablet Repeat number: 1 Trulicity Pen 0.75 mg/0.5 mL subcutaneous solution See Instructions, INJECT 0.5ML SUBCUTANEOUS EVERY WEEK ROTATE INJECTION SITES, # 2 Unknown, 5 Refills, Maintenance, 07/04/24 1:36:00 PM EDT, [id number], 182, cm, 07/03/24 9:35:00 EDT, Height Start Date: 07/04/24 Status: Ordered Quantity: 2.0 Unit: Unknown Repeat number: 1 warfarin 4 mg oral tablet 1 TO 2 TABLETS, By Mouth, Daily, DIRECTED., # 60 tablet, 5 Refills, Maintenance, 07/24/24 2:52:00PM EDT, [id number], 182, cm, 07/03/24 9:35:00 EDT, Height Start [...] Team Personnel Name: Manjinder Pastrana RN Position: [facility] RN Member Role: Primary Care Nurse Name: Vandana Zamudio Position: [facility] PCO Associate Professional Member Role: PCP Address: [address] [place] [address]. [address] Telecom: Name: Grisel Hardy RN Position: [facility] RN Member Role: Primary Care Nurse Care Team Related Persons Name: ANASTACIO MALIK Name: KATHY MALIK Name: BUCK JANE Insurance Providers Guarantor name: STACEY MALIK Health Plan Information #: 1 Payer: [facility] Member Number: NA Policy Number: NA Group Number: NA
[2024-12-30] MEDS: iohexoL 350 MG/ML 100 ML INFUS..BTL IV (09:09)
== END 2024-12-30 08:23 | disposition home or self-care (01) ==
LOC: HO.CT 08:22
PROVIDERS: PCP Physician Assistant Medical; Visit Provider Internal Medicine Gastroenterology
DX: K74.60 Unspecified cirrhosis of liver (principal)
CPT/HCPCS: 74170; Q9967

== ENCOUNTER → 2024-12-30 08:23 | Outpatient (BNV) | payer OTHER, SELFPAY | PROVIDERS: PCP Physician Assistant Medical; Visit Provider Radiology Neuroradiology | DX: K74.60 Unspecified cirrhosis of liver (principal) | CPT/HCPCS: 74170 ==

== ENCOUNTER → 2025-01-16 09:19 | Outpatient (BNVA) | payer OTHER, SELFPAY | PROVIDERS: PCP Physician Assistant Medical; Visit Provider Internal Medicine | DX: Z95.2 Presence of prosthetic heart valve (principal); Z79.01 Long term (current) use of anticoagulants; Z51.81 Encounter for therapeutic drug level monitoring | CPT/HCPCS: 85610 ==

== ENCOUNTER 2025-02-13 09:20 | Outpatient (AMB) | payer OTHER, SELFPAY ==
[2025-02-13 09:27] LABS: Prothrombin Time Whole Bld POC 46.7 sec (11.1-13.5); ~PT, ~INR - Anti Coag Clinic 3.9 (0.9-1.1)
--- NOTE | 2025-02-13 09:33 | MHC.OFFVISCO ---
Intake Intake Visit Reasons: Anticoagulation Allergies No Known Allergies Allergy (Verified 02/13/25 09:21) Medication List - Last Reconciled 02/13/25 by Hawa Diaz RN amoxicillin 500 mg PO BID blood sugar diagnostic As directed bupropion HCl XL 300 mg PO DAILY buspirone 15 mg PO BID clonazepam 1 mg PO BEDTIME PRN cyanocobalamin (vitamin B-12) PO DAILY dulaglutide (Trulicity) mg subcut empagliflozin 25 mg PO DAILY gabapentin 300 mg PO TID metformin 500 mg PO BID metoprolol succinate ER 50 mg PO DAILY ondansetron 4 mg PO Q8H PRN prazosin 1 mg PO BEDTIME psyllium husk (with sugar) 3.4 gram/7 gram (Daily Fiber (psyllium-sucrose)) 1 tsp PO BID 90 days sennosides-docusate sodium 8.6-50 mg (Senna Plus) 2 tabs PO BEDTIME sertraline mg PO simvastatin 40 mg PO BEDTIME tadalafil 10 mg PO DAILY trazodone 150 mg PO BEDTIME warfarin mg See Protocol PO Nursing Note INR: 3.9?out of therapeutic range of 2.5-3.5 Medications and supplements reviewed Patient status: feels well Medications or supplements: no changes Diet: usual diet for pt Denies any signs and symptoms of bleeding or clotting or unusual bruising Bleeding, bruising, clotting discussed Nutritional guidance given: to have a serving of greens today. Pt states he will have spinach or cabbage. Dose: 8mg daily F/U INR Date: 3 weeks? Patient verbalizing understanding of instructions given. Anti-Coag Initial Assessment Social Hx alcohol intake: former Alcohol intake frequency: holidays/special occasions only Coding Level of Care Code Est Patient Level 1 Diagnoses Current use of anticoagulant therapy Z79.01 Results AMB INR Fingerstick AMB INR Fingerstick 3.9 Last Edit by Hawa Diaz RN on 02/13/25 09:31 interface delay Assessment & Plan Assessment & Plan (1) Current use of anticoagulant therapy: Code(s): Z79.01 - custodial (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
--- OUTSIDE RECORDS SUMMARY | 2025-02-13 10:06 | XMS_ITS | Continuity of Care Document ---
Author Organization [facility] Adult Address [address] [place] [address]- Care Team Providers Care Floral Design Teacher Name Role Phone Sean ALEMAN, Vandana Timmons Primary Care P scotty Encounter [facility] Date(s): 01/11/25 - 02/10/[address] [address] Encounter Type: Triage Allergies, Adverse [...] vaccine, inactivated 1 02/24/06 Gi rito SARS-CoV-2(COVID-19)mRNA-LNP vac(did705) 07/31/24 Recorded tetanus/diphtheria/pertussis, acel(Tdap) 2 01/18/23 Given [id number] bivalent booster vax 10/26/22 Recorded SARS-CoV-2 (COVID-19) mRNA-1273 vaccine 09/14/21 R ecorded SARS-CoV-2 (COVID-19) mRNA-1273 vaccine 03/10/21 R ecorded SARS-CoV-2 (COVID-19) mRNA-1273 vaccine 02/09/21 R ecorded hepatitis B adult vaccine 11/17/19 Recorded pneumococcal 23-valent vaccine 11/23/17 Recorded Pneumococcal Vaccine (oldterm) 3 02/24/06 Given 1Result Comment: [id number] exp 02/25/06 2Result Comment: [facility] 60292-398-21 3Result Comment: [id number] exp 04/13/07 Medications busPIRone 15 mg oral tablet TAKE 1 TABLET BY MOUTH TWICE A DAY DIRECTED FOR ANXIETY Start Date: 05/01/24 Status: Ordered Repeat number: 1 Cialis 10 mg oral tablet 1 tablet = 10 mg, By Mouth, Daily, 1 hour before sexual activity, # 30 tablet, 0 Refills, Maintenance, 07/06/23 12:46:00 PM EDT, Tablet, [id number], Partial fill upon patient request if the [...] Maintenance, 12/11/24 3:59:00 PM EST, [facility], 182, cm, 07/03/24 9:35:00 EDT, Height Start Date: 12/11/24 Status: Ordered Quantity: 30.0 Unit: tablet Repeat number: 1 metFORMIN 500 mg oral tablet 2 tablet = 1,000 mg, By Mouth, 2 times a day, with meals, # 360 tablet, 3 Refills, Maintenance, 12/04/24 9:27:00 AM EST, Tablet, [facility]/pharmacy #[id number], Partial fill upon patient request if the prescription is for a schedule II opioid drug., 182, cm, 07/03/24 9:35:00 EDT, Height Start Date: 12/04/24 Stop Date: 11/29/25 Status: Ordered Quantity: 360.0 Unit: tablet Repeat number: 4 Metoprolol Succinate ER 25 mg oral tablet, extended release TAKE 1 TABLET BY MOUTH EVERY DAY FOR 90 DAYS Start Date: 01/07/25 Status: Ordered Repeat number: 1 ondansetron 4 mg oral [...] 12:05:00 PM EDT, Route to Pharmacy Electronically, [facility], 182, cm, 07/03/24 9:35:00 EDT, Height Start Date: 08/14/24 Status: Ordered Quantity: 90.0 Unit: tablet Repeat number: 1 Trulicity Pen 1.5 mg/0.5 mL subcutaneous solution 0.5 mL = 1.5 mg, Subcutaneous Injection, Every week, rotate injection sites, # 2 mL, 2 Refills, Maintenance, 02/04/25 4:19:00 PM EDT, Solution, [facility]/pharmacy #[id number], Partial fill upon patient request ifthe prescription is for a schedule II opioid drug., 182, cm, 01/07/25 9:19:00 EST, Height Start Date: 02/04/25 Status: Ordered Quantity: 2.0 Unit: mL Repeat number: 3 warfarin 4 mg oral tablet 1 TO 2 TABLETS, By Mouth, Daily, DIRECTED., # 60 tablet, 5 Refills, Maintenance, 01/20/25 4:42:00PM EDT, [id number], 182, cm, 01/07/25 9:19:00 EST, Height Start Date: 01/20/25 Status: Ordered Quantity: 60.0 Unit: tablet Repeat number: 6 Problem List Condition Confirmation Course Effective Dates [...] Team Personnel Name: Manjinder Pastrana RN Position: [facility] RN Member Role: Primary Care Nurse Name: Sean ALEMAN, Vandana Timmons Position: [facility] PCO Associate Professional Member Role: PCP Address: [address] [place] [address]. [address] [place], [place] [address] Telecom: Name: Grisel Hardy RN Position: [facility] RN Member Role: Primary Care Nurse Care Team Related Persons Name: ANASTACIO MALIK Name: KATHY MALIK Name: BUCK JANE Insurance Providers Guarantor name: STACEY MALIK Health Plan Information #: 1 Payer: [facility] Member Number: NA Policy Number: NA Group Number: NA
--- OUTSIDE RECORDS SUMMARY | 2025-02-13 10:06 | XMS_ITS | Continuity of Care Document ---
Author Organization [facility] Adult Address [address] [place] [address]- Care Team Providers Care Shoe Repairman Name Role Phone Sean ALEMAN, Vandana Timmons Primary Care P scotty Encounter [facility] Date(s): 01/08/25 - 02/07/[address] [address] Encounter Type: Triage Allergies, Adverse Reactions, Alerts [...] vaccine, inactivated 1 02/24/06 Gi rito SARS-CoV-2(COVID-19)mRNA-LNP vac([id number]) 07/31/24 Recorded tetanus/diphtheria/pertussis, acel(Tdap) 2 01/18/23 Given [id number] bivalent booster vax 10/26/22 Recorded SARS-CoV-2 (COVID-19) mRNA-1273 vaccine 09/14/21 R ecorded SARS-CoV-2 (COVID-19) mRNA-1273 vaccine 03/10/21 R ecorded SARS-CoV-2 (COVID-19) mRNA-1273 vaccine 02/09/21 R ecorded hepatitis B adult vaccine 11/17/19 Recorded pneumococcal 23-valent vaccine 11/23/17 Recorded Pneumococcal Vaccine (oldterm) 3 02/24/06 Given 1Result Comment: [id number] exp 02/25/06 2Result Comment: [facility] [id number] 3Result Comment: [id number] exp 04/13/07 Medications busPIRone 15 mg oral [...] Maintenance, 12/11/24 3:59:00 PM EST, [facility], 182, cm, 07/03/24 9:35:00 EDT, Height Start Date: 12/11/24 Status: Ordered Quantity: 30.0 Unit: tablet Repeat number: 1 metFORMIN 500 mg oral tablet 2 tablet = 1,000 mg, By Mouth, 2 times a day, with meals, # 360 tablet, 3 Refills, Maintenance, 12/04/24 9:27:00 AM EST, Tablet, [facility]/pharm[facility] #2339, Partial fill upon patient request if [...] 12:05:00 PM EDT, Route to Pharmacy Electronically, [facility] 54820, 182, cm, 07/03/24 9:35:00 EDT, Height Start Date: 08/14/24 Status: Ordered Quantity: 90.0 Unit: tablet Repeat number: 1 Trulicity Pen 1.5 mg/0.5 mL subcutaneous solution 0.5 mL = 1.5 mg, Subcutaneous Injection, Every week, rotate injection sites, # 2 mL, 2 Refills, Maintenance, 02/04/25 4:19:00 PM EDT, Solution, [facility]/pharmacy #[id number], Partial fill upon patient request ifthe [...] Team Personnel Name: Manjinder Pastrana RN Position: [facility] RN Member Role: Primary Care Nurse Name: Sean ALEMAN, Vandana Timmons Position: [facility] PCO Associate Professional Member Role: PCP Address: [address] [place] [address]. [address] [place], [place] [address] Telecom: Name: Grisel Hardy RN Position: [facility] RN Member Role: Primary Care Nurse Care Team Related Persons Name: ANASTACIO MALIK Name: KATHY MALIK Name: BUCK JANE Insurance Providers Guarantor name: STACEY MALIK Health Plan Information #: 1 Payer: [facility] Member Number: NA Policy Number: NA Group Number: NA
== END 2025-02-13 09:35 | disposition home or self-care (01) ==
LOC: HO.ACS 09:20
PROVIDERS: PCP Physician Assistant Medical; Visit Provider Internal Medicine Medical Oncology
DX: Z79.01 Long term (current) use of anticoagulants (principal)

== ENCOUNTER → 2025-02-13 09:20 | Outpatient (BNVA) | payer OTHER, SELFPAY | PROVIDERS: PCP Physician Assistant Medical; Visit Provider Internal Medicine Medical Oncology | DX: Z95.2 Presence of prosthetic heart valve (principal); Z51.81 Encounter for therapeutic drug level monitoring; Z79.01 Long term (current) use of anticoagulants | CPT/HCPCS: 85610; 99211 ==

== ENCOUNTER 2025-03-06 09:19 | Outpatient (AMB) | payer OTHER, SELFPAY ==
--- NOTE | 2025-03-06 09:36 | MHC.OFFVISCO ---
Intake Intake Visit Reasons: Anticoagulation Allergies No Known Allergies Allergy (Verified 03/06/25 09:31) Medication List - Last Reconciled 03/06/25 by Alba Farris RN amoxicillin 500 mg PO BID blood sugar diagnostic As directed bupropion HCl XL 300 mg PO DAILY buspirone 15 mg PO BID clonazepam 1 mg PO BEDTIME PRN cyanocobalamin (vitamin B-12) PO DAILY dulaglutide (Trulicity) mg subcut empagliflozin 25 mg PO DAILY gabapentin 300 mg PO TID metformin 500 mg PO BID metoprolol succinate ER 50 mg PO DAILY ondansetron 4 mg PO Q8H PRN prazosin 1 mg PO BEDTIME psyllium husk (with sugar) 3.4 gram/7 gram (Daily Fiber (psyllium-sucrose)) 1 tsp PO BID 90 days sennosides-docusate sodium 8.6-50 mg (Senna Plus) 2 tabs PO BEDTIME sertraline mg PO simvastatin 40 mg PO BEDTIME tadalafil 10 mg PO DAILY trazodone 150 mg PO BEDTIME warfarin mg See Protocol PO Nursing Note INR 2.4-? out of therapeutic range of 2.5-3.5 Medications and supplements reviewed Patient status: no c.o, denies missed dose,increased exercise Medications or supplements: no changes Diet: same Denies any signs and symptoms of bleeding or clotting or unusual bruising Bleeding, bruising, clotting discussed Nutritional guidance given: no greens for 2 days, eat a red today Dose: 10mg today then 8mg x 7 F/U INR Date : pt ref earlier appt than 3 weeks? Patient verbalizing understanding of instructions given. Anti-Coag Initial Assessment Social Hx alcohol intake: former Alcohol intake frequency: holidays/special occasions only Coding Level of Care Code Est Patient Level 1 Diagnoses Current use of anticoagulant therapy Z79.01 Assessment & Plan Assessment & Plan (1) Current use of anticoagulant therapy: Code(s): Z79.01 - [facility] (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
[2025-03-06 09:37] LABS: Prothrombin Time Whole Bld POC 29.3 sec (11.1-13.5); ~PT, ~INR - Anti Coag Clinic 2.4 (0.9-1.1)
== END 2025-03-06 09:43 | disposition home or self-care (01) ==
LOC: HO.ACS 09:19
PROVIDERS: PCP Physician Assistant Medical; Visit Provider Internal Medicine Medical Oncology
DX: Z79.01 Long term (current) use of anticoagulants (principal)

== ENCOUNTER → 2025-03-06 09:19 | Outpatient (BNVA) | payer OTHER, SELFPAY | PROVIDERS: PCP Physician Assistant Medical; Visit Provider Internal Medicine Medical Oncology | DX: Z95.2 Presence of prosthetic heart valve (principal); Z79.01 Long term (current) use of anticoagulants; Z51.81 Encounter for therapeutic drug level monitoring | CPT/HCPCS: 85610; 99211 ==

== ENCOUNTER 2025-03-27 09:24 | Outpatient (AMB) | payer OTHER, SELFPAY ==
[2025-03-27 09:32] LABS: Prothrombin Time Whole Bld POC 34.1 sec (11.1-13.5); ~PT, ~INR - Anti Coag Clinic 2.8 (0.9-1.1)
--- NOTE | 2025-03-27 09:35 | MHC.OFFVISCO ---
Intake Intake Visit Reasons: Anticoagulation Allergies No Known Allergies Allergy (Verified 03/27/25 09:27) Medication List - Last Reconciled 03/27/25 by Hawa Diaz RN amoxicillin 500 mg PO BID blood sugar diagnostic As directed bupropion HCl XL 300 mg PO DAILY buspirone 15 mg PO BID clonazepam 1 mg PO BEDTIME PRN cyanocobalamin (vitamin B-12) PO DAILY dulaglutide (Trulicity) mg subcut empagliflozin 25 mg PO DAILY gabapentin 300 mg PO TID metformin 500 mg PO BID metoprolol succinate ER 50 mg PO DAILY ondansetron 4 mg PO Q8H PRN prazosin 1 mg PO BEDTIME psyllium husk (with sugar) 3.4 gram/7 gram (Daily Fiber (psyllium-sucrose)) 1 tsp PO BID 90 days sennosides-docusate sodium 8.6-50 mg (Senna Plus) 2 tabs PO BEDTIME sertraline mg PO simvastatin 40 mg PO BEDTIME tadalafil 10 mg PO DAILY trazodone 150 mg PO BEDTIME warfarin mg See Protocol PO Nursing Note INR: 2.8 in therapeutic range of 2.5-3.5 Medications and supplements reviewed No changes in health, diet, medications, or supplements, Denies any signs and symptoms of bleeding or bruising or clotting. 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
== END 2025-03-27 09:37 | disposition home or self-care (01) ==
LOC: HO.ACS 09:24
PROVIDERS: PCP Physician Assistant Medical; Visit Provider Internal Medicine Medical Oncology
DX: Z79.01 Long term (current) use of anticoagulants (principal)

== ENCOUNTER → 2025-03-27 09:24 | Outpatient (BNVA) | payer OTHER, SELFPAY | PROVIDERS: PCP Physician Assistant Medical; Visit Provider Internal Medicine Medical Oncology | DX: Z95.2 Presence of prosthetic heart valve (principal); Z79.01 Long term (current) use of anticoagulants; Z51.81 Encounter for therapeutic drug level monitoring | CPT/HCPCS: 85610; 99211 ==

== ENCOUNTER 2025-04-24 09:22 | Outpatient (AMB) | payer OTHER, SELFPAY ==
--- NOTE | 2025-04-24 09:28 | MHC.OFFVISCO ---
Intake Intake Visit Reasons: Anticoagulation Allergies No Known Allergies Allergy (Verified 04/24/25 09:24) Medication List - Last Reconciled 04/24/25 by Hawa Diaz RN amoxicillin 500 mg PO BID blood sugar diagnostic As directed bupropion HCl XL 300 mg PO DAILY buspirone 15 mg PO BID clonazepam 1 mg PO BEDTIME PRN cyanocobalamin (vitamin B-12) PO DAILY dulaglutide (Trulicity) mg subcut empagliflozin 25 mg PO DAILY gabapentin 300 mg PO TID metformin 500 mg PO BID metoprolol succinate ER 50 mg PO DAILY ondansetron 4 mg PO Q8H PRN 45 days prazosin 1 mg PO BEDTIME psyllium husk (with sugar) 3.4 gram/7 gram (Daily Fiber (psyllium-sucrose)) 1 tsp PO BID 90 days sennosides-docusate sodium 8.6-50 mg (Senna Plus) 2 tabs PO BEDTIME sertraline mg PO simvastatin 40 mg PO BEDTIME tadalafil 10 mg PO DAILY trazodone 150 mg PO BEDTIME warfarin mg See Protocol PO Nursing Note INR: 2.8 in therapeutic range of 2.5-3.5 Medications and supplements reviewed No changes in health, diet, medications, or supplements, Denies any signs and symptoms of bleeding or bruising or clotting. Bleeding, bruising, clotting discussed Nutritional guidance given Dose: 8mg daily F/U INR: 4 weeks Patient verbalizes understanding of instructions given Anti-Coag Initial Assessment Social Hx alcohol intake: former Alcohol intake frequency: holidays/special occasions only Questionnaires HAS-BLED Does the patient had uncontrolled Hypertension?: No Does the patient have renal disease?: No Does the patient have liver disease?: Yes Does the patient have a history of stroke?: No Has the patient had major bleeding or predisposition to bleeding?: No Does the patient have labile INRs?: No Is the patient over 65 years of age?: No Is the patient on medications that gives them a predisposition to bleeding?: Yes Does the patient use alcohol?: No HAS-BLED Score: 2 CHADSVASC Age: <65 Gender: Male Does the patient have a history of CHF?: No Does the patient have a history of Hypertension?: No Does the patient have a history of Stroke/TIA/Thromboembolism?: No Does the patient have a history of Vascular Disease (prior TX, PAD or aortic plaque)?: Yes Does the patient have a history of Diabetes?: Yes CHADS VACS Score: 2 Shane Prediction Score Rsk VTE Active Cancer: No Previous VTE, excluding superficial vein thrombosis: No Reduced mobility: No Already known Thrombophilic Condition: Yes With-in last month Trauma and/or Surgery: No Elderly 70 year or older: No Heart and/or Respiratory Failure: No Acute Myocardial infarction and/or Ischemic Stroke: No Acute Infection and/or Rheumatologic Disorder: No Obesity (BMI 30 or greater): No Ongoing Hormonal Treatment: No Score: 3 Shane Score less than 4; Low Risk of VTE Shane Score 4 or greater; High Risk of VTE Coding Level of Care Code Est Patient Level 1 Diagnoses Current use of anticoagulant therapy Z79.01 Assessment & Plan Assessment & Plan (1) Current use of anticoagulant therapy: Code(s): Z79.01 - long term care phlebotomist (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
[2025-04-24 09:29] LABS: Prothrombin Time Whole Bld POC 33.5 sec (11.1-13.5); ~PT, ~INR - Anti Coag Clinic 2.8 (0.9-1.1)
== END 2025-04-24 09:35 | disposition home or self-care (01) ==
LOC: HO.ACS 09:22
PROVIDERS: PCP Physician Assistant Medical; Visit Provider Internal Medicine Medical Oncology
DX: Z79.01 Long term (current) use of anticoagulants (principal)

== ENCOUNTER → 2025-04-24 09:22 | Outpatient (BNVA) | payer OTHER, SELFPAY | PROVIDERS: PCP Physician Assistant Medical; Visit Provider Internal Medicine Medical Oncology | DX: Z95.2 Presence of prosthetic heart valve (principal); Z79.01 Long term (current) use of anticoagulants; Z51.81 Encounter for therapeutic drug level monitoring | CPT/HCPCS: 85610; 99211 ==

== ENCOUNTER 2025-05-07 09:21 | Outpatient (AMB) | payer OTHER, SELFPAY ==
--- OUTSIDE RECORDS SUMMARY | 2025-05-02 23:59 | XMS_ITS | Continuity of Care Document ---
Author Organization [facility] Adult Address [address] [place] [address]- Care Team Providers Care Chief Technologist Name Role Phone Sean ALEMAN, Vandana Timmons Primary Care P scotty Encounter [facility] Date(s): 04/02/25 - 05/02/[address] [id number] Encounter Type: Triage Allergies, Adverse Reactions, Alerts [...] vaccine, inactivated 1 02/24/06 Gi rito SARS-CoV-2(COVID-19)mRNA-LNP vac([id number]) 07/31/24 Recorded tetanus/diphtheria/pertussis, acel(Tdap) 2 01/18/23 Given [id number] bivalent booster vax 10/26/22 Recorded SARS-CoV-2 (COVID-19) mRNA-1273 vaccine 09/14/21 R ecorded SARS-CoV-2 (COVID-19) mRNA-1273 vaccine 03/10/21 R ecorded SARS-CoV-2 (COVID-19) mRNA-1273 vaccine 02/09/21 R ecorded hepatitis B adult vaccine 11/17/19 Recorded pneumococcal 23-valent vaccine 11/23/17 Recorded Pneumococcal Vaccine (oldterm) 3 02/24/06 Given 1Result Comment: [id number] exp 02/25/06 2Result Comment: [facility] 62062-389-90 3Result Comment: [id number] exp 04/13/07 Medications busPIRone 15 mg oral tablet TAKE 1 TABLET BY MOUTH TWICE A DAY DIRECTED FOR ANXIETY Start Date: 05/01/24 Status: Ordered Repeat number: 1 Cialis 10 mg oral tablet 1 tablet = 10 mg, By Mouth, Daily, 1 hour before sexual activity, # 30 tablet, 0 Refills, Maintenance, 07/06/23 12:46:00 PM EDT, Tablet, [facility]/pharmacy #[id number], Partial fill upon patient request if the prescription is for a schedule II opioid drug., 182, cm, 06/29/23 8:13:00 EDT, Height Start Date: 07/06/23 Stop Date: 08/05/23 Status: Ordered Quantity: 30.0 Unit: tablet Repeat number: 1 FREESTYLE LITE TEST STRIP FREESTYLE LITE TEST STRIP, See Instructions, # 200 Unknown, 1 Refills, Maintenance, USE DIRECTEDTWICE DAILY FOR TYPE 2 DIABETES MELLITUS, 04/30/25 1:08:00 PM EDT, 182, cm, 01/07/25 9:19:00 EST, Height Start Date: 04/30/25 Status: Ordered Quantity: 200.0 Unit: Unknown Repeat number: 1 FREESTYLE LITE TEST STRIP [...] 5 Refills, Maintenance, 12/11/24 3:59:00 PM EST, [facility], 182, cm, 07/03/24 9:35:00 EDT, Height Start Date: 12/11/24 Status: Ordered Quantity: 30.0 Unit: tablet Repeat number: 1 metFORMIN 500 mg oral tablet 2 tablet = 1,000 mg, By Mouth, 2 times a day, with meals, # 360 tablet, 3 Refills, Maintenance, 12/04/24 9:27:00 AM EST, Tablet, [facility]/pharmacy #2339, Partial fill upon patient request if [...] PM, # 90 tablet, Refills 1, Maintenance, 04/02/25 9:09:00 AM EDT, Route to Pharmacy Electronically, [facility], 182, cm, 01/07/25 9:19:00 EST, Height Start Date: 04/02/25 Status: Ordered Quantity: 90.0 Unit: tablet Repeat number: 1 Trulicity Pen 1.5 mg/0.5 mL subcutaneous solution 0.5 mL = 1.5 mg, Subcutaneous Injection, Every week, rotate injection sites, # 2 mL, 2 Refills, Maintenance, 02/04/25 4:19:00 PM EDT, Solution, [id number], Partial fill upon patient request ifthe [...] Team Personnel Name: Manjinder Pastrana RN Position: S RN Member Role: Primary Care Nurse Name: Vandana Zamudio Position: [facility] PCO Associate Professional Member Role: PCP Address: [address] [place] [address]. [address] [place] [address] Telecom: Name: Grisel Hardy RN Position: S RN Member Role: Primary Care Nurse Care Team Related Persons Name: ANASTACIO MALIK Name: KATHY MALIK Name: BUCK JANE Insurance Providers Guarantor name: STACEY MALIK Health Plan Information #: 1 Payer: [facility] Payer Identifier: NA Member Number: [id number] Group Number: NA Subscriber Identifier: [id number] Relationship to Subscriber: self Coverage Type: Medicaid (Managed Care) Coverage Verification Date: NA Telecom: NA Address:
--- NOTE | 2025-05-07 09:29 | MHC.OFFVIS ---
Vital Signs 05/07/25 09:30 Height 6 ft Weight 208 lb BMI 28.2 BP 94/63 Blood Pressure Location Lt brachial Position Sitting Pulse 82 Pulse Oximetry (%) 96 Oxygen Delivery Method Room Air Intake Visit Reasons: 6 follow up Intake Note: Patient 6 month follow up for Alcoholic cirrhosis of liver without ascites, lab and CT scan results. Patient cc: constipation nauseas and heartburn on and off, denies any other GI issues for today. Dental Technology Advisor Required: No Accompanied by: Self / Same As Patient Allergies No Known Allergies Allergy (Verified 05/07/25 09:28) Medication List - Last Reconciled 05/07/25 by Gary Soliman MD blood sugar diagnostic As directed bupropion HCl XL 300 mg PO DAILY buspirone 15 mg PO BID clonazepam 1 mg PO BEDTIME PRN cyanocobalamin (vitamin B-12) PO DAILY dulaglutide (Trulicity) mg subcut empagliflozin 25 mg PO DAILY gabapentin 300 mg PO TID metformin 500 mg PO BID metoprolol succinate ER 50 mg PO DAILY ondansetron 4 mg PO Q8H PRN 45 days prazosin 1 mg PO BEDTIME psyllium husk (with sugar) 3.4 gram/7 gram (Daily Fiber (psyllium-sucrose)) 1 tsp PO BID 90 days sennosides-docusate sodium 8.6-50 mg (Senna Plus) 2 tabs PO BEDTIME sertraline mg PO simvastatin 40 mg PO BEDTIME tadalafil 10 mg PO DAILY trazodone 150 mg PO BEDTIME warfarin mg See Protocol PO HPI HPI 6 follow up: Details: GI Clinic visit for this 49 YM for FU of alcoholic cirrhosis and chronic hepatitis-C - no viral load detected in 06/2018 and Nov, 2019. CHRONIC ILLNESSES:?type II diabetes, S/P AVR (aortic valve replacement) on [facility] with warfarin, Hepatitis C virus infection, unspecified chronicity Medication List - Last Reconciled 04/24/24 by Gary Soliman MD blood sugar diagnostic As directed bupropion HCl XL 300 mg PO DAILY buspirone mg PO cyanocobalamin (vitamin B-12) PO DAILY dulaglutide (Trulicity) 1.5 mg subcut QWEEK dulaglutide (Trulicity) mg subcut hydroxyzine HCl 25 mg PO TID metformin 500 mg PO BID metoprolol succinate ER 50 mg PO DAILY psyllium husk (with sugar) 3.4 gram/7 gram (Daily Fiber (psyllium-sucrose)) 1 tsp PO BID 90 days ranitidine HCl mg PO sennosides-docusate sodium 8.6-50 mg (Senna Plus) 2 tabs PO BEDTIME sennosides-docusate sodium 8.6-50 mg (Senna Plus) 2 tab-caps (2 x 8.6-50 mg) PO BEDTIME 90 days sertraline mg PO simvastatin 40 mg PO BEDTIME tadalafil 10 mg PO DAILY trazodone 150 mg PO BEDTIME warfarin mg See Protocol PO TODAY'S VISIT Patient 6 month follow up for Alcoholic cirrhosis of liver without ascites, lab and CT scan results. Complains of mild nausea and constipation. Has a BM every 4 days - hard stools associated with straining Se[place] [facility] and advised MR Elastography to rule out presence of scarring/cirrhosis. Liver transplant was not advised. PAST VISITS: Abdominal ultrasound and gastric emptying study results were reviewed with the patient. Nausea is a little better. Appetite is up and down - some days he is hungry and other days he is not Denies HB, dysphagia or abd pain. Constipation comes and goes. Takes Senna 2 tab at bedtime 3 times a week with good results No appetite for the past 2 weeks (started Trulicity a year ago) DM since age 20 yrs Complains of ch constipation BM once every 3-4 days with hard stools Taking Senna 1 tab three nights a week and not working very well Can wake up with a little nausea sometimes Requesting a refill for Senna. Can have hard stools one week and diarrhea the following week - advised to increase the fibre supplement to twice a day. EGD and colon results reviewed with the patient. Denies having any problems after endoscopic procedures Complains of intermittent LLQ cramps associated with constipation - advised to start a fibre supplement Had a new PCP in Dec (Monalisa Dejesus NP) and practice was closed. Now she has opened a new practice in [place] on May 12 and he will set up an appt to see her. Warfarin is managed by [facility] and they do not give prescriptions. Private Detective is Dr Rojas in [place]. Switched to Trulicity and noted abdominal pain and decreased appetite. Constipation is better - has a BM every 2 days. Complains of constipation - has a BM every 4 days with hard stools. ? Doing fine without symptoms - denies fatigue, abdominal distension, black stools or rectal bleeding ? Wt has been stable. ? Abd US results were reviewed with the patient. Taking warfarin 10 mg daily and 5 mg 1 day a week. Interested in establishing care with the Anticoagulation clinic at [facility] Due for FU labs - would like to go [place] [facility] [place] ? Treated with Harvoni x 12 weeks for Hepatitis C in 2017 - follow-up hepatitis-C viral load was negative . ? Denies fatigue, jaundice, abdominal distension. ? Denies abdominal pain, dysphagia, heartburn, nausea or vomiting, change in appetite or weight. ? Patient denies change in bowel habits, black stools or rectal bleeding ? Positive family history of colon cancer in his paternal grandfather in his late 70's/early 80's ?LABS IN [employer]:?11/2020 done at [facility] and scanned into pt's chart ? 11/17/19 normal CBC with platelet count of 168, INR 2.1, normal LFTs, albumin 4.9. ? Liver fibrosis score of 0.69, liver fibrosis stage F3, necroinflammatory score 0.13 ?IMAGING STUDIES: 11/2023 ABD US SHOWED: Mildly increased hepatic echogenicity which can be seen in the setting of hepatic steatosis or underlying liver disease. No hepatic mass. 11/2022 ABD US SHOWED: Sonographic appearance suggests mild hepatic steatosis. No focal liver lesions seen. ? Borderline splenomegaly. 06/03/21 05/18/23 ABD US WITH ELASTOGRAPHY SHOWED: 1. Hepatomegaly with increased echogenicity consistent with fatty infiltration/hepatocellular disease of other etiology. 2. Liver elastography: Measurements are suggestive of compensated advanced chronic liver disease but need further test for confirmation. ABD US SHOWED: Normal-appearing liver. Echogenic appearing pancreas questionable for fatty infiltration. Right renal cysts and question small right renal stone. 12/08/[address] scan showed: ? IMPRESSION: ? 1. There is hepatic steatosis. ? 2. Previously identified of enhancing right hepatic lobe lesions are now not demonstrated with certainty. No new mass or biliary dilatation is seen. ? 3. Multiple bilateral renal cysts are redemonstrated, consistent with prior ultrasound findings. ? 01/[address] scan showed: ? IMPRESSION: Three peripheral arterial enhancing lesions in the posterior segment of the right lobe of the liver. One of these lesions demonstrates washout. The larger 6 mm lesion is similar to most recent exam ? July 2018 and the 2 adjacent more lateral smaller lesions are similar to earliest CT January 2018. Continued attention on follow-up recommended. Slightly enlarged spleen. Question small stable left ? adrenal nodule. Stable bilateral renal cysts. ENDOSCOPIC STUDIES:? 09/06/22 EGD AND COLONOSCOPY SHOWED: Endoscopy Findings: ESOPHAGUS: GE junction at 36 cms, small hiatal hernia 36 to 38 cms. No varices, esophagitis or Saleem's. STOMACH: Mild portal gastropathy and a few 5-8 mm benign appearing polyps in the body of the stomach - biopsied. Mild gastric erythema with a few superficial erosions - biopsies were obtained. Grade 2 flap valve and no gastric varices on retroflexed examination of the cardia. Colonoscopy Findings: One medium sized hyperplastic polyp removed Moderate diverticulosis seen in the sigmoid colon Moderate hemorrhoids on retroflexed exam. Plan:? Patient has an appointment on 10/19/22 in the GI Clinic with Gary Soliman M.D.. Repeat Colonoscopy interval based on path results - in 3-5 years if polyps are adenomatous and 10 years if polyps are hyperplasia [facility] Medical History (Updated 04/24/24 @ 09:56 by Gary Soliman MD) Aortic valve insufficiency Mitral valve stenosis, non-rheumatic History of intravenous drug abuse On beta andreas at home Hepatitis C On anticoagulant therapy Cirrhosis Hepatitis C virus infection Surgical History Hx of colonoscopy History of esophagogastroduodenoscopy (EGD) H/O skin graft History of liver biopsy H/O aortic valve replacement Family History Father Alive and well Mother Hx of type 2 diabetes mellitus Social History Alcohol intake: former Year quit: 2017 Substance Use Type: Marijuana Review of Systems Const All systems reviewed & are unremarkable except as noted in HPI and below Physical Exam Vital Signs: Last Vital Signs Pulse 82 05/07/25 09:30 BP 94/63 05/07/25 09:30 Pulse Ox 96 05/07/25 09:30 Oxygen Delivery Method Room Air 05/07/25 09:30 BMI result Body Mass Index 28.2 Const General: healthy appearing and no acute distress Nutritional Appearance: overweight Orientation/consciousness: patient oriented x3 Limitations: no limitations HEENT Head: Yes normal to inspection Ears: hearing grossly normal bilaterally Eyes Sclerae: sclerae normal Pupils: Equal, round and reactive pupils present Neck Neck: Yes normal visual inspection Chest Chest palpation & inspection: normal inspection of the chest Resp Effort & Inspection: normal respiratory effort Auscultation: clear to auscultation bilaterally Cardio Palpation: normal PMI Rate: regular rate Rhythm: regular rhythm Heart sounds: S1 normal heart sound present, S2 normal heart sound present and no murmurs GI Palpation (GI): Soft to palpation, nontender and No hepatosplenomegaly present Auscultation: normal bowel sounds Rectal Exam - Male: Yes deferred Skin General skin exam: no rashes or lesions noted Neuro General: patient oriented x3, gait normal and moves all extremities Cranial nerves: Yes Equal, round and reactive pupils present Psych Appearance: grossly normal Mental Status: mental status grossly normal Assessment & Plan Assessment & Plan (1) Alcoholic cirrhosis of liver without ascites: Code(s): K70.30 - Alcoholic cirrhosis of liver without ascites Category: Medical (2) Colon cancer screening: Code(s): Z12.11 - Encounter for screening for malignant neoplasm of colon Category: Medical (3) Chronic constipation: Code(s): K59.09 - Other constipation Category: Medical (4) GERD (gastroesophageal reflux disease): Code(s): K21.9 - Gastro-esophageal reflux disease without esophagitis Category: Medical (5) Nausea: Code(s): R11.0 - Nausea Category: Medical Plan 49 YM with type II diabetes, S/P AVR (aortic valve replacement) followed in GI for compensated cirrhosis likely due to past hepatitis C which was treated in 2016. Patient denies regular EtOH use. Liver fibrosis test showed F3 fibrosis. MELD score is 18 due to INR of 2.7 (pt is on warfarin for aortic valve replacement) Abdominal CT scan in January 2019 showed three small hepatic lesions which were stable. 12/01 no hepatic lesions noted on repeat CT scan. Course and prognosis of cirrhosis was discussed with the patient during his past visit and he was given patient handout from up-to-date on cirrhosis. Pt states he had Hep B immunization several yrs ago. Recent Hep B serologies showed negative Hep B surface and core ab. 08/2022 EGD and colonoscopy were performed and findings as noted above. 04/26/23 Can have hard stools one week and diarrhea the following week - advised to increase the fibre supplement to twice a day. 10/25/23 Complains of ch constipation BM once every 3-4 days with hard stools Taking Senna 1 tab three nights a week and not working very well Pt advised to increase Senna to 2 tabs at bedtime for constipation Gastric emptying study for evaluation of nausea - normal 11/01/24 patient advised to schedule a triple phase CT scan for HCC surveillance (due to limited visualization of the liver on ultrasound) Patient will be [facility] to [facility] liver transplant [facility] for pre transplant evaluation (MELD score is 18 - higher due to oral anticoagulation with warfarin) 05/07/25 Pt advised to schedule an MR Elastography - as recommended by [facility] [place] [facility]. Start Linzess 145 mcg daily for constipation and Compazine p.r.n. for nausea. FU in 6 months Orders: Orders MR abdomen wo/w con Today K70.30 - Alcoholic cirrhosis of liver without ascites Medications: New linaclotide (Linzess) 145 mcg PO QAM 30 caps 3RF 30 days K59.09 - Other constipation prochlorperazine maleate (Compazine) 10 mg PO Q12H PRN 60 tabs 3RF nausea and vomiting 30 days R11.0 - Nausea Coding Level of Care Code Est Pt Level 4 (48143) Complex EM visit Add On G2211 Diagnoses Alcoholic cirrhosis of liver without ascites K70.30 Colon cancer screening Z12.11 Chronic constipation K59.09 GERD (gastroesophageal reflux disease) K21.9 Nausea R11.0 Time Spent (min) 23
[2025-05-07 09:30] VITALS: BP 94/63; PULSE 82; O2SAT 96; BMI 28.2
== END 2025-05-07 10:01 | disposition home or self-care (01) ==
LOC: HO.HGI 09:21
PROVIDERS: PCP Student in an Organized Health Care Education/Training Program; Visit Provider Internal Medicine Gastroenterology
DX: K70.30 Alcoholic cirrhosis of liver without ascites (principal); K59.09 Other constipation; K21.9 Gastro-esophageal reflux disease without esophagitis; R11.0 Nausea
CPT/HCPCS: 99214; G2211

== ENCOUNTER → 2025-05-07 09:21 | Outpatient (BNVA) | payer OTHER, SELFPAY | PROVIDERS: PCP Student in an Organized Health Care Education/Training Program; Visit Provider Internal Medicine Gastroenterology | DX: K70.30 Alcoholic cirrhosis of liver without ascites (principal); Z12.11 Encounter for screening for malignant neoplasm of colon; K59.09 Other constipation; K21.9 Gastro-esophageal reflux disease without esophagitis; R11.0 Nausea | CPT/HCPCS: 99212 ==

== ENCOUNTER 2025-05-22 09:34 | Outpatient (AMB) | payer OTHER, SELFPAY ==
[2025-05-22 09:39] LABS: Prothrombin Time Whole Bld POC 39.9 sec (11.1-13.5); ~PT, ~INR - Anti Coag Clinic 3.3 (0.9-1.1)
--- NOTE | 2025-05-22 09:42 | MHC.OFFVISCO ---
Intake Intake Visit Reasons: Anticoagulation Allergies No Known Allergies Allergy (Verified 05/22/25 09:35) Medication List - Last Reconciled 05/22/25 by Hawa Diaz RN blood sugar diagnostic As directed bupropion HCl XL 300 mg PO DAILY buspirone 15 mg PO BID clonazepam 1 mg PO BEDTIME PRN cyanocobalamin (vitamin B-12) PO DAILY dulaglutide (Trulicity) mg subcut empagliflozin 25 mg PO DAILY gabapentin 300 mg PO TID linaclotide (Linzess) 145 mcg PO QAM 30 days metformin 500 mg PO BID metoprolol succinate ER 50 mg PO DAILY ondansetron 4 mg PO Q8H PRN 45 days prazosin 1 mg PO BEDTIME prochlorperazine maleate (Compazine) 10 mg PO Q12H PRN 30 days psyllium husk (with sugar) 3.4 gram/7 gram (Daily Fiber (psyllium-sucrose)) 1 tsp PO BID 90 days sennosides-docusate sodium 8.6-50 mg (Senna Plus) 2 tabs PO BEDTIME sertraline mg PO simvastatin 40 mg PO BEDTIME tadalafil 10 mg PO DAILY trazodone 150 mg PO BEDTIME warfarin mg See Protocol PO Nursing Note INR: 3.3 in therapeutic range of 2.5-3.5 Medications and supplements reviewed No changes in health, diet, medications, or supplements, Denies any signs and symptoms of bleeding or bruising or clotting. Bleeding, bruising, clotting discussed Nutritional guidance given Dose: 8mg daily F/U INR: 4 weeks Patient verbalizes understanding of instructions given Anti-Coag Initial Assessment Social Hx alcohol intake: former Alcohol intake frequency: holidays/special occasions only Coding Level of Care Code Est Patient Level 1 Diagnoses Current use of anticoagulant therapy Z79.01 Results AMB INR Fingerstick AMB INR Fingerstick 3.3 Last Edit by Hawa Diaz RN on 05/22/25 09:39 interface delay Assessment & Plan Assessment & Plan (1) Current use of anticoagulant therapy: Code(s): Z79.01 - longterm (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
== END 2025-05-22 09:52 | disposition home or self-care (01) ==
LOC: HO.ACS 09:34
PROVIDERS: PCP Student in an Organized Health Care Education/Training Program; Visit Provider Internal Medicine Medical Oncology
DX: Z79.01 Long term (current) use of anticoagulants (principal)

== ENCOUNTER → 2025-05-22 09:34 | Outpatient (BNVA) | payer OTHER, SELFPAY | PROVIDERS: PCP Student in an Organized Health Care Education/Training Program; Visit Provider Internal Medicine Medical Oncology | DX: Z95.2 Presence of prosthetic heart valve (principal); Z79.01 Long term (current) use of anticoagulants; Z51.81 Encounter for therapeutic drug level monitoring | CPT/HCPCS: 85610; 99211 ==

== ENCOUNTER → 2025-06-09 09:06 | Outpatient (BNV) | payer OTHER, SELFPAY | PROVIDERS: Visit Provider Radiology Diagnostic Radiology | DX: K70.30 Alcoholic cirrhosis of liver without ascites (principal) | CPT/HCPCS: 74183 ==

== ENCOUNTER 2025-06-09 09:11 | Outpatient (REF) | payer OTHER, SELFPAY ==
--- NOTE | ~2025-06-09 | MR_ITS ---
EXAMINATION: MR ABDOMEN WITHOUT THEN WITH IV CONTRAST HISTORY: K70.30 - Alcoholic cirrhosis of liver without ascites COMPARISON: Correlation is made with a CT of the liver dated 12/30/2024. TECHNIQUE: Axial in and out of phase T1-weighted gradient echo, axial diffusion weighted, and axial and coronal HASTE T2 with fat saturation images were obtained through the abdomen. Subsequently, fat suppressed axial and coronal T1-weighted images were obtained after the intravenous administration of 9 mL Gadavist. FINDINGS: Liver: There is no loss of signal intensity in the liver on opposed phase imaging to suggest steatosis. The liver surface is smooth. There is no enhancing liver mass. The hepatic and portal veins are patent. There is no intrahepatic biliary dilatation. Gallbladder/biliary tree: No gallstones are identified. The common bile duct is normal in caliber. No intraluminal filling defects are identified to suggest choledocholithiasis. Spleen: The spleen is unremarkable. Pancreas: The pancreas is unremarkable. There is no enhancing pancreatic mass. The pancreatic duct is normal in caliber. Adrenals: The adrenal glands are unremarkable. Kidneys: There is a 5.5 cm cyst in the mid to lower pole region of the right kidney. At the upper pole of the left kidney, there is a 1.5 cm cyst demonstrating a fluid/fluid level consistent with hemorrhage. There are 2 adjacent cysts at the lower pole of the left kidney measuring 1.8 and 1.6 cm. There is no hydronephrosis. Lymph nodes: There is no retroperitoneal lymphadenopathy in the upper abdomen. Fluid: There is no ascites in the upper abdomen. Visualized bowel: The visualized small and large bowel loops are unremarkable in appearance. Visualized bones: The visualized bones demonstrate normal marrow signal intensity. MR/MR abdomen wo/w con IMPRESSION: 1. No evidence of a liver mass. 2. Multiple bilateral renal cysts including a 1.5 cm hemorrhagic cyst at the upper pole of the left kidney. Electronically signed by: Quoc Garcias MD 06/09/2025 10:23 AM EDT
--- OUTSIDE RECORDS SUMMARY | 2025-06-09 09:38 | XMS_ITS | Clinical Summary ---
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 4 Active metoprolol succinate (TOPROL-XL) 25 MG 24 hr tablet Take 1 tablet by mouth every morning. 5 Active JARDIANCE 25 mg tablet Take 25 mg by mouth every morning. Active TRULICITY 1.5 mg/0.5 mL subcutaneous injection Inject 1.5 mg under the skin every 7 days. 5 Active metFORMIN (GLUCOPHAGE) 500 MG tablet Take 500 mg by mouth 3 (three) times a day with meals. 4 11/29/19 26 Active simvastatin (ZOCOR) 40 MG tablet Take 40 mg by mouth nightly at bedtime. Active gabapentin (NEURONTIN) 300 MG capsule Take 300 mg by mouth 3 (three) times a day. 5 Active sertraline (ZOLOFT) 100 MG tablet Take 200 mg by mouth daily. Active clonazePAM (KLONOPIN) 1 MG tablet Take 1 mg by mouth 2 (two) times a day as needed for anxiety. 5 Active buPROPion (WELLBUTRIN XL) 300 MG ER 24 hr tablet Take 300 mg by mouth every morning. 5 Active amoxicillin (AMOXIL) 500 MG capsule Take 2,000 mg by mouth daily as needed (For dental procedure). 5 Active metoprolol tartrate (LOPRESSOR) 25 MG tablet Take 25 mg by mouth daily. 5 Active ondansetron (ZOFRAN-ODT) 4 MG disintegrating tablet Take 4 mg by mouth every 12 (twelve) hours as needed for nausea. Active traZODone (DESYREL) 150 MG tablet Take 150 mg by mouth nightly at bedtime. 5 Active Active Problems No known active problems Encounters Date Type Department Care Team Description 03/26/2025 Telephone [facility] [address] [place] [id number] Josefina Quintero RN 03/25/2025 Committee Review [facility] [address] [place] [id number] Josefina Quintero RN from Last 3 Months Immunizations Immunization Administration Dates Next Due COVID-19 (Pre-09/03) Moderna Vaccine, mRNA, PF 09/14/2021,03/10/2021,02/09/2021 COVID-19 (Pre-09/03) Pfizer Vaccine, Bivalent 12+ 10/26/2022 COVID-19 Pfizer Comirnaty Vaccine 12+ 07/31/2024 Hepatitis B Adult 11/17/2019 Influenza Trivalent w/ Preservative IM 0 07/31/2024,10/31/2023,11/10/2022,09/02,07/29/2020,08/02/2018,11/23/2017 Influenza, Unspecified Formulation 02/24/2006 Pneumococcal polysaccharide PPSV23 11/23/2017, Tdap 01/18/2023 Social History Tobacco Use Types Packs/Day Years Used Date Smoking Tobacco: Never Tobacco Cessation:Counseling Given: No Education Answer Date Recorded Are you interested in more education? Not on adeola e 12/18/2024 Are you concerned about learning? Not on file 12/18/2024 No 12/18/2024 No 12/18/2024 Digital Access Answer Date Recorded No 12/18/2024 No 12/18/2024 Reliable internet access at home? Not on file 12/18/2024 Device with a working camera? Not on file Sex and Gender Information Value Date Recorded Sex Assigned at Male 11/28/2024 11:17 AM EST Legal Sex Male 11:11 AM EST Gender Identity Male 11/28/2024 11:17 AM EST Sexual Orientation Straight 11/28/2024 11 :17 AM EST Last Filed Vital Signs Vital Sign Reading Time Taken Comments Blood Pressure 105/60 02/27/2025 9:06 AM EDT Pulse 68 02/27/2025 9:06 AM EDT Temperature 36.4 C (97.6 F) 02/27/2025 9:06 AM EDT Respiratory Rate 16 02/27/2025 9:06 AM EDT Oxygen Saturation 94% 02/27/2025 9:06 AM EDT Inhaled Oxygen Concentration - - Weight 98.4 kg (217 lb) 02/27/2025 9:06 AM EDT Height 182.9 cm (6') 02/27/2025 9:06 AM EDT Body Mass Index 29.43 02/27/2025 9:06 AM EDT Plan of Treatment Health Maintenance Due Date Last Done Comments DEPRESSION SCREENING 1987 SMOKING STATUS SCREENING (Once After 26 Yrs) 2001 SCREENING FOR DIABETES 2010 PNEUMOCOCCAL VACCINES (0-49 years) (2 of 2 - PCV) 11/23/2018 11/23/2017, 02/24/2006 COLOGUARD 2020 COLONOSCOPY 2020 COLORECTAL CANCER SCREENING 2020 FIT TEST 2020 FOBT 2020 SIGMOIDOSCOPY 2020 VIRTUAL COLONOSCOPY 2020 CREATININE LEVEL 02/27/2026 02/27/2025 LIPID PANEL 02/27/2030 02/27/2025 Adult Td,Tdap Booster 01/18/2033 01/18/2023 COVID-19 VACCINE Completed 07/31/2024, , 09/14/2021, Additional history exists HEPATITIS C SCREENING Completed 02/27/2025, 025 HIV ONE-TIME SCREENING (18-65 YEARS) Completed 02/27/2025 HIB VACCINES Aged Out No longer eligi ble based on patient's age to complete this topic MENINGOCOCCAL VACCINES (ACWY) Aged Out No longer eligible based on patient's age to complete this topic MENINGOCOCCAL VACCINES (B) Aged Out N o longer eligible based on patient's age to complete this topic Medical Devices Not on file Procedures Procedure Name Priority Date/Time Associated Diagnosis Comments LIPID PANEL Routine 02/27/2025 8:05 AM EDT Encounter for pre-transplant evaluation for liver transplant History of hepatitis C virus infection Alcoholic cirrhosis HEPATITIS C ANTIBODY, QUALITATIVE Routine 02/27/2025 8:05 AM EDT Need for hepatitis C screening test COMPREHENSIVE METABOLIC PANEL Routine 02/27/2025 8:05 AM EDT Encounter for pre-transplant evaluation for liver transplant History of hepatitis C virus infection Alcoholic cirrhosis from Last 3 Months or Most Recently Relevant to Health Maintenance Results * (ABNORMAL) Comprehensive metabolic panel (02/27/2025 8:05 AM EDT) SODIUM 138 133 - 146 mmol/L [facility] POTASSIUM 4.2 3.3 - 5.1 mmol/L [facility] CHLORIDE 103 96 - 108 mmol/L [facility] CO2 23 21 - 35 mmol/L [facility] BUN 23(H) 6 - 19 mg/dL [facility] CREATININE 0.80 0.5 - 1.5 mg/dL [facility] GLUCOSE 128(H) 70 - 99 mg/dL [facility] ALBUMIN 4.9(H) 3.9 - 4.8 g/dL [facility] TOTAL PROTEIN 7.5 6.5 - 8.0 g/dL [facility] CALCIUM 9.3 8.4 - 10.3 mg/dL [facility] ALKALINE PHOSPHATASE 61 39 - 117 U/L [facility] TOTAL BILIRUBIN 0.4 0.0 - 1.2 mg/dL [facility] AST 16 0 - 37 U/L [facility] ALT 17 0 - 40 U/L [facility] GLOBULIN 2.6 1 - 4.8 g/dL [facility] EGFR 108 >59 mL/min/1.7 3m2 [facility] Comment:Estimated glomerular filtration rate calculated using the CKD-EPI refit equation. ANION GAP 16 10 - 20 mmol/L [facility] Blood 02/27/2025 8:05 AM EDT 02/27/2025 9:17 AM EDT Chapito Wilson MD LAB BLOOD ORDERABLES Final Resul t Performing Organization Address City/[facility] Co de Phone Number [address] [phone] * (ABNORMAL) Hepatitis C antibody, qualitative (02/27/2025 8:05 AM EDT) HCV REACTIVE(A) NON-REACTI VE [facility] Blood 02/27/2025 8:05 AM EDT 02/27/2025 9:17 AM EDT Chapito Wilson MD LAB BLOOD ORDERABLES Final Resul t Performing Organization Address [facility] Co de Phone Number [address] [phone] * (ABNORMAL) Lipid panel (02/27/2025 8:05 AM EDT) HDL 38 mg/dL [facility] Comment: Interpretation <40 mg/dL: Low HDL cholesterol (major risk factor for CHD) Greater than or equal to 60 mg/dL: High HDL cholesterol ( negative risk factor for CHD) HDL - cholesterol is affected by a number of factors, e.g. smoking, excerise, hormones, sex and age. CHOLESTEROL 136 0 - 240 mg/dL [facility] TRIGLYCERIDES 189(H) 30 - 160 mg/dL [facility] LDL 60 50 - 129 mg/dL [facility] Comment: LDL levels in terms of risk for coronary heart disease: <100 mg/dL: Optimal 100-129 mg/dL: Near or above optimal 130-159 mg/dL: Borderline high 160-189 mg/dL: High >190 mg/dL: Very High CARDIAC RISK RATIO 3.6 3.4 - 5.0 [facility] Blood 02/27/2025 8:05 AM EDT 02/27/2025 9:17 AM EDT Chapito Wilson MD LAB BLOOD ORDERABLES Final Resul t [facility] [address] [place] [address] from Last 3 Months or Most Recently Relevant to Health Maintenance Insurance [employer] [address] [place] [address] [employer] [facility] [employer] [facility] [employer] Care Teams Laundromat Worker Relationship Specialty Start Date End Date Vandana Lopez PA [address] [email or web address] [facility] [address] [place] [id number] PCP - General Physician Microwave Supervisor 02/27/25 Mildred Goodman, [address] [id number] [email or web address] 03/04/25 Additional Source Comments The information contained in this document represents components of the legal health record. It is not the complete legal health record.[facility]
== END 2025-06-09 09:12 | disposition home or self-care (01) ==
LOC: HO.MRI 09:11
PROVIDERS: Visit Provider Internal Medicine Gastroenterology
DX: K70.30 Alcoholic cirrhosis of liver without ascites (principal)
CPT/HCPCS: 74183; A9585

== ENCOUNTER 2025-06-19 09:09 | Outpatient (AMB) | payer OTHER, SELFPAY ==
[2025-06-19 09:18] LABS: Prothrombin Time Whole Bld POC 37.8 sec (11.1-13.5); ~PT, ~INR - Anti Coag Clinic 3.2 (0.9-1.1)
--- OUTSIDE RECORDS SUMMARY | 2025-06-19 09:18 | XMS_ITS | Clinical Summary ---
Author Organization [facility] Address [address] [place] [address] Phone Care Team Providers Care Automobile Bumper Straightener Name Role Phone Vandana Lopez Primary Care P rovider Mildred GoodmanSW Unavailable Allergies No known active allergies Medications warfarin [...] Type Department Care Team Description 03/26/2025 Telephone [facility] [address] [place] [id number] Josefina Quintero RN 03/25/2025 Committee Review [facility] [address] [place] [id number] Josefina Quintero RN from Last 3 Months Immunizations Immunization Administration Dates Next Due COVID-19 (Pre-09/03) Moderna Vaccine, mRNA, PF 09/14/2021,03/10/2021,02/09/2021 COVID-19 (Pre-09/03) Pfizer Vaccine, Bivalent 12+ 10/26/2022 COVID-19 Pfizer Comirnaty Vaccine 12+ 07/31/2024 Hepatitis B Adult 11/17/2019 INFLUENZA, SPLIT VIRUS, TRIV ALENT W/ PRESERVATIVE IM 07/31/2024,10/31/2023,11/10/2022,09/02,07/29/2020,08/02/2018,11/23/2017 Influenza, Unspecified Formulation 02/24/2006 Pneumococcal polysaccharide [...] EDT) SODIUM 138 133 - 146 mmol/L [facility] POTASSIUM 4.2 3.3 - 5.1 mmol/L [facility] CHLORIDE 103 96 - 108 mmol/L [facility] CO2 23 21 - 35 mmol/L [facility] BUN 23(H) 6 - 19 mg/dL [facility] CREATININE 0.80 0.5 - 1.5 mg/dL [facility] GLUCOSE 128(H) 70 - 99 mg/dL [facility] ALBUMIN 4.9(H) 3.9 - 4.8 g/dL [facility] TOTAL PROTEIN 7.5 6.5 - 8.0 g/dL [facility] CALCIUM 9.3 8.4 - 10.3 mg/dL [facility] ALKALINE PHOSPHATASE 61 39 - 117 U/L [facility] TOTAL BILIRUBIN 0.4 0.0 - 1.2 mg/dL [facility] AST 16 0 - 37 U/L [facility] ALT 17 0 - 40 U/L [facility] GLOBULIN 2.6 1 - 4.8 g/dL [facility] EGFR 108 >59 mL/min/1.7 3m2 [facility] Comment:Estimated glomerular filtration rate calculated using the CKD-EPI refit equation. ANION GAP 16 10 - 20 mmol/L [facility] Blood 02/27/2025 8:05 AM EDT 02/27/2025 9:17 AM EDT Chapito Wilson MD LAB BLOOD ORDERABLES Final Resul t Performing Organization Address City/[facility]/ZIP Co de Phone Number [address] [address] * (ABNORMAL) Hepatitis C antibody, qualitative (02/27/2025 8:05 AM EDT) HCV REACTIVE(A) NON-REACTI VE [facility] Blood 02/27/2025 8:05 AM EDT 02/27/2025 9:17 AM EDT Chapito Wilson MD LAB BLOOD ORDERABLES Final Resul t Performing Organization Address [facility] Co de Phone Number [address] [address] * (ABNORMAL) Lipid panel (02/27/2025 8:05 AM EDT) HDL 38 mg/dL [facility] Comment: Interpretation <40 mg/dL: Low HDL cholesterol (major risk factor for CHD) Greater than or equal to 60 mg/dL: High HDL cholesterol ( negative risk factor for CHD) HDL - cholesterol is affected by a number of factors, e.g. smoking, excerise, hormones, sex and age. CHOLESTEROL 136 0 - 240 mg/dL [facility] TRIGLYCERIDES 189(H) 30 - 160 mg/dL [facility] LDL 60 50 - 129 mg/dL [facility] Comment: LDL levels in terms of risk for coronary heart disease: <100 mg/dL: Optimal 100-129 mg/dL: Near or above optimal 130-159 mg/dL: Borderline high 160-189 mg/dL: High >190 mg/dL: Very High CARDIAC RISK RATIO 3.6 3.4 - 5.0 C [facility] Blood 02/27/2025 8:05 AM EDT 02/27/2025 9:17 AM EDT Chapito Wilson MD LAB BLOOD ORDERABLES Final Resul t [facility] [address] [place] [address] from Last 3 Months or Most Recently Relevant to Health Maintenance Insurance [employer] A[employer] A[employer] Care Teams Automobile Bumper Straightener Relationship Specialty Start Date End Date Vandana Lopez PA [address] [facility] [address] [place] [phone] PCP - General Physician Tech Ed/Woodshop Teacher 02/27/25 Mildred Goodman, [address] [phone] [email or web address] [employer] [facility] 03/04/25 Additional Source Comments The information contained in this document represents components of the legal health record. It is not the complete legal health record.[facility]
--- NOTE | 2025-06-19 09:22 | MHC.OFFVISCO ---
Intake Intake Visit Reasons: Anticoagulation Allergies No Known Allergies Allergy (Verified 06/19/25 09:14) Medication List - Last Reconciled 06/19/25 by Hawa Diaz RN blood sugar diagnostic As directed bupropion HCl XL 300 mg PO DAILY buspirone 15 mg PO BID clonazepam 1 mg PO BEDTIME PRN cyanocobalamin (vitamin B-12) PO DAILY dulaglutide (Trulicity) mg subcut empagliflozin 25 mg PO DAILY gabapentin 300 mg PO TID linaclotide (Linzess) 145 mcg PO QAM 30 days metformin 500 mg PO BID metoprolol succinate ER 50 mg PO DAILY ondansetron 4 mg PO Q8H PRN 45 days prazosin 1 mg PO BEDTIME prochlorperazine maleate (Compazine) 10 mg PO Q12H PRN 30 days psyllium husk (with sugar) 3.4 gram/7 gram (Daily Fiber (psyllium-sucrose)) 1 tsp PO BID 90 days sennosides-docusate sodium 8.6-50 mg (Senna Plus) 2 tabs PO BEDTIME sertraline mg PO simvastatin 40 mg PO BEDTIME tadalafil 10 mg PO DAILY trazodone 150 mg PO BEDTIME warfarin mg See Protocol PO Nursing Note INR: 3.2 in therapeutic range of 2.5-3.5 Medications and supplements reviewed No changes in health, diet, medications, or supplements, Denies any signs and symptoms of bleeding or bruising or clotting. 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
== END 2025-06-19 09:27 | disposition home or self-care (01) ==
LOC: HO.ACS 09:09
PROVIDERS: Visit Provider Internal Medicine Medical Oncology
DX: Z79.01 Long term (current) use of anticoagulants (principal)

== ENCOUNTER → 2025-06-19 09:09 | Outpatient (BNVA) | payer OTHER, SELFPAY | PROVIDERS: Visit Provider Internal Medicine Medical Oncology | DX: Z79.01 Long term (current) use of anticoagulants (principal) | CPT/HCPCS: 85610; 99211 ==

== ENCOUNTER 2025-07-24 09:24 | Outpatient (AMB) | payer OTHER, SELFPAY ==
[2025-07-24 09:30] LABS: Prothrombin Time Whole Bld POC 42.2 sec (11.1-13.5); ~PT, ~INR - Anti Coag Clinic 3.5 (0.9-1.1)
--- NOTE | 2025-07-24 09:34 | MHC.OFFVISCO ---
Intake Intake Visit Reasons: Anticoagulation Allergies No Known Allergies Allergy (Verified 07/24/25 09:25) Medication List - Last Reconciled 07/24/25 by Jacqui Mendoza RN blood sugar diagnostic As directed bupropion HCl XL 300 mg PO DAILY buspirone 15 mg PO BID clonazepam 1 mg PO BEDTIME PRN cyanocobalamin (vitamin B-12) PO DAILY dulaglutide (Trulicity) mg subcut empagliflozin 25 mg PO DAILY gabapentin 300 mg PO TID linaclotide (Linzess) 145 mcg PO QAM 30 days metformin 500 mg PO BID metoprolol succinate ER 50 mg PO DAILY ondansetron 4 mg PO Q8H PRN 30 days prazosin 1 mg PO BEDTIME prochlorperazine maleate (Compazine) 10 mg PO Q12H PRN 30 days psyllium husk (with sugar) 3.4 gram/7 gram (Daily Fiber (psyllium-sucrose)) 1 tsp PO BID 90 days sennosides-docusate sodium 8.6-50 mg (Senna Plus) 2 tabs PO BEDTIME sertraline mg PO simvastatin 40 mg PO BEDTIME tadalafil 10 mg PO DAILY trazodone 150 mg PO BEDTIME warfarin mg See Protocol PO Nursing Note INR: 3.5 in therapeutic range 2.5-3.5 Medications and supplements reviewed No changes in health, diet, medications, or supplements, Denies any signs and symptoms of bleeding or bruising or clotting. Bleeding, bruising, clotting discussed Nutritional guidance given Dose: 8MG DAILY F/U INR: 1 MONTH Patient verbalizes understanding of instructions given Anti-Coag Initial Assessment Social Hx alcohol intake: former Alcohol intake frequency: holidays/special occasions only Coding Level of Care Code Est Patient Level 1 Diagnoses Current use of anticoagulant therapy Z79.01 Assessment & Plan Assessment & Plan (1) Current use of anticoagulant therapy: Code(s): Z79.01 - [facility] (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
--- OUTSIDE RECORDS SUMMARY | 2025-07-24 10:29 | XMS_ITS | Clinical Summary ---
Author Organization [facility] Address [address] [place] [address] Phone Care Team Providers Care Rug Washer Name Role Phone Vandana Lopez Primary Care P rovider Mildred GoodmanSW Unavailable [phone] Allergies No known active allergies Medications [...] Take 300 mg by mouth every morning. Active amoxicillin (AMOXIL) 500 MG capsule Take 2,000 mg by mouth daily as needed (For dental procedure). Active metoprolol tartrate (LOPRESSOR) 25 MG tablet Take 25 mg by mouth daily. 5 Active ondansetron (ZOFRAN-ODT) 4 MG disintegrating tablet Take 4 mg by mouth every 12 (twelve) hours as needed for nausea. Active traZODone (DESYREL) 150 MG tablet Take 150 mg by mouth nightly at bedtime. Active Active Problems No known active problems Immunizations Immunization Administration Dates Next Due COVID-19 [...] 2001 SCREENING FOR DIABETES 2010 PNEUMOCOCCAL VACCINES (50+ years) (2 of 2 - PCV) 11/23/2018 11/23/2017, 02/24/2006 COLOGUARD 2020 COLONOSCOPY 2020 COLORECTAL CANCER SCREENING 2020 FIT TEST 2020 FOBT 2020 SIGMOIDOSCOPY 2020 VIRTUAL COLONOSCOPY 2020 INFLUENZA VACCINE (#1) 2025 , 10/31/2023, 11/10/2022, Additional history exists ZOSTER VACCINES (1 of 2) 2025 CREATININE LEVEL 02/27/2026 02/27/2025 LIPID PANEL 02/27/2030 [...] EDT) SODIUM 138 133 - 146 mmol/L [facility] POTASSIUM 4.2 3.3 - 5.1 mmol/L [facility] CHLORIDE 103 96 - 108 mmol/L [facility] CO2 23 21 - 35 mmol/L [facility] BUN 23(H) 6 - 19 mg/dL [facility] CREATININE 0.80 0.5 - 1.5 mg/dL [facility] GLUCOSE 128(H) 70 - 99 mg/dL [facility] ALBUMIN 4.9(H) 3.9 - 4.8 g/dL [facility] TOTAL PROTEIN 7.5 6.5 - 8.0 g/dL [facility] CALCIUM 9.3 8.4 - 10.3 mg/dL [facility] ALKALINE PHOSPHATASE 61 39 - 117 U/L [facility] TOTAL BILIRUBIN 0.4 0.0 - 1.2 mg/dL [facility] AST 16 0 - 37 U/L [facility] ALT 17 0 - 40 U/L [facility] GLOBULIN 2.6 1 - 4.8 g/dL [facility] EGFR 108 >59 mL/min/1.7 3m2 [facility] Comment:Estimated glomerular filtration rate calculated using the CKD-EPI refit equation. ANION GAP 16 10 - 20 mmol/L [facility] Blood 02/27/2025 8:05 AM EDT 02/27/2025 9:17 AM EDT us Chapito Wilson MD LAB BLOOD ORDERABLES Final Resul t Performing Organization Address City/[facility]/ZIP Co de Phone Number [address] [address] * (ABNORMAL) Hepatitis C antibody, qualitative (02/27/2025 8:05 AM EDT) HCV REACTIVE(A) NON-REACTI VE [facility] Blood 02/27/2025 8:05 AM EDT 02/27/2025 9:17 AM EDT us Chapito Wilson MD LAB BLOOD ORDERABLES Final Resul t Performing Organization Address [facility] [[email or web address]] Co de Phone Number [address] [address] * (ABNORMAL) Lipid panel (02/27/2025 8:05 AM EDT) HDL 38 mg/dL [facility] Comment: Interpretation <40 mg/dL: Low HDL cholesterol (major risk factor for CHD) Greater than or equal to 60 mg/dL: High HDL cholesterol ( negative risk factor for CHD) HDL - cholesterol is affected by a number of factors, e.g. smoking, excerise, hormones, sex and age. CHOLESTEROL 136 0 - 240 mg/dL [facility] TRIGLYCERIDES 189(H) 30 - 160 mg/dL [facility] LDL 60 50 - 129 mg/dL [facility] Comment: LDL levels in terms of risk for coronary heart disease: <100 mg/dL: Optimal 100-129 mg/dL: Near or above optimal 130-159 mg/dL: Borderline high 160-189 mg/dL: High >190 mg/dL: Very High CARDIAC RISK RATIO 3.6 3.4 - 5.0 [facility] Blood 02/27/2025 8:05 AM EDT 02/27/2025 9:17 AM EDT us Chapito Wilson MD LAB BLOOD ORDERABLES Final Resul t [facility] [address] [place], [place] [id number] from Last 3 Months or Most Recently Relevant to Health Maintenance Insurance [employer] ACO [employer] A[employer] PART[employer]SH[employer] ACO ACO HEALTHY [facility] ACO Care Teams Rug Washer Relationship Specialty Start Date End Date Vandana Lopez PA [facility] [address] [place] [address] PCP - General Physician Diesel Lube Tech 02/27/25 Mildred Goodman [address] [phone] [email or web address] [employer] Transplant 03/04/25 Additional Source Comments The information contained in this document represents components of the legal health record. It is not the complete legal health record.[facility]
== END 2025-07-24 09:35 | disposition home or self-care (01) ==
LOC: HO.ACS 09:24
PROVIDERS: PCP Student in an Organized Health Care Education/Training Program; Visit Provider Internal Medicine Medical Oncology
DX: Z79.01 Long term (current) use of anticoagulants (principal)

== ENCOUNTER → 2025-07-24 09:24 | Outpatient (BNVA) | payer OTHER, SELFPAY | PROVIDERS: PCP Student in an Organized Health Care Education/Training Program; Visit Provider Internal Medicine Medical Oncology | DX: Z95.2 Presence of prosthetic heart valve (principal); Z79.01 Long term (current) use of anticoagulants; Z51.81 Encounter for therapeutic drug level monitoring | CPT/HCPCS: 85610; 99211 ==

== ENCOUNTER 2025-08-28 09:21 | Outpatient (AMB) | payer OTHER, SELFPAY ==
[2025-08-28 09:42] LABS: Prothrombin Time Whole Bld POC 41.8 sec (11.1-13.5); ~PT, ~INR - Anti Coag Clinic 3.5 (0.9-1.1)
--- NOTE | 2025-08-28 09:49 | MHC.OFFVISCO ---
Intake Intake Visit Reasons: Anticoagulation Allergies No Known Allergies Allergy (Verified 08/28/25 09:31) Medication List - Last Reconciled 08/28/25 by Jacqui Mendoza RN amoxicillin 2,000 mg PO blood sugar diagnostic As directed bupropion HCl XL 300 mg PO DAILY clonazepam 1 mg PO BEDTIME PRN cyanocobalamin (vitamin B-12) PO DAILY dulaglutide (Trulicity) mg subcut empagliflozin 25 mg PO DAILY gabapentin 300 mg PO TID hydroxyzine HCl mg PO linaclotide (Linzess) 145 mcg PO QAM PRN metformin 500 mg PO BID metoprolol succinate ER 25 mg PO DAILY ondansetron 4 mg PO Q8H PRN 30 days prazosin 1 mg PO BEDTIME psyllium husk (with sugar) 3.4 gram/7 gram (Daily Fiber (psyllium-sucrose)) 1 tsp PO BID 90 days sennosides-docusate sodium 8.6-50 mg (Senna Plus) 2 tabs PO BEDTIME sertraline mg PO simvastatin 40 mg PO BEDTIME tadalafil 10 mg PO DAILY trazodone 150 mg PO BEDTIME PRN warfarin mg See Protocol PO Nursing Note INR: 3.5 in therapeutic range- Trending hihger INRs -possibly r/t tylenol for generalized head ache body aches possibly 2 months- enc to discuss with PCP Medications and supplements reviewed No changes in health, diet, medications, or supplements, Denies any signs and symptoms of bleeding or bruising or clotting. 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
== END 2025-08-28 09:56 | disposition home or self-care (01) ==
LOC: HO.ACS 09:21
PROVIDERS: PCP Student in an Organized Health Care Education/Training Program; Visit Provider Internal Medicine Medical Oncology
DX: Z79.01 Long term (current) use of anticoagulants (principal)

== ENCOUNTER → 2025-08-28 09:21 | Outpatient (BNVA) | payer OTHER, SELFPAY | PROVIDERS: PCP Student in an Organized Health Care Education/Training Program; Visit Provider Internal Medicine Medical Oncology | DX: Z95.2 Presence of prosthetic heart valve (principal); Z79.01 Long term (current) use of anticoagulants; Z51.81 Encounter for therapeutic drug level monitoring | CPT/HCPCS: 85610; 99211 ==

== ENCOUNTER 2025-09-25 09:24 | Outpatient (AMB) | payer OTHER, SELFPAY ==
[2025-09-25 09:50] LABS: Prothrombin Time Whole Bld POC 35.3 sec (11.1-13.5); ~PT, ~INR - Anti Coag Clinic 2.9 (0.9-1.1)
--- NOTE | 2025-09-25 09:57 | MHC.OFFVISCO ---
Intake Intake Visit Reasons: Anticoagulation Allergies No Known Allergies Allergy (Verified 09/25/25 09:41) Medication List - Last Reconciled 09/25/25 by Jacqui Mendoza RN amoxicillin 2,000 mg PO blood sugar diagnostic As directed bupropion HCl XL 300 mg PO DAILY clonazepam 1 mg PO BEDTIME PRN cyanocobalamin (vitamin B-12) PO DAILY dulaglutide (Trulicity) mg subcut empagliflozin 25 mg PO DAILY gabapentin 300 mg PO TID hydroxyzine HCl mg PO linaclotide (Linzess) 145 mcg PO QAM PRN [marijuana PO] metformin 500 mg PO BID metoprolol succinate ER 25 mg PO DAILY ondansetron 4 mg PO Q8H PRN 30 days prazosin 1 mg PO BEDTIME psyllium husk (with sugar) 3.4 gram/7 gram (Daily Fiber (psyllium-sucrose)) 1 tsp PO BID 90 days sennosides-docusate sodium 8.6-50 mg (Senna Plus) 2 tabs PO BEDTIME sertraline mg PO simvastatin 40 mg PO BEDTIME tadalafil 10 mg PO DAILY trazodone 150 mg PO BEDTIME PRN warfarin mg See Protocol PO Nursing Note INR: 2.9 in therapeutic range- has been having issues with constipation - discussed his bowel care plan - he is taking linzess and will be resuming metamucil at night and if that helps he may stop linzess Medications and supplements reviewed No changes in diet, medications, or supplements, Denies any signs and symptoms of bleeding or bruising or clotting. Bleeding, bruising, clotting discussed Nutritional guidance given Dose: keep same dose 8mg daily F/U INR: 1 month Patient verbalizes understanding of instructions given Anti-Coag Initial Assessment Social Hx alcohol intake: former Alcohol intake frequency: holidays/special occasions only Coding Level of Care Code Est Patient Level 1 Diagnoses Current use of anticoagulant therapy Z79.01 Results AMB INR Fingerstick AMB INR Fingerstick 2.9 Last Edit by Jacqui Mendoza RN on 09/25/25 09:49 manual Assessment & Plan Assessment & Plan (1) Current use of anticoagulant therapy: Code(s): Z79.01 - snf (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
--- OUTSIDE RECORDS SUMMARY | 2025-09-25 10:17 | XMS_ITS | Clinical Summary ---
Author Organization [facility] Address [address] [place] [address] Phone Care Team Providers Care Producer Director Name Role Phone Vandana Lopez Primary Care P rovider Mildred GoodmanSW Unavailable [phone] Allergies No known active allergies Medications [...] 2025 , 10/31/2023, 11/10/2022, Additional history exists RSV VACCINE (1 - Risk 50-74 years 1-dose series) 2025 ZOSTER VACCINES (1 of 2) 2025 COVID-19 VACCINE ( - season) 2025 07/31/2024, 10/26/2022, 09/14/2021, Additional history exists CREATININE LEVEL 02/27/2026 02/27/2025 LIPID PANEL 02/27/2030 02/27/2025 Adult Td,Tdap Booster 01/18/2033 01/18/2023 HEPATITIS C SCREENING Completed 02/27/2025 , 02/27/2025, 02/27/2025, Additional history exists HIV ONE-TIME SCREENING (18-65 YEARS) Completed 02/27/2025 HIB VACCINES Aged Out No longer eligi ble based on patient's age to complete this topic IPV VACCINES Aged Out No longer eligi ble [...] hepatitis C screening test COMPREHENSIVE METABOLIC PANEL (CMP) Routine 02/27/2025 8:05 AM EDT Encounter for pre-transplant evaluation for liver transplant History of hepatitis C virus infection Alcoholic cirrhosis from Last 3 Months or Most Recently Relevant to Health Maintenance Results * (ABNORMAL) Comprehensive metabolic panel (02/27/2025 8:05 AM EDT) SODIUM 138 133 - 146 mmol/L [facility] POTASSIUM 4.2 3.3 - 5.1 mmol/L [facility] CHLORIDE 103 96 - 108 mmol/L [facility] CO2 23 21 - 35 mmol/L [facility] BUN 23(H) 6 - 19 mg/dL [facility] CREATININE 0.80 0.5 - 1.5 mg/dL [facility] GLUCOSE 128(H) 70 - 99 mg/dL [facility] ALBUMIN 4.9(H) 3.9 - 4.8 g/dL [facility] TOTAL PROTEIN 7.5 6.5 - 8.0 g/dL [facility] CALCIUM 9.3 8.4 - 10.3 mg/dL [facility] ALKALINE PHOSPHATASE 61 39 - 117 U/L [facility] TOTAL BILIRUBIN 0.4 0.0 - 1.2 mg/dL [facility] AST 16 0 - 37 U/L [facility] ALT 17 0 - 40 U/L [facility] GLOBULIN 2.6 1 - 4.8 g/dL [facility] EGFR 108 >59 mL/min/1.7 3m2 [facility] Comment:Estimated glomerular filtration rate calculated using the CKD-EPI refit equation. ANION GAP 16 10 - 20 mmol/L [facility] Blood 02/27/2025 8:05 AM EDT 02/27/2025 9:17 AM EDT Chapito Wilson MD LAB BLOOD BKR ORDERABLES Final R esult Performing Organization Address City/[facility]/ZIP Co de Phone Number [address] [address] * (ABNORMAL) Hepatitis C antibody, qualitative (02/27/2025 8:05 AM EDT) HCV REACTIVE(A) NON-REACTI VE [facility] Blood 02/27/2025 8:05 AM EDT 02/27/2025 9:17 AM EDT Chapito Wilson MD LAB BLOOD BKR ORDERABLES Final R esult Performing Organization Address [facility] Co de Phone Number [address] [address] * (ABNORMAL) Lipid panel (02/27/2025 8:05 AM EDT) HDL 38 mg/dL [facility] Comment: Interpretation <40 mg/dL: Low HDL cholesterol (major risk factor for CHD) Greater than or equal to 60 mg/dL: High HDL cholesterol ( negative risk factor for CHD) HDL - cholesterol is affected by a number of factors, e.g. smoking, excerise, hormones, sex and age. CHOLESTEROL 136 0 - 240 mg/dL [facility] TRIGLYCERIDES 189(H) 30 - 160 mg/dL [facility] LDL 60 50 - 129 mg/dL [facility] Comment: LDL levels in terms of risk for coronary heart disease: <100 mg/dL: Optimal 100-129 mg/dL: Near or above optimal 130-159 mg/dL: Borderline high 160-189 mg/dL: High >190 mg/dL: Very High CARDIAC RISK RATIO 3.6 3.4 - 5.0 C [facility] Blood 02/27/2025 8:05 AM EDT 02/27/2025 9:17 AM EDT us Chapito Wilson MD LAB BLOOD BKR ORDERABLES Final R esult [address] [address] from Last 3 Months or Most Recently Relevant to Health Maintenance Insurance [employer] [place] [address] [place] [address] ACO ACO ACO [facility] [employer] ACO Care Teams Producer Director Relationship Specialty Start Date End Date Vandana Lopez PA Asana [address] [id number] PCP - General Physician Bunker Worker 02/27/25 Mildred Goodman L[facility] [phone] [email or web address] Helpdesk Technician Transplant 03/04/25 Additional Source Comments The information contained in this document represents components of the legal health record. It is not the complete legal health record.[facility]
== END 2025-09-25 10:01 | disposition home or self-care (01) ==
LOC: HO.ACS 09:24
PROVIDERS: PCP Student in an Organized Health Care Education/Training Program; Visit Provider Internal Medicine Medical Oncology
DX: Z79.01 Long term (current) use of anticoagulants (principal)

== ENCOUNTER → 2025-09-25 09:24 | Outpatient (BNVA) | payer OTHER, SELFPAY | PROVIDERS: PCP Student in an Organized Health Care Education/Training Program; Visit Provider Internal Medicine Medical Oncology | DX: Z95.2 Presence of prosthetic heart valve (principal); Z51.81 Encounter for therapeutic drug level monitoring; Z79.02 Long term (current) use of antithrombotics/antiplatelets | CPT/HCPCS: 85610; 99211 ==

== ENCOUNTER 2025-10-30 09:15 | Outpatient (AMB) | payer OTHER, SELFPAY ==
[2025-10-30 09:25] LABS: Prothrombin Time Whole Bld POC 37.7 sec (11.1-13.5); ~PT, ~INR - Anti Coag Clinic 3.1 (0.9-1.1)
--- NOTE | 2025-10-30 09:28 | MHC.OFFVISCO ---
Intake Intake Visit Reasons: Anticoagulation Allergies No Known Allergies Allergy (Verified 10/30/25 09:19) Medication List - Last Reconciled 10/30/25 by Hawa Diaz RN amoxicillin 2,000 mg PO blood sugar diagnostic As directed bupropion HCl XL 300 mg PO DAILY clonazepam 1 mg PO BEDTIME PRN cyanocobalamin (vitamin B-12) PO DAILY dulaglutide (Trulicity) mg subcut empagliflozin 25 mg PO DAILY gabapentin 300 mg PO TID hydroxyzine HCl mg PO linaclotide (Linzess) 145 mcg PO QAM PRN [marijuana PO] metformin 500 mg PO BID metoprolol succinate ER 25 mg PO DAILY ondansetron 4 mg PO Q8H PRN 30 days prazosin 1 mg PO BEDTIME psyllium husk (with sugar) 3.4 gram/7 gram (Daily Fiber (psyllium-sucrose)) 1 tsp PO BID 90 days sennosides-docusate sodium 8.6-50 mg (Senna Plus) 2 tabs PO BEDTIME sertraline mg PO simvastatin 40 mg PO BEDTIME tadalafil 10 mg PO DAILY trazodone 150 mg PO BEDTIME PRN warfarin mg See Protocol PO Nursing Note INR: 3.1 in therapeutic range of 2.5-3.5 Medications and supplements reviewed No changes in health, diet, medications, or supplements, Denies any signs and symptoms of bleeding or bruising or clotting. Bleeding, bruising, clotting discussed Nutritional guidance given Dose: 8mg daily F/U INR: 5 weeks Patient verbalizes understanding of instructions given Anti-Coag Initial Assessment Social Hx alcohol intake: former Alcohol intake frequency: holidays/special occasions only Coding Level of Care Code Est Patient Level 1 Diagnoses Current use of anticoagulant therapy Z79.01 Results AMB INR Fingerstick AMB INR Fingerstick 3.1 Last Edit by Hawa Diaz RN on 10/30/25 09:25 interface delay Assessment & Plan Assessment & Plan (1) Current use of anticoagulant therapy: Code(s): Z79.01 - terminal block assembler (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
== END 2025-10-30 09:33 | disposition home or self-care (01) ==
LOC: HO.ACS 09:15
PROVIDERS: PCP Student in an Organized Health Care Education/Training Program; Visit Provider Internal Medicine Medical Oncology
DX: Z79.01 Long term (current) use of anticoagulants (principal)

== ENCOUNTER → 2025-10-30 09:15 | Outpatient (BNVA) | payer OTHER, SELFPAY | PROVIDERS: PCP Student in an Organized Health Care Education/Training Program; Visit Provider Internal Medicine Medical Oncology | DX: Z95.2 Presence of prosthetic heart valve (principal); Z51.81 Encounter for therapeutic drug level monitoring; Z79.01 Long term (current) use of anticoagulants | CPT/HCPCS: 85610; 99211 ==